=== PATIENT | female | born 1995 | race Caucasian/White ===

== ENCOUNTER 2020-06-14 13:21 | Emergency (ER) | payer BC, SELFPAY ==
[2020-06-14 13:59] VITALS: BP 116/75; PULSE 67; RESP 18; TEMP 36.7; O2SAT 100; BMI 22.1
--- NOTE | 2020-06-14 14:17 | HMH.EDUTC ---
[facility] [place] Clinical Impression: Carpal tunnel syndrome Qualifiers: Laterality: bilateral Qualified Code(s): G56.03 - Carpal tunnel syndrome, bilateral upper limbs Wrist pain Qualifiers: Laterality: bilateral Qualified Code(s): M25.531 - Pain in right wrist Migraine headache Qualifiers: Migraine type: unspecified Status migrainosus presence: without status migrainosus Intractability: not intractable Qualified Code(s): G43.909 - Migraine, unspecified, not intractable, without status migrainosus Disposition: Home, Self-Care Condition on Discharge: Good Instructions: Carpal Tunnel Syndrome, DI for Migraine, DI for Carpal Tunnel Syndrome Additional Instructions: Take the medications as directed. Follow up with orthopedics regarding your wrist symptoms. I put in a referral to Dr. Molina. Wear the elastic wrist splints that I prescribed while you sleep. Follow up with your doctor. GO TO THE ER FOR ANY WORSENING SYMPTOMS OR CONCERNS. Prescriptions: methylPREDNISolone [Medrol] 4 mg PO DIRECTED 6 Days #21 tab.[email or web address] Transmission Status: Received by [id number] Referrals: Jacqueline Isbell PA [Primary Care Provider] - Tami Molina MD [Physician] - Medical Decision Making - Medical Records Medical records reviewed: No: I reviewed the patient's medical records. - Wili Inquiry Pt receiving controlled substance: No Vital Signs: 06/14/20 13:59 06/14/20 15:08 Temperature 98.0 F 98.0 F Temperature Source Oral Oral Pulse Rate 67 Pulse Rate [Radial] 67 Respiratory Rate 18 18 Blood Pressure 116/75 Blood Pressure [Right Arm] 116/75 Blood Pressure Mean [Right Arm] 88 Blood Pressure Source Automatic Cuff Blood Pressure Source [Right Arm] Automatic Cuff Blood Pressure Position Sitting Blood Pressure Position [Right Arm] Sitting 02 Sat by Pulse Oximetry 100 Oxygen Delivery Method Room Air Room Air Orders (Tests/Meds): ED MEDICATIONS Discontinued Medications Generic Name Dose Route Start Last Admin Trade Name Freq PRN Reason Stop Dose Admin Ketorolac Tromethamine 60 mg 06/14/20 14:23 06/14/20 14:29 Toradol 60mg/2ml Vial IM 06/14/20 14:24 60 mg ONCE ONE Administration [facility] [place] - General Stated complaint: wrist pain,yuri harris Time Seen by Provider: 06/14/20 14:18 Mode of Arrival: Ambulatory Source of Information: Patient Limitations: No Limitations Description of Symptoms (Recalled from Triage Doc. by RN): bilateral wrist pain and migraines HEENT Symptoms (Recalled from RN notes): No Resp Symptoms (Recalled from RN notes): No Skin Symptoms (Recalled from RN notes): No MS Symptoms (Recalled from RN notes): Yes Functional Status (Recalled from RN notes): wnl - History of Present Illness Provider Complaint: She c/o chronic bilateral wrist pain and intermitent hand numbness. This has been ongoing for the past 3 months or so. She has been having a migraine headache for the past 2 days. She has taken tylenol with only minimal relief. - Related Data Previous Rx's Medication Instructions Recorded methylPREDNISolone [Medrol] 4 mg PO DIRECTED 6 Days #21 06/14/20 tab.ds.pk Allergies Allergy/AdvReac Type Severity Reaction Status Date / Time amoxicillin Allergy Verified 06/14/20 14:03 - Worker's Comp Is this a Worker's Comp case?: No [facility] History - Hepatitis A Screen Drug use history?: No High risk sexual behaviors?: No History of sexually transmitted infection?: No Currently employed?: No Childcare worker?: No Do you have indoor plumbing?: Yes Do you have electricity?: Yes Attestation statement:: This patient has been screened for Hepatitis A risk factors. I have reviewed the patient's past medical history: Yes - 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 Smoking Status: Current every day smoker Tobacco Type: e-cigarettes # Packs/Day (cigarettes): 1 Alcohol Intake: never Occupational Status: employed ROS Obtained: Yes All systems
[2020-06-14 15:08] VITALS: BP 116/75; PULSE 67; RESP 18; TEMP 36.7; O2SAT 100
== END 2020-06-14 15:08 | disposition home or self-care (01) ==
PROVIDERS: Emergency Provider Nurse Practitioner Family; PCP Physician Assistant
DX: G56.03 Carpal tunnel syndrome, bilateral upper limbs (principal); G43.909 Migraine, unspecified, not intractable, without status migrainosus; Z88.1 Allergy status to other antibiotic agents; F17.290 Nicotine dependence, other tobacco product, uncomplicated
CPT/HCPCS: 96372; 99201

== ENCOUNTER → 2020-06-26 12:57 | Outpatient (CLI) | payer BC, SELFPAY ==
--- NOTE | 2020-06-26 13:02 | XR_ITS ---
PROCEDURE: XR WRIST LT MIN 3V CLINICAL INDICATION: left wrist pain COMPARISON: DX XR WRIST RT MIN 3V from 06/26/2020 FINDINGS: No fracture or dislocation. No lytic or blastic change. There is normal mineralization. The joint spaces are well-preserved. No significant degenerative/arthritic changes. No erosive changes evident. Other findings:There is a faint curvilinear lucency along the radial styloid process region. This is of questionable clinical significance. Possibly due to artifact from underlying prominent trabeculation. Please correlate as the patient's area of pain and tenderness IMPRESSION: No definite acute finding. Please see above for detail Dictated by: Jim Márquez MD 06/26/2020 16:56 Jim Márquez MD in [place] 06/26/2020 16:56
--- NOTE | 2020-06-26 13:02 | XR_ITS ---
PROCEDURE: XR WRIST RT MIN 3V CLINICAL INDICATION: right wrist pain COMPARISON: No exams were available for comparison FINDINGS: No fracture or dislocation. No lytic or blastic change. There is normal mineralization. The joint spaces are well-preserved. No significant degenerative/arthritic changes. No erosive changes evident. Other findings:None. IMPRESSION: No acute findings. Dictated by: Jim Márquez MD 06/26/2020 16:54 Jim Márquez MD in [place] 06/26/2020 16:54
== END ==
PROVIDERS: PCP Physician Assistant; Visit Provider Orthopaedic Surgery
DX: M25.532 Pain in left wrist (principal); M25.531 Pain in right wrist
CPT/HCPCS: 73110

== ENCOUNTER → 2020-07-24 11:53 | Outpatient (CLI) | payer BC, SELFPAY ==
[2020-07-24 14:21] LABS: HCG,Quantitative < 2 mIU/ml (0-5.42)
== END ==
PROVIDERS: Visit Provider Obstetrics & Gynecology
DX: Z32.00 Encounter for pregnancy test, result unknown (principal); E28.2 Polycystic ovarian syndrome
CPT/HCPCS: 36415; 84144; 84702

== ENCOUNTER → 2020-09-23 17:43 | Outpatient (CLI) | payer BC, SELFPAY ==
[2020-09-23 19:24] LABS: Basophils % 0.6 % (0.1-2.0); Eosinophils # 0.1 K/mm3 (0.0-0.4); Eosinophils % 1.7 % (0.1-12.0); Hematocrit 46.4 % (37.0-47.0); Lymphocytes # 2.1 K/mm3 (0.7-4.5); Mean Corpuscular HGB Conc 32.2 g/dL (31.8-35.4); Mean Corpuscular Volume 96.3 fl (81-99); Mean Platelet Volume 8.7 fl (7.4-10.4); Monocytes # 0.3 K/mm3 (0.1-1.0); Monocytes % 5.5 % (1.7-9.3); Neutrophils # 3.2 K/mm3 (1.8-7.8); Neutrophils % 55.2 % (37.0-80.0); Platelet Count 253 K/mm3 (142-424); Red Blood Count 4.82 M/mm3 (4.20-5.40); Red Cell Distribution Width 12.3 % (11.5-17.5); White Blood Count 5.8 K/mm3 (4.8-10.8)
[2020-09-23 19:30] LABS: Alanine Aminotransferase 10 U/L (12-78); Albumin Level 4.7 g/dl (3.5-5.0); Albumin/Globulin Ratio 1.5 (1.1-1.8); Alkaline Phosphatase 64 U/L (38-126); Anion Gap 13.2 mEq/L (5-15); Aspartate Amino Transferase 19 U/L (14-36); Bilirubin,Total 0.4 mg/dl (0.2-1.3); Blood Urea Nitrogen 16 mg/dl (7-17); Calcium 9.6 mg/dl (8.4-10.2); Carbon Dioxide 30 mmol/L (22.0-30.0); Chloride 103 mmol/L (98-107); Chol/HDL Ratio 2.8 (1-3.5); Cholesterol 165 mg/dl (140-200); Estimated Glomerular Filt Rate 87 ml/min (>60); GFR (African American) 106 ML/MIN (>60); Globulin 3.1 g/dL (1.3-3.2); Glucose 90 mg/dl (74-100); HDL Cholesterol 58 mg/dl (40-60); Potassium 4.2 mmoL/L (3.5-5.1); Sodium 142 mmol/L (136-145); Total Protein,Serum 7.8 g/dl (6.3-8.2); Triglycerides 88 mg/dl (30-150); VLDL Cholesterol 18 mg/dL (0-40)
[2020-09-23 19:41] LABS: Direct LDL Cholesterol 88.65 mg/dL (100-129)
[2020-09-23 19:45] LABS: Free T4 (Free Thyroxine) 1.03 ng/dl (0.78-2.19)
[2020-09-23 19:47] LABS: 25-OH Vitamin D, Total 34.2 ng/mL (30-100)
[2020-09-23 20:01] LABS: Thyroid Stimulating Hormone 1.67 uIU/mL (0.465-4.68)
== END ==
PROVIDERS: Visit Provider Physician Assistant
DX: Z00.00 Encounter for general adult medical examination without abnormal findings (principal)
CPT/HCPCS: 80053; 80061; 82306; 84439; 84443; 85025

== ENCOUNTER → 2020-10-12 12:56 | Outpatient (CLI) | payer BC, SELFPAY ==
[2020-10-12 14:49] LABS: HCG,Quantitative < 2 mIU/ml (0-5.42)
== END ==
PROVIDERS: Visit Provider Obstetrics & Gynecology
DX: N92.6 Irregular menstruation, unspecified (principal)
CPT/HCPCS: 36415; 84702

== ENCOUNTER → 2020-10-14 10:10 | Outpatient (CLI) | payer BC, SELFPAY ==
[2020-10-14 11:20] LABS: HCG,Quantitative < 2 mIU/ml (0-5.42)
== END ==
PROVIDERS: Visit Provider Obstetrics & Gynecology
DX: Z32.00 Encounter for pregnancy test, result unknown (principal)
CPT/HCPCS: 36415; 84702

== ENCOUNTER 2020-11-17 16:51 | Emergency (ER) | payer BC, SELFPAY ==
[2020-11-17 16:51] VITALS: BP 96/64; PULSE 71; RESP 14; TEMP 36.3; O2SAT 96; BMI 24.2
--- NOTE | 2020-11-17 17:39 | HMH.EDUTC ---
[facility] – [place] Disposition Clinical Impression: Viral syndrome, Exposure to COVID-19 virus Disposition: Home, Self-Care Condition on Discharge: Good Instructions: Preventing the Spread of Coronavirus Discharge Instructions Additional Instructions: Drink plenty of fluids. Take tylenol for pain or fever. Return if you begin to have difficulty breathing. Follow up with your regular doctor. GO TO THE ER FOR ANY WORSENING SYMPTOMS Referrals: Jacqueline Isbell PA [Primary Care Provider] - Time of Disposition: 17:48 Medical Decision Making - Medical Records Medical records reviewed: No: I reviewed the patient's medical records. - Wili Inquiry Pt receiving controlled substance: No Vital Signs: 11/17/20 16:51 11/17/20 17:49 Temperature 97.4 F L 97.4 F L Temperature Source Oral Oral Pulse Rate 71 Pulse Rate [Right] 71 Respiratory Rate 14 14 Blood Pressure 96/64 L Blood Pressure [Right Arm] 96/64 L Blood Pressure Mean [Right Arm] 74 02 Sat by Pulse Oximetry 96 [facility] – [place] HPI - General Stated complaint: covid test Time Seen by Provider: 11/17/20 17:39 Mode of Arrival: Ambulatory Description of Symptoms (Recalled from Triage Doc. by RN): pt request covid pt c/o BROWN, chills, body ache HEENT Symptoms (Recalled from RN notes): Yes Resp Symptoms (Recalled from RN notes): Yes Skin Symptoms (Recalled from RN notes): No MS Symptoms (Recalled from RN notes): No Functional Status (Recalled from RN notes): wnl - History of Present Illness Provider Complaint: She c/o chills, body aches, and feeling bad for the past 2 days. - Related Data Previous Rx's Medication Instructions Recorded sumatriptan succinate 100 mg tablet See Rx Instructions .ROUTE 08/26/20 .COMPLEX #9 each azithromycin 250 mg tablet See Rx Instructions PO .COMPLEX #6 09/23/20 tab clonazepam 0.5 mg tablet 0.5 mg PO BID #60 tab 09/23/20 prednisone 20 mg tablet 20 mg PO BID #10 tab 09/23/20 Allergies Allergy/AdvReac Type Severity Reaction Status Date / Time amoxicillin Allergy Verified 11/17/20 17:27 - Worker's Comp Is this a Worker's Comp case?: No Is this an [facility] Worker's Comp?: No Is this a [facility] Worker's Comp?: No [facility] History - Hepatitis A Screen Drug use history?: No High risk sexual behaviors?: No History of sexually transmitted infection?: No Currently employed?: No Childcare worker?: No Do you have indoor plumbing?: Yes Do you have electricity?: Yes Attestation statement:: This patient has been screened for Hepatitis A risk factors. I have reviewed the patient's past medical history: Yes 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: Reports:: Anxiety, Migraine Other 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: Reports: Other Other Surgeries: Yes: Other Amputation: No Fractures: No Comment: kidney stone, wisdom teeth - 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 Smoking Status: Current every day smoker Tobacco Type: e-cigarettes # Packs/Day (cigarettes): 1 Alcohol Intake: current Alcohol Intake Frequency:: holidays/special occasions only Substance Use Type: denies use Occupational Status: unemployed - Psychiatric History Pschychiatric History:: Reports:: Anxiety Family Hx:: Heart Attack, Alcoholism ROS Obtained: Yes All systems reviewed & no additional complaints - Constitutional Constitutional: Reports system reviewed and no additional complaints, except as docu - Eyes Eyes: Reports system reviewed and no additional complaints, except as docu - ENT Ears, Nose, Mouth, and Throat: Reports system reviewed and no additional complaints, except as docu - Cardiovascular Cardiovascular: Reports system reviewed and no additional complaints, except as docu - Respiratory Respiratory: Reports system reviewed and no additional complaints, except as docu - Gastrointestinal Gastrointestingal: Reports: system reviewed and no additional complaints, except as docu Physical Exam - General General appearance: alert, in no apparent distress - Head Head exam: atraumatic, no
[2020-11-17 17:49] VITALS: BP 96/64; PULSE 71; RESP 14; TEMP 36.3; O2SAT 96
[2020-11-19 12:12] LABS: Covid-19 Nasal PCR Sendout P&C NEGATIVE
== END 2020-11-17 17:53 | disposition home or self-care (01) ==
PROVIDERS: Emergency Provider Nurse Practitioner Family; PCP Physician Assistant
DX: Z20.822 Contact with and (suspected) exposure to COVID-19 (principal); B34.9 Viral infection, unspecified; G43.709 Chronic migraine without aura, not intractable, without status migrainosus; F17.290 Nicotine dependence, other tobacco product, uncomplicated
CPT/HCPCS: 99202; G0463; U0004

== ENCOUNTER → 2020-12-28 13:37 | Outpatient (CLI) | payer BC, SELFPAY ==
[2020-12-28 15:15] LABS: HCG,Quantitative 330 mIU/ml (0-5.42)
== END ==
PROVIDERS: Visit Provider Obstetrics & Gynecology
DX: Z32.00 Encounter for pregnancy test, result unknown (principal)
CPT/HCPCS: 84702

== ENCOUNTER → 2020-12-29 12:17 | Outpatient (CLI) | payer BC, SELFPAY ==
[2020-12-29 13:26] LABS: HCG,Quantitative 263 mIU/ml (0-5.42)
== END ==
PROVIDERS: Visit Provider Obstetrics & Gynecology
DX: Z32.00 Encounter for pregnancy test, result unknown (principal)
CPT/HCPCS: 36415; 84702

== ENCOUNTER → 2021-02-08 10:03 | Outpatient (CLI) | payer BC, SELFPAY ==
[2021-02-08 11:26] LABS: HCG,Quantitative 13323 mIU/ml (0-5.42)
== END ==
PROVIDERS: Visit Provider Obstetrics & Gynecology
DX: Z34.90 Encounter for supervision of normal pregnancy, unspecified, unspecified trimester (principal)
CPT/HCPCS: 36415; 84702

== ENCOUNTER → 2021-02-10 10:38 | Outpatient (CLI) | payer BC, SELFPAY ==
[2021-02-10 12:21] LABS: HCG,Quantitative 19828 mIU/ml (0-5.42)
== END ==
PROVIDERS: Visit Provider Obstetrics & Gynecology
DX: Z34.90 Encounter for supervision of normal pregnancy, unspecified, unspecified trimester (principal)
CPT/HCPCS: 36415; 84702

== ENCOUNTER → 2021-02-19 13:15 | Outpatient (CLI) | payer BC, SELFPAY ==
--- NOTE | 2021-02-19 13:15 | US_ITS ---
PROCEDURE: US OB <= 14 WEEKS FETUS CLINICAL INDICATION: Dates Evaluate for dates COMPARISON: No exams were available for comparison FINDINGS: An intrauterine gestational sac is present with a pole with a crown-rump length of 1.06cm correlating to gestational age of 7weeks 2days. heart tones are present with an FHR of 140bpm. Yolk sac is noted. There is a 1.6 cm right corpus luteum IMPRESSION: Live IUP at 7 weeks 2 days Estimated due date by Ultrasound is 10/06/2021 Dictated by: Jim Márquez MD 02/19/2021 19:10 Jim Márquez MD in [place] 02/19/2021 19:10
== END ==
PROVIDERS: PCP Physician Assistant; Visit Provider Obstetrics & Gynecology
DX: Z34.90 Encounter for supervision of normal pregnancy, unspecified, unspecified trimester (principal)
CPT/HCPCS: 76801

== ENCOUNTER → 2021-02-25 15:43 | Outpatient (CLI) | payer BC, SELFPAY ==
[2021-02-25 16:19] LABS: Basophils % 0.3 % (0.1-2.0); Eosinophils # 0.1 K/mm3 (0.0-0.4); Eosinophils % 0.6 % (0.1-12.0); Hematocrit 43.1 % (37.0-47.0); Hemoglobin 13.9 g/dL (12.2-16.2); Lymphocytes # 1.9 K/mm3 (0.7-4.5); Lymphocytes % 22.2 % (10-50); Mean Corpuscular HGB Conc 32.3 g/dL (31.8-35.4); Mean Corpuscular Hemoglobin 30.1 pg (27.0-31.2); Mean Corpuscular Volume 93.1 fl (81-99); Mean Platelet Volume 8.4 fl (7.4-10.4); Monocytes # 0.3 K/mm3 (0.1-1.0); Monocytes % 3.5 % (1.7-9.3); Neutrophils # 6.2 K/mm3 (1.8-7.8); Neutrophils % 73.4 % (37.0-80.0); Platelet Count 241 K/mm3 (142-424); Red Blood Count 4.63 M/mm3 (4.20-5.40); Red Cell Distribution Width 12.3 % (11.5-17.5); White Blood Count 8.5 K/mm3 (4.8-10.8)
[2021-02-27 08:58] LABS: HIV Screen 4th Generation wRfx Non Reactive (Non Reactive); Rubella Antibodies, IgG 5.62 index (Immune >0.99)
[2021-02-27 09:12] LABS: Rapid Plasma Reagin Ab Titer Non Reactive (NonRea<1:1)
[2021-02-27 17:14] LABS: Hepatitis B Surface Antigen Negative (Negative); Hepatitis C Antibody <0.1 s/co ratio (0.0-0.9)
== END ==
PROVIDERS: Visit Provider Obstetrics & Gynecology
DX: Z34.90 Encounter for supervision of normal pregnancy, unspecified, unspecified trimester (principal)
CPT/HCPCS: 36415; 85025; 86592; 86703; 86762; 86850; 87340; 87380; G0432

== ENCOUNTER 2021-03-19 09:43 | Emergency (ER) | payer BC, SELFPAY ==
[2021-03-19 09:45] VITALS: BP 122/59; PULSE 95; RESP 20; TEMP 36.9; O2SAT 98; BMI 25.9
--- NOTE | 2021-03-19 10:11 | HMH.EDUTC ---
[facility] – [place] Disposition Clinical Impression: Strep throat Disposition: Home, Self-Care Condition on Discharge: Good Instructions: DI for Strep Throat Additional Instructions: Start antibiotics today be sure to take it as ordered with the full length of time although you should start feeling better in 24-48 hours. Change toothbrush and toothpaste 24-48 hours after starting antibiotics Tylenol or Motrin as needed for fever or pain Encourage fluids, water, Gatorade, Powerade, try cold fluids, popsicles, ice cream will make it feel better You are contagious for 24 hours. Avoid kissing anyone, no eating or drinking after anyone. You are contagious. Follow-up the ER for new or worsening symptoms or no noticeable improvement over the next 24-48 hours. Follow-up with PCP this week. Prescriptions: Azithromycin [Zithromax 250mg tab] 250 mg PO DIRECTED #6 tab Transmission Status: Pending to [facility] Referrals: Jacqueline Isbell PA [Primary Care Provider] - Time of Disposition: 10:19 Medical Decision Making - Wili Inquiry Pt receiving controlled substance: No Vital Signs: 03/19/21 09:45 Temperature 98.4 F Temperature Source Oral Pulse Rate [Left Brachial] 95 H Respiratory Rate 20 Blood Pressure [Left Arm] 122/59 L Blood Pressure Mean [Left Arm] 80 Blood Pressure Source [Left Arm] Automatic Cuff Blood Pressure Position [Left Arm] Sitting 02 Sat by Pulse Oximetry 98 Oxygen Delivery Method Room Air [facility] [place] HPI - General Chief complaint: Urgent [facility] Stated complaint: sore throat,cough Time Seen by Provider: 03/19/21 10:11 Mode of Arrival: Ambulatory Source of Information: Patient Limitations: No Limitations Description of Symptoms (Recalled from Triage Doc. by RN): PATIENT C/O SORE THROAT X 2-3 DAYS. SON RECENTLY TESTED POSITIVE FOR STREP. PATIENT IS 11 WEEKS HEENT Symptoms (Recalled from RN notes): Yes Resp Symptoms (Recalled from RN notes): No Skin Symptoms (Recalled from RN notes): No MS Symptoms (Recalled from RN notes): No Functional Status (Recalled from RN notes): WNL - History of Present Illness Provider Complaint: 25 yr old female presents for sore throat x3 days. son recently dx with strep.pt is - Related Data Previous Rx's Medication Instructions Recorded promethazine 12.5 mg tablet 12.5 mg PO Q6H PRN #30 tab 02/23/21 Azithromycin [Zithromax 250mg 250 mg PO DIRECTED #6 tab 03/19/21 tab] Allergies Allergy/AdvReac Type Severity Reaction Status Date / Time amoxicillin Allergy Verified 03/18/21 11:40 - Worker's Comp Is this a Worker's Comp case?: No H History - Hepatitis A Screen Drug use history?: No High risk sexual behaviors?: No History of sexually transmitted infection?: No Currently employed?: No Childcare worker?: No Do you have indoor plumbing?: Yes Do you have electricity?: Yes Attestation statement:: This patient has been screened for Hepatitis A risk factors. I have reviewed the patient's past medical history: Yes 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: Reports:: Anxiety, Migraine Other 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: Reports: Other Other Surgeries: Yes: Other Amputation: No Fractures: No Comment: kidney stone, wisdom teeth - 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 Smoking Status: Former smoker Tobacco Type: e-cigarettes # Packs/Day (cigarettes): 1 Alcohol Intake: never Alcohol Intake Frequency:: holidays/special occasions only Substance Use Type: denies use Occupational Status: other - Psychiatric History Pschychiatric History:: Reports:: Anxiety Family Hx:: Heart Attack, Alcoholism ROS Obtained: Yes Systems reviewed as appropriate & no additional complaints - Constitutional Constitutional: Reports system reviewed and no additional complaints, except as docu, Denies fever(s) - Eyes Eyes: Reports system reviewed and no additional complaints, except as docu, Denies blurry vision - ENT Ears, Nose, Mouth, and Throat: Reports system reviewed and no jose
[2021-03-19 10:13] LABS: UTC Strep Screen (Rapid) Positive (Negative)
[2021-03-19 10:28] VITALS: BP 122/59; PULSE 95; RESP 20; TEMP 36.9; O2SAT 98
== END 2021-03-19 10:30 | disposition home or self-care (01) ==
PROVIDERS: Emergency Provider Nurse Practitioner Family; PCP Physician Assistant
DX: J02.0 Streptococcal pharyngitis (principal); Z3A.11 11 weeks gestation of pregnancy
CPT/HCPCS: 87880; 99202; G0463

== ENCOUNTER 2021-04-22 15:01 | Emergency (ER) | payer BC, SELFPAY ==
[2021-04-22 15:05] VITALS: BP 137/81; PULSE 78; RESP 18; TEMP 36.9; O2SAT 98; BMI 25.8
[2021-04-22 15:35] LABS: UTC Strep Screen (Rapid) Negative (Negative)
[2021-04-22 15:36] LABS: UTC Influenza A Antigen Negative (Negative); UTC Influenza B Antigen Negative (Negative)
[2021-04-22 15:37] VITALS: BP 137/81; PULSE 78; RESP 18; TEMP 36.9; O2SAT 98
--- NOTE | 2021-04-22 15:38 | HMH.EDUTC ---
[facility] – [place] Dis[place] Clinical Impression: Viral syndrome Disposition: Home, Self-Care Condition on Discharge: Good Instructions: Sore Throat, Diarrhea Additional Instructions: *Monitor Temp, Tylenol as directed/as needed Tylenol every 4 hours (as long as your family doctor has told you that you can take it) for fever or pain. and straight to ER if unable to lower temp less than 101.0 after medication given *Warm salt water gargles may help to soothe the throat *Throat Lozenges *Warm fluids like tea with honey may help to soothe the throat *Sleep elevated *Humidifier/Vaporizer *Flonase 2 sprays in each nostril daily but be aware that it may take 2-3 days before you notice improvement Discuss with your OBGYN medications that is safe during for headaches and fever Your throat swab was sent for culture. Those results are typically sent to your primary care. Be sure to follow up in 2-3 days with your family doctor/primary care physician if no improvement so they can review those result and treat if necessary. If you don?t have a primary care doctor, I recommend you get one but in the mean time, you will have to return to a walk in clinic Follow up IMMEDIATELY for new or worsening symptoms or no Noticeable improvement over the next 48-72 hours. 911 for difficulty breathing or swallowing You were tested for today for COVID19 your test result should be back in the next 24-48 hours, you may call to the [facility] to see if your test results are back in the next 48 hours [phone] [facility] hours are 9am-9pm You was given a handout with instructions for Self Quarantine and Self isolation for while you wait on test results and what to do if they are positive If you are positive the Health Dept will be contacting you also Referrals: Jacqueline Isbell PA [Primary Care Provider] - As needed Time of Disposition: 15:42 Medical Decision Making - Wili Inquiry Pt receiving controlled substance: No Wili was queried for this patient: No Vital Signs: 04/22/21 15:05 04/22/21 15:37 Temperature 98.4 F 98.4 F Temperature Source Oral Pulse Rate 78 Pulse Rate [Right Brachial] 78 Respiratory Rate 18 18 Blood Pressure 137/81 Blood Pressure [Right Arm] 137/81 Blood Pressure Mean [Right Arm] 99 Blood Pressure Source [Right Arm] Automatic Cuff Blood Pressure Position [Right Arm] Sitting 02 Sat by Pulse Oximetry 98 Oxygen Delivery Method Room Air - Lab Data Lab results reviewed: Yes: I reviewed the patient's lab results. Lab Results 04/22/21 15:16: Influenza Type A Ag Negative, Influenza Type B Ag Negative 04/22/21 15:16: Strep Scn Rapid Clinic Negative Orders (Tests/Meds): ORDERS Category Date Time Status Covid-19 Nasal PCR ([facility]) Routine Lab 04/22/21 15:10 Received Strep Screen Confirmation Stat Micro 04/22/21 15:16 Received [facility] UTC HPI - General Stated complaint: covid test Time Seen by Provider: 04/22/21 15:38 Mode of Arrival: Ambulatory Source of Information: Patient Limitations: No Limitations Description of Symptoms (Recalled from Triage Doc. by RN): PATIENT C/O FATIGUE, DIARRHEA, AND HEADACHE. REQUESTING COVID TEST HEENT Symptoms (Recalled from RN notes): Yes Resp Symptoms (Recalled from RN notes): No Skin Symptoms (Recalled from RN notes): No MS Symptoms (Recalled from RN notes): No Functional Status (Recalled from RN notes): WNL - History of Present Illness Provider Complaint: Patient states that she has not felt well for the last couple of days State that she has been having scratchy throat, headache diarrhea and feeling achy and tired States that she is 16wks OB and was worried and wanted to get tested to make sure she didnt have flu strep or COVID denies known fever - Related Data Previous Rx's Medication Instructions Recorded promethazine 12.5 mg tablet 12.5 mg PO Q6H PRN #30 tab 02/23/21 Allergies Allergy/AdvReac Type Severity Reaction Status Date / Time amoxicillin Allergy
== END 2021-04-22 15:44 | disposition home or self-care (01) ==
PROVIDERS: Emergency Provider Nurse Practitioner; PCP Physician Assistant
DX: B34.8 Other viral infections of unspecified site (principal); F41.9 Anxiety disorder, unspecified; Z87.891 Personal history of nicotine dependence
CPT/HCPCS: 87804; 87880; 99202; G0463; U0003

== ENCOUNTER → 2021-05-21 12:43 | Outpatient (CLI) | payer BC, SELFPAY ==
--- NOTE | 2021-05-21 12:48 | US_ITS ---
PROCEDURE: US OB >= 14 WEEKS FETUS CLINICAL INDICATION: OB complete Anatomy exam COMPARISON: No exams were available for comparison FINDINGS: Single viable intrauterine gestation. Breech position. Placenta: Posteriorplacenta grade 1. There is average amount fluid. The cervix appears satisfactory. Complete survey performed and was unremarkable on the submitted images as in PACS. No discrete anomalies identified on survey imaging by technologist. Active fetus. Three-vessel cord with satisfactory umbilical cord insertion. 4- chamber heart noted. Survey of brain & ventricles Unremarkable. Face and neck survey unremarkable. Diaphragm and chest views unremarkable. Abdomen: Both kidneys noted and unremarkable. Stomach noted and satisfactory. Spine: Survey of the spine satisfactory with no anomalies identified nor imaged. Both arms and legs noted. Amniotic Fluid: Adequate. Maternal adnexa: No significant findings. Measurements: Average ultrasound age 20weeks 2days. Gestational Age 20weeks 2days Estimated due date by ultrasound age 1210/06/2021. Estimated weight 357g BPD = 20weeks 1day OFD = 20weeks 5days HC = 19weeks 5days AC = 20weeks 6days FL = 20weeks 3days Growth Percentile= 57% Heart Rate = 152bpm Cerebellum = 20weeks 4days Humerus = 20weeks 3days HC/AC is 1.1 CI is 0.76 FL/BPD is 0.71 FL/AC is 0.21 IMPRESSION: Live IUP at 20 weeks 2 days. Breech position. No obvious anomalies. All parameters correlate. Please see above for detail Dictated by: Jim Márquez MD 05/21/2021 17:18 Jim Márquez MD in [place] 05/21/2021 17:18
== END ==
PROVIDERS: PCP Physician Assistant; Visit Provider Obstetrics & Gynecology
DX: Z34.91 Encounter for supervision of normal pregnancy, unspecified, first trimester (principal)
CPT/HCPCS: 76805

== ENCOUNTER → 2021-07-01 11:16 | Outpatient (CLI) | payer BC, SELFPAY ==
[2021-07-01 11:54] LABS: Basophils % 0.2 % (0.1-2.0); Eosinophils # 0.1 K/mm3 (0.0-0.4); Eosinophils % 0.7 % (0.1-12.0); Hematocrit 36.8 % (37.0-47.0); Lymphocytes # 1.7 K/mm3 (0.7-4.5); Lymphocytes % 23.2 % (10-50); Mean Corpuscular HGB Conc 32.6 g/dL (31.8-35.4); Mean Corpuscular Hemoglobin 31.9 pg (27.0-31.2); Mean Corpuscular Volume 97.7 fl (81-99); Mean Platelet Volume 8.1 fl (7.4-10.4); Monocytes # 0.3 K/mm3 (0.1-1.0); Monocytes % 4.1 % (1.7-9.3); Neutrophils # 5.3 K/mm3 (1.8-7.8); Neutrophils % 71.8 % (37.0-80.0); Platelet Count 296 K/mm3 (142-424); Red Blood Count 3.76 M/mm3 (4.20-5.40); Red Cell Distribution Width 13.4 % (11.5-17.5); White Blood Count 7.3 K/mm3 (4.8-10.8)
[2021-07-01 11:58] LABS: Glucose,Fasting 79 mg/dl (74-100)
[2021-07-01 13:07] LABS: Glucose 1 Hour 130 mg/dL (74-100)
== END ==
PROVIDERS: Visit Provider Obstetrics & Gynecology
DX: Z34.90 Encounter for supervision of normal pregnancy, unspecified, unspecified trimester (principal)
CPT/HCPCS: 36415; 82951; 85025

== ENCOUNTER 2021-08-10 00:05 | Outpatient (CLI) | payer BC, SELFPAY ==
[2021-08-10 00:07] VITALS: BMI 29.0
[2021-08-10 00:18] VITALS: RESP 20; TEMP 37; O2SAT 99; BMI 29.0
[2021-08-10 01:46] LABS: Microscopic, Urine URINE MICROSCOPIC (MICROSCOPIC)
[2021-08-10 01:47] LABS: Appearance,Urine CLEAR (Clear); Bilirubin,Urine Negative (Negative); Blood, Urine TRACE-L (Negative); Color,Urine YELLOW (Yellow); Glucose,Urine (UA) Negative (Negative); Ketones,Urine Negative (Negative); Leukocyte Esterase,Urine Negative (Negative); Nitrate,Urine Negative (Negative); Protein,Urine Negative (Negative); Specific Gravity, Urine 1.015 (1.005-1.030); Urobilinogen,Urine 0.2 EU/dl (0.2)
[2021-08-10 01:59] LABS: Barbiturates Screen,Urine Negative ng/ml (<200)
[2021-08-10 02:00] LABS: Benzodiazepines Screen,Urine Negative ng/ml (<200)
[2021-08-10 02:01] LABS: Amphetamine/Metha Screen,Urine Negative ng/ml (<1000); Cocaine Screen,Urine Negative ng/ml (<300)
[2021-08-10 02:02] LABS: Cannabinoid Screen,Urine Negative ng/ml (<50); Methadone Screen,Urine Negative ng/ml (<300)
[2021-08-10 02:04] LABS: Opiate Screen,Urine Negative ng/ml (<300); Phencyclidine Screen,Urine Negative ng/ml (<25)
[2021-08-10 02:19] LABS: Bacteria,Urine 1+ /lpf
== END 2021-08-10 02:00 | disposition home or self-care (01) ==
LOC: LAB 00:06 → OB 00:07
PROVIDERS: PCP Physician Assistant; Visit Provider Obstetrics & Gynecology
DX: O47.03 False labor before 37 completed weeks of gestation, third trimester (principal); Z3A.31 31 weeks gestation of pregnancy
CPT/HCPCS: 59025; 80305; 81001; 96365; 96372; G0463

== ENCOUNTER → 2021-08-20 15:04 | Outpatient (CLI) | payer OTHER, SELFPAY ==
--- NOTE | 2021-08-20 15:14 | US_ITS ---
PROCEDURE: US OB FOLLOW UP CLINICAL INDICATION: Growth and ELISA FINDINGS: The following parameters are obtained: Average ultrasound age is Average 33weeks 1day Estimated due date by ultrasound is 10/07/2021. Estimated weight is 2,107g. This is 34 percentile. There is a single live fetus which is in cephalic presentation. The cervix is closed measuring 3 cm. The placenta is posterior and grade 1 BPD: 32weeks 5days OFD: 35 weeks 1 day HC: 33weeks 5days AC: 33weeks FL: 33weeks 1day heart rate: 138bpm bpm. HC/AC: 1.04 Cephalic index: 0.75 FL/BPD: 0.79 FL/AC: 0.22 Amniotic fluid index: 12.85cm IMPRESSION: Live IUP in cephalic presentation with an average ultrasound age 33 weeks 1 day and an estimated weight of 2107 g which is 34th percentile. Please see above for details Normal amniotic fluid index of 13 cm Dictated by: Jim Márquez MD 08/20/2021 16:22 Jim Márquez MD in [place] 08/20/2021 16:22
== END ==
PROVIDERS: PCP Physician Assistant; Visit Provider Obstetrics & Gynecology
DX: O36.60X0 Maternal care for excessive fetal growth, unspecified trimester, not applicable or unspecified (principal)
CPT/HCPCS: 76816

== ENCOUNTER 2021-09-06 05:08 | Outpatient (CLI) | payer OTHER, SELFPAY ==
[2021-09-06 05:40] VITALS: BMI 30.3
[2021-09-06 05:51] LABS: Microscopic, Urine URINE MICROSCOPIC (MICROSCOPIC)
[2021-09-06 05:55] LABS: Coronavirus 19, PCR Not Detected (NotDetected); Influenza A, PCR Not Detected (NotDetected); Influenza B, PCR Not Detected (NotDetected)
[2021-09-06 05:59] VITALS: BP 117/73; PULSE 112; RESP 18; TEMP 37; O2SAT 96; BMI 30.3
[2021-09-06 06:05] LABS: Appearance,Urine CLEAR (Clear); Bilirubin,Urine Negative (Negative); Blood, Urine Negative (Negative); Color,Urine YELLOW (Yellow); Glucose,Urine (UA) Negative (Negative); Ketones,Urine Negative (Negative); Leukocyte Esterase,Urine 1+ (Negative); Nitrate,Urine Negative (Negative); Protein,Urine Negative (Negative); Urobilinogen,Urine 0.2 EU/dl (0.2)
[2021-09-06 06:09] LABS: Fetal Membrane Rupture (Rapid) Negative (Negative)
[2021-09-06 06:15] LABS: Amorphous Sediment,Urine Trace /lpf
[2021-09-06 06:16] LABS: Barbiturates Screen,Urine Negative ng/ml (<200)
[2021-09-06 06:17] LABS: Amphetamine/Metha Screen,Urine Negative ng/ml (<1000); Benzodiazepines Screen,Urine Negative ng/ml (<200)
[2021-09-06 06:18] LABS: Cannabinoid Screen,Urine Negative ng/ml (<50); Cocaine Screen,Urine Negative ng/ml (<300)
[2021-09-06 06:19] LABS: Methadone Screen,Urine Negative ng/ml (<300)
[2021-09-06 06:20] LABS: Opiate Screen,Urine Negative ng/ml (<300); Phencyclidine Screen,Urine Negative ng/ml (<25)
== END 2021-09-06 08:45 | disposition home or self-care (01) ==
LOC: OBOUT 05:10 → OB 05:11
PROVIDERS: PCP Nurse Practitioner Family; Referring Provider Obstetrics & Gynecology; Visit Provider Nurse Practitioner Obstetrics & Gynecology
DX: O47.03 False labor before 37 completed weeks of gestation, third trimester (principal); Z3A.35 35 weeks gestation of pregnancy; Z20.822 Contact with and (suspected) exposure to COVID-19
CPT/HCPCS: 59025; 80305; 81001; 84112; 87086; 96365; 96366; 96372; C9803; G0463; U0003; U0005

== ENCOUNTER → 2021-09-09 15:39 | Outpatient (CLI) | payer OTHER, SELFPAY | PROVIDERS: Visit Provider Obstetrics & Gynecology | DX: Z34.90 Encounter for supervision of normal pregnancy, unspecified, unspecified trimester (principal) | CPT/HCPCS: 86403 ==

== ENCOUNTER 2021-09-20 11:05 | Inpatient (IN) | payer OTHER, SELFPAY ==
[2021-09-20 11:17] VITALS: BMI 31.3
[2021-09-20 11:46] LABS: Coronavirus 19, PCR Not Detected (NotDetected); Influenza A, PCR Not Detected (NotDetected); Influenza B, PCR Not Detected (NotDetected)
[2021-09-20 11:52] LABS: Basophils % 0.2 % (0.1-2.0); Eosinophils # 0.1 K/mm3 (0.0-0.4); Eosinophils % 0.6 % (0.1-12.0); Hematocrit 35.1 % (37.0-47.0); Hemoglobin 12.1 g/dL (12.2-16.2); Lymphocytes # 1.9 K/mm3 (0.7-4.5); Lymphocytes % 18.6 % (10-50); Mean Corpuscular HGB Conc 34.5 g/dL (31.8-35.4); Mean Corpuscular Hemoglobin 31.8 pg (27.0-31.2); Mean Platelet Volume 9.2 fl (7.4-10.4); Monocytes # 0.4 K/mm3 (0.1-1.0); Neutrophils # 7.7 K/mm3 (1.8-7.8); Neutrophils % 76.6 % (37.0-80.0); Platelet Count 233 K/mm3 (142-424); Red Blood Count 3.81 M/mm3 (4.20-5.40); Red Cell Distribution Width 13.7 % (11.5-17.5)
[2021-09-20 12:09] VITALS: BP 116/62; PULSE 89; RESP 20; TEMP 37.4; O2SAT 99; BMI 31.1
[2021-09-20 12:20] LABS: Appearance,Urine CLEAR (Clear); Bilirubin,Urine Negative (Negative); Blood, Urine TRACE-I (Negative); Color,Urine YELLOW (Yellow); Glucose,Urine (UA) Negative (Negative); Ketones,Urine Negative (Negative); Leukocyte Esterase,Urine TRACE (Negative); Microscopic, Urine URINE MICROSCOPIC (MICROSCOPIC); Nitrate,Urine Negative (Negative); PH,Urine 7.5 (5.0-8.5); Protein,Urine Negative (Negative); Specific Gravity, Urine 1.015 (1.005-1.030); Urobilinogen,Urine 0.2 EU/dl (0.2)
[2021-09-20 12:29] LABS: Benzodiazepines Screen,Urine Negative ng/ml (<200)
[2021-09-20 12:30] LABS: Amphetamine/Metha Screen,Urine Negative ng/ml (<1000); Barbiturates Screen,Urine Negative ng/ml (<200)
[2021-09-20 12:31] LABS: Cannabinoid Screen,Urine Negative ng/ml (<50)
[2021-09-20 12:32] LABS: Cocaine Screen,Urine Negative ng/ml (<300); Methadone Screen,Urine Negative ng/ml (<300)
[2021-09-20 12:33] LABS: Opiate Screen,Urine Negative ng/ml (<300)
[2021-09-20 12:34] LABS: Phencyclidine Screen,Urine Negative ng/ml (<25)
[2021-09-20 12:53] LABS: Squamous Epithelial Cell,Urine Occasional #/hpf (0-5)
--- NOTE | 2021-09-20 13:41 | HMH.PHAINT ---
MEDICATION RECONCILIATION COMPLETED ON PATIENT USING EXTERNAL FILL HISTORY FROM PHARMACY. -ROLANDA FERNÁNDEZ, [place]
--- NOTE | 2021-09-20 14:14 | HMH.HP ---
*Admission Date: 09/20/21 *Chief complaint: contractions *History of present illness: 25 yo @ 37 03/12 Patient presented to office this morning with complaint of regular contractions since early am She denies vaginal bleeding or leakage of fluid and reports normal movement Exam in office showed regular contractions q 3 minutes and cervical change from 2 cm to 4cm She was admitted directly to Labor and Delivery status reassuring with category 1 NST GBS negative H History I have reviewed the patient's past medical history: Yes 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: Reports:: Anxiety, Depression, Migraine *Have you ever received a pneumonia vaccine?: No *Have you received a flu vaccine this season?: Yes Other 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: Reports: Other Other Surgeries: Yes: Other. No: Amputation: No Fractures: No - *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 Smoking Status: Former smoker Tobacco Type: e-cigarettes # Packs/Day (cigarettes): 1 Alcohol Intake: never Alcohol Intake Frequency:: holidays/special occasions only Substance Use Type: denies use *Occupational Status:: unemployed *Travel in the last 8 weeks: None - Psychiatric History Expresses thoughts of harming self/others: None Pschychiatric History:: Reports:: Anxiety, Depression Family Hx:: Heart Attack, Alcoholism : 5 Para: 2 A: 2 Review of Systems - Review of Systems Review of systems:: pertinent systems reviewed and negative unless documented below - Constitutional Denies chills, Denies fever(s) - *Respiratory Denies cough, Denies shortness of breath - *Genitourinary Reports other (+ contractions), Denies abnormal vaginal bleeding Meds Home Medications Medication Instructions Recorded Confirmed Type promethazine 12.5 mg tablet 12.5 mg PO Q6H PRN tab 09/09/21 09/20/21 History Allergies Allergy/AdvReac Type Severity Reaction Status Date / Time amoxicillin Allergy Verified 09/20/21 10:44 Exam Vital signs and Labs for Last 24 Hours: Temp Pulse Resp BP Pulse Ox 99.3 F 89 20 116/62 99 09/20/21 12:09 09/20/21 12:09 09/20/21 12:09 09/20/21 12:09 09/20/21 12:09 Laboratory Results - last 24 hr 09/20/21 11:40: WBC 10.0, RBC 3.81 L, Hgb 12.1 L, Hct 35.1 L, MCV 92.0, MCH 31.8 H, MCHC 34.5, RDW 13.7, Plt Count 233, MPV 9.2, Neut % (Auto) 76.6, Lymph % (Auto) 18.6, [place] % (Auto) 4.0, Eos % (Auto) 0.6, Baso % (Auto) 0.2, Neut # (Auto) 7.7, Lymph # (Auto) 1.9, [place] # (Auto) 0.4, Eos # (Auto) 0.1, Baso # (Auto) 0.0 09/20/21 11:40: SARS-CoV-2 (PCR) Not detected, Influenza A Untype (PCR) Not detected, Influenza Type B (PCR) Not detected 09/20/21 11:40: Blood Type B Positive, Antibody Screen Negative 09/20/21 12:02: Urine Color Yellow, Urine Appearance Clear, Urine pH 7.5, Ur Specific [place] 1.015, Urine Protein Negative, Urine Glucose (UA) Negative, Urine Ketones Negative, Urine Blood Trace-i, Urine Nitrate Negative, Urine Bilirubin Negative, Urine Urobilinogen 0.2, Ur Leukocyte Esterase Trace, Urine RBC 3-5, Urine WBC 3-5, Ur Squamous Epith Cells Occasional, Urine Bacteria None 09/20/21 12:02: Urine Opiates Screen Negative, Urine Methadone Screen Negative, Ur Barbituates Screen Negative, Ur Phencyclidine Scrn Negative, Ur Amphetamines Screen Negative, U Benzodiazepines Scrn Negative, Urine Cocaine Screen Negative, U Marijuana (THC) Screen Negative I & O for Last 24 hours: Intake & Output 09/18/21 09/19/21 09/20/21 09/21/21 11:59 11:59 11:59 11:59 Weight 194 lb 194 lb - Constitutional no acute distress - *Routine HEENT Exam Head: Present: normocephalic Eye: Absent: conjunctival icterus ENT: Present: mucous membranes moist - *Routine Neck Exam Present: supple. Absent: lymphadenopathy - *Routine Respiratory Exam Present: CTA bilaterally - *Routine Cardiovascular Exam Present: RRR - *Routine Abdominal Exam Present: soft, normoactive bowel sounds. Absent: tenderness - *Routine Rectal Exam Rectal:: deferred - *Routine G
--- NOTE | 2021-09-20 15:17 | HMH.ANESCL ---
[facility] Anesthesia Checklist - Structural Data Admitted From: Inpatient Planned Operative Procedure/s: labor epidural Consent for Planned Operative Procedure(s) Verified: Yes - Airway Assessment C-Spine Mobility Assessed: Yes TMJ Mobility Assessed: Yes Dentition: Good Dentition - Neurological Assessment Level of Consciousness: Awake, Alert, Appropriate - Anesthesia Plan Anesthesia Risk discussed: Yes Anesthesia Plan: Verified ASA Class: II Anesthesia Type: Epidural - Preoperative Comments Pre-Operative Comments: proc exp to pt incl risks, pt agrees to proceed [facility] History I have reviewed the patient's past medical history: Yes 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: Reports:: Anxiety, Depression, Migraine *Have you ever received a pneumonia vaccine?: No *Have you received a flu vaccine this season?: Yes Other 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: Reports: Other Anesthesia experience/problems:: none Other Surgeries: Yes: Other. No: Amputation: No Fractures: No - *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 Smoking Status: Former smoker Tobacco Type: e-cigarettes # Packs/Day (cigarettes): 1 Alcohol Intake: never Alcohol Intake Frequency:: holidays/special occasions only Substance Use Type: denies use *Occupational Status:: unemployed *Travel in the last 8 weeks: None - Psychiatric History Expresses thoughts of harming self/others: None Pschychiatric History:: Reports:: Anxiety, Depression Family Hx:: Heart Attack, Alcoholism Para: 2 A: 2
--- NOTE | 2021-09-20 17:36 | HMH.LABNOT ---
Labor Note - Subjective: Date: 09/20/21 Time: 17:36 Comment:: irregular contractions with intermittent periods of regular contractions comfortable with epidural cervix 5cm with bloody show - Objective: NST:: Reactive Cervical Dilation:: 5 Effacement:: 80% Station: 0 - Assessment: Labor progressing?: Yes Patient Problems: All Active Problems 37 weeks gestation of (Acute) Strep throat (Acute) Active labor at term (Acute) History of delivery (Acute) Depression affecting (Acute) Bipolar disorder (Chronic) (Acute) Carpal tunnel syndrome (Acute) Wrist pain (Acute) Migraine headache (Acute) Viral syndrome (Acute) Exposure to COVID-19 virus (Acute) Depression (Chronic) Anxiety (Chronic) - Plan: Comment:: continue pitocin augmentation and frequent maternal positional changes anticipate
--- NOTE | 2021-09-20 20:18 | HMH.DN ---
- Delivery Note Delivery Date:: 09/20/21 Delivery Time:: 20:07 Anesthesia Type: Epidural Was labor medically induced?: No Infant delivered prior to 39 weeks?: Yes Justification for early elective delivery:: Active Labor Infant Gender: Female at 1 minute: 9 at 5 minutes: 9 Delivery Procedure:: Spontaneous vaginal delivery of liveborn female over intact perineum. Delivery uncomplicated No nuchal cord; no shoulder dystocia with delivery placed in MARY with mother immediately after umbilical cord clamped/cut, with standard nursing assessment performed Infant Apgars: 9 & 9 Placenta spontaneously expressed and examined; noted to be complete/intact. Vulva, vagina, and cervix inspected; no lacerations noted EBL: 300 cc All sponge/needle/instrument counts correct at conclusion of procedure Disposition: Mom/baby stable to recovery in LDRP Placental Delivery Description: Spontaneous
[2021-09-21 06:32] LABS: Hematocrit 33.3 % (37.0-47.0); Hemoglobin 11.1 g/dL (12.2-16.2)
[2021-09-21 07:25] VITALS: BP 129/62; PULSE 85; RESP 18; TEMP 36.7; O2SAT 97
[2021-09-21 12:12] VITALS: BP 108/55; PULSE 79; RESP 16; TEMP 36.4
--- NOTE | 2021-09-21 13:24 | HMH.ACPN2 ---
Internal Medicine - PN: Subj *Date: 09/21/21 *Time: 13:24 Interval history: PPD #1 No unusual complaints Lochia appropriate Tolerating regular diet Ambulating and voiding without difficulty Exam Vital signs and Labs for Last 24 Hours: Temp Pulse Resp BP Pulse Ox 97.6 F 79 16 108/55 L 97 09/21/21 12:12 09/21/21 12:12 09/21/21 12:12 09/21/21 12:12 09/21/21 07:25 Laboratory Results - last 24 hr 09/21/21 06:21: Hgb 11.1 L, Hct 33.3 L I & O for Last 24 hours: Intake & Output 09/19/21 09/20/21 09/21/21 09/22/21 11:59 11:59 11:59 11:59 Output Total 900 / 900 Balance -900 / -900 Weight 194 lb 194 lb Narrative: CONSTITUTIONAL: no acute distress HEENT: mucous membranes moist PULMONARY: breathing unlabored without audible wheezes CV: no tachycardia or visible JVD; normal LE peripheral pulses ABD: soft, NT/ND, no guarding : fundus firm at/below umbilicus SKIN: no visible rash or lesions EXT: 1+ edema LEs NEURO: alert/oriented, no altered mental status PSYCH: appropriate mood and demeanor Assessment and Plan (1) 37 weeks gestation of Status: Acute Category: Medical Code(s): Z3A.37 - 37 weeks gestation of (2) Active labor at term Status: Acute Category: Medical (3) History of delivery Problem details: G1 33 wks G2 40 wks Status: Acute Category: Medical Code(s): Z87.51 - Personal history of pre-term labor (4) Depression affecting Status: Acute Category: Medical Code(s): O99.340 - Other mental disorders complicating , unspecified trimester; F32.9 - Major depressive disorder, single episode, unspecified (5) Anxiety Status: Chronic Category: Medical Code(s): F41.9 - Anxiety disorder, unspecified (6) Vaginal delivery Status: Acute Category: Medical Code(s): O80 - Encounter for full-term uncomplicated delivery - Assessment and plan all Dx Assessment and Plan for all problems:: Routine care Anticipate discharge home tomorrow
[2021-09-21 16:45] VITALS: BP 108/66; PULSE 68; RESP 17; TEMP 36.7; O2SAT 96
[2021-09-21 23:46] VITALS: RESP 18
--- NOTE | 2021-09-22 11:13 | P.DS_ITS ---
General - General Admission date:: 09/20/21 Discharge date: 09/22/21 HPI HPI: 25 yo @ 37 5/ Patient presented to office this morning with complaint of regular contractions since early am She denies vaginal bleeding or leakage of fluid and reports normal movement Exam in office showed regular contractions q 3 minutes and cervical change from 2 cm to 4cm She was admitted directly to Labor and Delivery status reassuring with category 1 NST GBS negative Hospital Course Hospital Course: uncomplicated vaginal delivery course uneventful tolerating regular diet ambulating and voiding without difficulty lochia appropriate Rhogam Administration: Not Indicated Objective Vital signs: Temp Pulse Resp BP Pulse Ox 98.1 F 68 18 108/66 L 96 09/21/21 16:45 09/21/21 16:45 09/21/21 23:46 09/21/21 16:45 09/21/21 16:45 Narrative: CONSTITUTIONAL: no acute distress HEENT: mucous membranes moist PULMONARY: breathing unlabored without audible wheezes CV: no tachycardia or visible JVD; normal LE peripheral pulses ABD: soft, NT/ND, no guarding : fundus firm at/below umbilicus SKIN: no visible rash or lesions EXT: 1+ edema LEs NEURO: alert/oriented, no altered mental status PSYCH: appropriate mood and demeanor DS: Diagnosis - Discharge Diagnosis (1) 37 weeks gestation of Status: Acute (2) Active labor at term Status: Acute (3) History of delivery Status: Acute Problem details: G1 33 wks G2 40 wks (4) Depression affecting Status: Acute (5) Anxiety Status: Chronic (6) Vaginal delivery Status: Acute Discharge Plan - Patient Discharge Instructions ACTIVITY: Continue current activity DIET: regular diet Additional Instructions: *Nothing in the Vagina for weeks* *No strenuous activity* *No heavy lifting* Patient Instructions: Depression, Hemorrhage, DI for Pre- eclampsia, [facility] Post Discharge Instructions, Preventing the Spread of Coronavirus Discharge Instructions - Follow up Plan Follow up with: Mirlande Venegas MD [Staff Physician] - Disposition: Home, Self-Care Condition at discharge:: Stable Home Medications: Home Medications Medication Instructions Recorded Confirmed Type promethazine 12.5 mg tablet 12.5 mg PO Q6H PRN tab 09/09/21 09/20/21 History Prescriptions/Medication Reconciliation: New Acetaminophen [Acetaminophen 325mg tab] 650 mg PO Q4HP PRN tablet PRN Reason: Mild Pain Ibuprofen [Motrin 400mg tablet] 800 mg PO Q6HP PRN tablet PRN Reason: Mild To Moderate Pain Discontinued promethazine 12.5 mg tablet 12.5 mg PO Q6H PRN tab PRN Reason: Nausea And Vomiting - Problem Reconciliation Problems Reviewed?: Yes
== END 2021-09-22 13:33 | disposition home or self-care (01) | DRG 807 ==
PROVIDERS: Admitting Provider Obstetrics & Gynecology; PCP Physician Assistant; Visit Provider Obstetrics & Gynecology
DX: O99.344 Other mental disorders complicating childbirth (principal); Z37.0 Single live birth; Z3A.37 37 weeks gestation of pregnancy; F41.9 Anxiety disorder, unspecified; F32.A Depression, unspecified; Z87.891 Personal history of nicotine dependence
CPT/HCPCS: 59409; 59025; 80305; 81001; 85014; 85018; 85025; 86850; 94761; C1758; C9803; G0283; U0003; U0005

== ENCOUNTER 2021-10-19 16:41 | Emergency (ER) | payer OTHER, SELFPAY ==
[2021-10-19 18:40] VITALS: BP 108/69; PULSE 81; RESP 14; TEMP 37.3; O2SAT 97; BMI 16.1
--- NOTE | 2021-10-19 18:56 | HMH.EDUTC ---
[facility] [place] Disposition Clinical Impression: Strain of jaw, Jaw pain, non-TMJ Disposition: Home, Self-Care Condition on Discharge: Good Instructions: Jaw Pain: It's Not Just Stress, DI for Muscle Strain Additional Instructions: Rest and apply warm presses to your jaws for 15 minutes as tolerated three or four times per day Take the medications as directed. The muscle relaxer (cyclobenzaprine-flexeril) will make you drowsy so don't drive or operate heavy machinery after taking it. You should not breath feed after taking the muscle relaxers, as we discussed here. Follow up with your dentist. Follow up with your regular doctor. GO TO THE ER FOR ANY WORSENING SYMPTOMS Don't start the oral steroids until tomorrow, since you had the shot here today. Prescriptions: Cyclobenzaprine HCl [Flexeril 10mg tablet] 10 mg PO BIDP PRN #30 tab PRN Reason: Muscle Spasm Transmission Status: Received by [facility] methylPREDNISolone [Medrol] 4 mg PO DIRECTED 6 Days #21 packet Transmission Status: Received by [facility] Referrals: Jacqueline Isbell PA [Primary Care Provider] - Time of Disposition: 19:32 Medical Decision Making - Medical Records Medical records reviewed: No: I reviewed the patient's medical records. - [place]ili Inquiry Pt receiving controlled substance: No Vital Signs: 10/19/21 18:40 10/19/21 19:26 Temperature 99.2 F 99.2 F Temperature Source Oral Pulse Rate 81 Pulse Rate [Left] 81 Respiratory Rate 14 14 Blood Pressure 108/69 L Blood Pressure [Right Arm] 108/69 L Blood Pressure Mean [Right Arm] 82 02 Sat by Pulse Oximetry 97 Orders (Tests/Meds): ED MEDICATIONS Discontinued Medications Generic Name Dose Route Start Last Admin Trade Name Freq PRN Reason Stop Dose Admin Ketorolac Tromethamine 60 mg 10/19/21 19:03 10/19/21 19:21 Ketorolac 60mg/2ml Vial IM 10/19/21 19:04 60 mg ONCE ONE Administration Methylprednisolone Sodium Succinate 125 mg 10/19/21 19:03 10/19/21 19:21 Methylprednisolone Sod Succ 125mg Vial IM 10/19/21 19:04 125 mg ONCE ONE Administration [facility] HPI - General Stated complaint: strained/pulled jaw muscle Time Seen by Provider: 10/19/21 18:56 Mode of Arrival: Ambulatory Source of Information: Patient Limitations: No Limitations Description of Symptoms (Recalled from Triage Doc. by RN): pt c/o bilateral jaw pain and popping. x2 days. pt is currently and states she has been running a low grade fever due to mastitis. HEENT Symptoms (Recalled from RN notes): Yes (jaw pain and popping) Resp Symptoms (Recalled from RN notes): No Skin Symptoms (Recalled from RN notes): No MS Symptoms (Recalled from RN notes): No Functional Status (Recalled from RN notes): wnl - History of Present Illness Provider Complaint: She states that for the past 2 days she has had a severe jaw pain with opening and closing her mouth. She denies any injury. She has a history of having these symptoms from clenching her mouth with anxiety. She has had much worse anxiety this week and she states that is what has caused this. She has been breast feeding, but she is stopping that due to needing to resume her anxiety medications that she has been unable to take due to the breast feeding. In the past steroids and muscle relaxers have helped her when she has episodes like this. - Related Data Previous Rx's Medication Instructions Recorded Acetaminophen [Acetaminophen 325mg 650 mg PO Q4HP PRN tab 09/22/21 tab] Ibuprofen [Motrin 400mg 800 mg PO Q6HP PRN tab 09/22/21 tablet] naproxen 500 mg tablet 500 mg PO BID #60 tab 09/23/21 sulfamethoxazole 800 1 tab PO BID 10 Days #20 tab 09/29/21 mg-trimethoprim 160 mg tablet Cyclobenzaprine HCl [Flexeril 10mg 10 mg PO BIDP PRN #30 tab 10/19/21 tablet] methylPREDNISolone [Medrol] 4 mg PO DIRECTED 6 Days #21 10/19/21 packet Allergies Allergy/AdvReac Type
[2021-10-19 19:26] VITALS: BP 108/69; PULSE 81; RESP 14; TEMP 37.3
== END 2021-10-19 19:42 | disposition home or self-care (01) ==
PROVIDERS: Emergency Provider Nurse Practitioner Family; PCP Physician Assistant
DX: S09.11XA Strain of muscle and tendon of head, initial encounter (principal); F41.9 Anxiety disorder, unspecified; F17.290 Nicotine dependence, other tobacco product, uncomplicated
CPT/HCPCS: 96372; 99202; G0463

== ENCOUNTER 2021-11-09 14:00 | Emergency (ER) | payer OTHER, SELFPAY ==
[2021-11-09 15:08] VITALS: BP 0/0; PULSE 0; RESP 0; TEMP -17.7; TEMP 0
== END 2021-11-09 15:09 | disposition left against medical advice (07) ==
PROVIDERS: Emergency Provider Nurse Practitioner; PCP Physician Assistant
DX: Z53.21 Procedure and treatment not carried out due to patient leaving prior to being seen by health care provider (principal)

== ENCOUNTER → 2021-11-09 17:39 | Outpatient (CLI) | payer OTHER, SELFPAY | PROVIDERS: Visit Provider Nurse Practitioner Family | DX: R09.82 Postnasal drip (principal) ==

== ENCOUNTER → 2021-11-24 13:29 | Outpatient (CLI) | payer OTHER, SELFPAY | PROVIDERS: Visit Provider Nurse Practitioner | DX: Z20.822 Contact with and (suspected) exposure to COVID-19 (principal) | CPT/HCPCS: C9803; U0003; U0005 ==

== ENCOUNTER 2021-11-27 15:59 | Emergency (ER) | payer OTHER, SELFPAY ==
--- NOTE | 2021-11-27 16:26 | HMH.EDUTC ---
[place] Disposition Clinical Impression: Vaginal discharge Disposition: Home, Self-Care Condition on Discharge: Good Instructions: DI for Bacterial Vaginosis Additional Instructions: meds discussed if swab reads diff will call pt follow up with pcp if no improvement Prescriptions: metroNIDAZOLE [Metrogel-Vaginal] 70 gm VG HS 5 Days #5 each Prescription Printed Referrals: Jacqueline Isbell PA [Primary Care Provider] - Time of Disposition: 16:36 Medical Decision Making - [place]ili Inquiry Pt receiving controlled substance: No [place] HPI - General Chief complaint: [facility] Stated complaint: poss yeast inf Time Seen by Provider: 11/27/21 16:26 Mode of Arrival: Ambulatory Source of Information: Patient Limitations: No Limitations - History of Present Illness Provider Complaint: 25 yr old female presents for BV, pt states she has had BV in past and she is having the same smptoms. Pt states she has a odor and thick drainage, pt reports no new sex partners - Related Data Previous Rx's Medication Instructions Recorded Cyclobenzaprine HCl [Flexeril 10mg 10 mg PO BIDP PRN #30 tab 10/19/21 tablet] clonazepam 0.5 mg tablet 0.5 mg PO BID 30 Days #60 tab 10/25/21 norethindrone 1 mg-ethinyl 1 tab PO DAILY #28 tab 11/04/21 estradiol 20 mcg (21)-iron 75 mg (7) tablet guaifenesin 600 mg tablet, 600 mg PO Q12H PRN #30 tab 11/09/21 extended release 12 hr cariprazine 1.5 mg capsule 1.5 mg PO DAILY #30 cap 11/23/21 clonazepam 0.5 mg tablet 0.5 mg PO TID PRN #90 tab 11/23/21 metroNIDAZOLE [Metrogel-Vaginal] 70 gm VG HS 5 Days #5 each 11/27/21 Allergies Allergy/AdvReac Type Severity Reaction Status Date / Time amoxicillin Allergy Verified 11/23/21 15:[address] [facility] History - Hepatitis A Screen Attestation statement:: This patient has been screened for Hepatitis A risk factors. I have reviewed the patient's past medical history: Yes 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: Reports:: Anxiety, Depression, Migraine Other 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: Reports: Other Other Surgeries: Yes: Other. No: Amputation: No Fractures: No Comment: kidney stone, wisdom teeth - 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 Smoking Status: Former smoker Tobacco Type: e-cigarettes # Packs/Day (cigarettes): 1 Alcohol Intake: never Alcohol Intake Frequency:: holidays/special occasions only Substance Use Type: denies use Occupational Status: unemployed - Psychiatric History Pschychiatric History:: Reports:: Anxiety, Depression Family Hx:: Heart Attack, Alcoholism ROS Obtained: Yes Systems reviewed as appropriate & no additional complaints - Constitutional Constitutional: Reports system reviewed and no additional complaints, except as docu, Denies fever(s) - Eyes Eyes: Reports system reviewed and no additional complaints, except as docu, Denies blurry vision - ENT Ears, Nose, Mouth, and Throat: Reports system reviewed and no additional complaints, except as docu, Denies sore throat - Cardiovascular Cardiovascular: Reports system reviewed and no additional complaints, except as docu, Denies chest pain - Respiratory Respiratory: Reports system reviewed and no additional complaints, except as docu, Denies chest congestion - Gastrointestinal Gastrointestingal: Reports: system reviewed and no additional complaints, except as docu. Denies: belching - Genitourinary Female Genitourinary: Reports system reviewed and no additional complaints, except as docu, Reports vaginal discharge, Reports vaginal odor - Musculoskeletal Musculoskeletal: Reports system reviewed and no additional complaints, except as docu, Denies joint pain - Integumentary/Breasts Skin/Breast: Reports system reviewed and no additional complaints, except as docu, Denies rash - Neurologic Neurologic: Reports system reviewed and no additional complaints, except as docu, Denies dizziness - Endocrine Endocrine: Reports system reviewed and no additional complaints, except as docu, Denies fatig
[2021-11-27 16:31] VITALS: BP 117/84; PULSE 90; RESP 18; TEMP 37; O2SAT 97; BMI 27.1
[2021-11-27 17:03] VITALS: BP 117/84; PULSE 90; RESP 18; TEMP 37
== END 2021-11-27 17:04 | disposition home or self-care (01) ==
PROVIDERS: Emergency Provider Nurse Practitioner Family; PCP Physician Assistant
DX: N89.8 Other specified noninflammatory disorders of vagina (principal); Z87.891 Personal history of nicotine dependence
CPT/HCPCS: 87210; 99203; G0463

== ENCOUNTER 2021-12-22 19:56 | Emergency (ER) | payer OTHER, SELFPAY ==
[2021-12-22 20:49] VITALS: BP 0/0; PULSE 0; RESP 0; TEMP -17.7; TEMP 0
== END 2021-12-22 20:50 | disposition left against medical advice (07) ==
LOC: UTC 19:59
PROVIDERS: Emergency Provider Nurse Practitioner Family; PCP Physician Assistant
DX: Z53.21 Procedure and treatment not carried out due to patient leaving prior to being seen by health care provider (principal)

== ENCOUNTER → 2022-01-03 16:00 | Outpatient (CLI) | payer OTHER, SELFPAY ==
[2022-01-03 17:50] LABS: Basophils # 0.1 K/mm3 (0-0.2); Basophils % 1.5 % (0.1-2.0); Eosinophils # 0.1 K/mm3 (0.0-0.4); Eosinophils % 1.5 % (0.1-12.0); Hemoglobin 13.7 g/dL (12.2-16.2); Lymphocytes # 2.2 K/mm3 (0.7-4.5); Lymphocytes % 32.9 % (10-50); Mean Corpuscular HGB Conc 32.7 g/dL (31.8-35.4); Mean Corpuscular Hemoglobin 31.3 pg (27.0-31.2); Mean Corpuscular Volume 95.7 fl (81-99); Mean Platelet Volume 8.5 fl (7.4-10.4); Monocytes # 0.4 K/mm3 (0.1-1.0); Monocytes % 6.5 % (1.7-9.3); Neutrophils # 3.8 K/mm3 (1.8-7.8); Neutrophils % 57.7 % (37.0-80.0); Platelet Count 298 K/mm3 (142-424); Red Blood Count 4.39 M/mm3 (4.20-5.40); White Blood Count 6.6 K/mm3 (4.8-10.8)
[2022-01-03 18:56] LABS: Alanine Aminotransferase 45 U/L (12-78); Albumin Level 4.7 g/dl (3.5-5.0); Albumin/Globulin Ratio 1.7 (1.1-1.8); Alkaline Phosphatase 64 U/L (38-126); Anion Gap 10.5 mEq/L (5-15); Aspartate Amino Transferase 35 U/L (14-36); Bilirubin,Total 0.4 mg/dl (0.2-1.3); Blood Urea Nitrogen 14 mg/dl (7-17); Calcium 9.4 mg/dl (8.4-10.2); Carbon Dioxide 31 mmol/L (22.0-30.0); Chloride 102 mmol/L (98-107); Chol/HDL Ratio 3.6 (1-3.5); Cholesterol 196 mg/dl (140-200); Estimated Glomerular Filt Rate 100 ml/min (>60); GFR (African American) 121 ML/MIN (>60); Globulin 2.7 g/dL (1.3-3.2); Glucose 77 mg/dl (74-100); HDL Cholesterol 55 mg/dl (40-60); Potassium 4.5 mmoL/L (3.5-5.1); Sodium 139 mmol/L (136-145); Total Protein,Serum 7.4 g/dl (6.3-8.2); Triglycerides 135 mg/dl (30-150); VLDL Cholesterol 27 mg/dL (0-40)
[2022-01-03 19:08] LABS: Direct LDL Cholesterol 117.48 mg/dL (100-129)
[2022-01-03 19:14] LABS: 25-OH Vitamin D, Total 44.8 ng/mL (30-100)
[2022-01-03 19:28] LABS: Thyroid Stimulating Hormone 1.06 uIU/mL (0.465-4.68)
== END ==
PROVIDERS: Visit Provider Physician Assistant
DX: E66.9 Obesity, unspecified (principal)
CPT/HCPCS: 80053; 80061; 82306; 84443; 85025

== ENCOUNTER → 2022-07-07 17:28 | Outpatient (CLI) | payer OTHER, SELFPAY ==
[2022-07-07 15:05] LABS: Amphetamine/Metha Screen,Urine Negative ng/ml (<1000); Barbiturates Screen,Urine Negative ng/ml (<200)
[2022-07-07 15:06] LABS: Benzodiazepines Screen,Urine Negative ng/ml (<200)
[2022-07-07 15:07] LABS: Cannabinoid Screen,Urine Positive ng/ml (<50); Cocaine Screen,Urine Negative ng/ml (<300)
[2022-07-07 15:08] LABS: Methadone Screen,Urine Negative ng/ml (<300); Phencyclidine Screen,Urine Negative ng/ml (<25)
[2022-07-07 15:09] LABS: Opiate Screen,Urine Negative ng/ml (<300)
== END ==
PROVIDERS: PCP Physician Assistant; Visit Provider Physician Assistant
DX: F41.9 Anxiety disorder, unspecified (principal)
CPT/HCPCS: 80305

== ENCOUNTER 2022-09-02 08:12 | Emergency (ER) | payer OTHER, SELFPAY ==
[2022-09-02 08:41] VITALS: BP 131/76; PULSE 76; RESP 18; TEMP 37.3; O2SAT 100; BMI 26.9
[2022-09-02 08:45] LABS: UTC Influenza A Antigen Positive (Negative)
[2022-09-02 08:46] LABS: UTC Influenza B Antigen Negative (Negative)
[2022-09-02 08:47] LABS: UTC Strep Screen (Rapid) Negative (Negative)
--- NOTE | 2022-09-02 08:47 | EXP.UTC ---
Discharge Plan Disposition Patient Disposition: Home, Self-Care Condition: Good Prescriptions Prescriptions: New oseltamivir [Tamiflu] 75 mg capsule 75 mg PO Q12H 5 Days Qty: 10 0RF No Action clonazepam 0.5 mg tablet 0.5 mg PO TID PRN (Reason: anxiety) Qty: 90 0RF Viibryd 20 mg tablet 20 mg PO DAILY Qty: 90 0RF Rx Instructions: must administer with a meal/food Referrals Follow up/Referrals: Jacqueline Isbell PA [Primary Care Provider] - See instructions Activity Restrictions/Add. Instructions Additional Instructions/Restrictions: Start Tamiflu today if you are going to take it. Discussed risk and possible benefits. Lots of rest Increase Fluids water, Gatorade, powerade, pedialyte,if /toddler/child Alternate Tylenol and / or ibuprofen as discussed for fever, aches, chills Follow up IMMEDIATELY with your family doctor for new or worsening Symptoms OR no noticeable improvement over the next 48-72 hours, 911 for difficulty or breathing You or your child area contagious until no fever, aches, chills for 24 hours with medication for symptoms Help Prevent the spread of influenza: ?Wash your hands often. Use soap and water. Wash your hands after you use the bathroom, change a child's diapers, or sneeze. Wash your hands before you prepare or eat food. Use gel hand cleanser that has 60% alcohol, when soap and water are not available. Do not touch your eyes, nose, or mouth unless you have washed your hands first. Cover your mouth when you sneeze or cough. Cough into a tissue or the bend of your arm. If you use a tissue, throw it away immediately and wash your hands. Clean shared items with a germ-killing machine cleaner. Clean table surfaces, doorknobs, and light switches. Do not share towels, silverware, and dishes with people who are sick. Wash bed sheets, towels, silverware, and dishes with soap and water. Wear a mask over your mouth and nose if you are sick. The face mask may help protect others from becoming infected with the flu. Wear the mask when in common areas of your home or if you seek care with a healthcare provider. Stay away from others if you are sick. Stay at home until 24 hours after your fever and symptoms are gone. Clinical Impressions Clinical Impression: Influenza Stand Alone Forms Stand Alone Forms: Work/School Release Instructions Patient Instructions: DI for Influenza -- Adult Discharge ED Provider: Nichelle Johnson [facility] HPI General Stated complaint: head congestion,cough,headache Mode of Arrival: Ambulatory Source of Information: Patient Limitations: No Limitations Time Seen by Provider: 09/02/22 08:54 Description of Symptoms (Recalled from Triage Doc. by RN): pt comes in with c/o body aches, nasal congestion, cough ongoing for 3 days HEENT Symptoms (Recalled from RN notes): Yes Resp Symptoms (Recalled from RN notes): Yes Skin Symptoms (Recalled from RN notes): No MS Symptoms (Recalled from RN notes): No Functional Status (Recalled from RN notes): n/a History of Present Illness Provider Complaint: Patient states that she started not feeling well about 3 days ago worse today States that she has been having body aches, chills, nasal congestion and cough States that this morning she was feeling worse so she came in Related Data Previous Rx's Medication Instructions Recorded clonazepam 0.5 mg tablet 0.5 mg PO TID PRN anxiety #90 tabs 07/07/22 vilazodone 20 mg tablet (Viibryd) 20 mg PO DAILY #90 tabs 07/07/22 oseltamivir 75 mg capsule (Tamiflu) 75 mg PO Q12H 5 days #10 caps 09/02/22 Allergies Allergy/AdvReac Type Severity Reaction Status Date / Time amoxicillin Allergy Verified 09/02/22 08:44 Worker's Comp Is this a Worker's Comp case?: No [facility] 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 (Updated 09/02/22 @ 08:48 by Nichelle
[2022-09-02 08:55] VITALS: BP 131/76; PULSE 76; RESP 18; TEMP 37.3
[2022-09-02 10:10] LABS: Adenovirus,PCR Not Detected (NotDetected); Bordetella Pertussis Not Detected (NotDetected); Chlamydophila Pneumoniae, PCR Not Detected (NotDetected); Coronavirus 19, PCR Not Detected (NotDetected); Coronavirus 229E Not Detected (NotDetected); Coronavirus NL63 Not Detected (NotDetected); Coronavirus OC43 Not Detected (NotDetected); Coronovirus HKU1,PCR Not Detected (NotDetected); Human Metapneumovirus Not Detected (NotDetected); Influenza A, PCR Not Detected (NotDetected); Influenza AH1, 2009 Not Detected (NotDetected); Influenza AH1, PCR Not Detected (NotDetected); Influenza B, PCR Not Detected (NotDetected); Mycoplasma Pneumoniae, PCR Not Detected (NotDetected); Parainfluenza 1, PCR Not Detected (NotDetected); Parainfluenza 2, PCR Not Detected (NotDetected); Parainfluenza 3, PCR Not Detected (NotDetected); Parainfluenza 4, PCR Not Detected (NotDetected); Respiratory Syncytial Virus Not Detected (NotDetected); Rhinovirus/Enterovirus Not Detected (NotDetected)
[2022-09-02 12:41] LABS: Influenza AH3,PCR Detected (NotDetected)
== END 2022-09-02 09:00 | disposition home or self-care (01) ==
PROVIDERS: Emergency Provider Nurse Practitioner; PCP Physician Assistant
DX: J10.1 Influenza due to other identified influenza virus with other respiratory manifestations (principal)
CPT/HCPCS: 87581; 87632; 87798; 87804; 87880; 99212; C9803; G0463; U0003; U0005

== ENCOUNTER 2022-10-18 11:08 | Emergency (ER) | payer OTHER, SELFPAY ==
[2022-10-18 11:48] VITALS: BP 122/69; PULSE 91; RESP 18; TEMP 36.6; O2SAT 96; BMI 27.4
--- NOTE | 2022-10-18 12:02 | EXP.UTC ---
Discharge Plan Disposition Patient Disposition: Home, Self-Care Condition: Good Prescriptions Prescriptions: New prednisone [prednisone] 20 mg tablet 20 mg PO BID Qty: 10 0RF No Action naproxen 500 mg tablet 500 mg PO BID Qty: 30 0RF prednisone 20 mg tablet 20 mg PO BID 5 Days Qty: 10 0RF Referrals Follow up/Referrals: Jacqueline Isbell PA [Primary Care Provider] - See instructions Clinical Impressions Clinical Impression: Low Back Pain Instructions Patient Instructions: DI for Low Back Pain [facility] General Stated complaint: RT lower back pain, leg pain Mode of Arrival: Ambulatory Source of Information: Patient Limitations: No Limitations Time Seen by Provider: 10/18/22 12:02 Description of Symptoms (Recalled from Triage Doc. by RN): pt comes in with back pain. pt was prescribed muscle relaxer but can not take care of kids while taking medcation,. HEENT Symptoms (Recalled from RN notes): No Resp Symptoms (Recalled from RN notes): No Skin Symptoms (Recalled from RN notes): No MS Symptoms (Recalled from RN notes): Yes Functional Status (Recalled from RN notes): n/a History of Present Illness Provider Complaint: 26 yr old female presents with c/o back pain. pt was prescribed muscle relaxer by pcp but can not take care of kids while taking medication, pt states she has pt scheduled Related Data Previous Rx's Medication Instructions Recorded naproxen 500 mg tablet 500 mg PO BID #30 tabs 10/12/22 prednisone 20 mg tablet 20 mg PO BID 5 days #10 tabs 10/12/22 prednisone 20 mg tablet 20 mg PO BID #10 tabs 10/18/22 Allergies Allergy/AdvReac Type Severity Reaction Status Date / Time amoxicillin Allergy Verified 10/18/22 11:50 Worker's Comp Is this a Worker's Comp case?: No [facility] Disclaimer: The information contained in this section may have been updated after the patient was seen, as this information can be updated by other users. 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) Smoking Status: Former smoker second hand exposure: Yes alcohol intake: current substance use type: denies use current occupational status: unemployed Travel in the last 8 weeks: None number of children: 3 ROS Obtained: Yes All systems reviewed & no additional complaints except as documented and Yes Systems reviewed as appropriate & no additional complaints except as documented Constitutional Constitutional: Reports system reviewed and no additional complaints, except as documented Eyes Eyes: Reports system reviewed and no additional complaints, except as documented ENT Ears, Nose, Mouth, and Throat: Reports system reviewed and no additional complaints, except as documented Cardiovascular Cardiovascular: Reports system reviewed and no additional complaints, except as documented and Reports as per HPI Respiratory Respiratory: Reports system reviewed and no additional complaints, except as documented Gastrointestinal Gastrointestingal: Reports system reviewed and no additional complaints, except as documented Genitourinary Female Genitourinary: Reports system reviewed and no additional complaints, except as documented Musculoskeletal Musculoskeletal: Reports system reviewed and no additional complaints, except as documented, Reports as per HPI and Reports back pain Integumentary/Breasts Skin/Breast: Reports system reviewed and no additional complaints, except as documented Neurologic Neurologic: Reports system reviewed and no additional complaints, except as documented Endocrine Endocrine: Reports system reviewed and no additional complaints, except as documented Physical Exam General General appearance: alert and in no apparent distress Head Head exam: atraumatic, normocephalic and normal inspecti
[2022-10-18 12:12] VITALS: BP 122/69; PULSE 90; RESP 18; TEMP 36.6
== END 2022-10-18 12:20 | disposition home or self-care (01) ==
PROVIDERS: Emergency Provider Nurse Practitioner Family; PCP Physician Assistant
DX: M54.50 Low back pain, unspecified (principal); Z79.899 Other long term (current) drug therapy; Z88.1 Allergy status to other antibiotic agents; Z87.891 Personal history of nicotine dependence; F41.9 Anxiety disorder, unspecified; F32.A Depression, unspecified; F31.9 Bipolar disorder, unspecified
CPT/HCPCS: 99212; G0463

== ENCOUNTER 2023-02-11 11:13 | Emergency (ER) | payer OTHER, SELFPAY ==
[2023-02-11 11:25] VITALS: BP 116/72; PULSE 70; RESP 20; TEMP 37; O2SAT 99; BMI 28.2
--- NOTE | 2023-02-11 11:27 | EXP.UTC ---
Discharge Plan Disposition Patient Disposition: Home, Self-Care Condition: Good Prescriptions Prescriptions: New ciprofloxacin HCl 0.3 % drops See Rx Instructions .ROUTE .COMPLEX Qty: 5 0RF Rx Instructions: put 1 drp in right eye every 2hr x2days; then 4 times/day x5days No Action Unisom (doxylamine) 25 mg tablet 12.5 mg PO HS PRN (Reason: nausea and vomiting) Qty: 30 0RF pyridoxine (vitamin B6) 25 mg tablet 25 mg PO TID lamotrigine [Lamictal] 25 mg tablet 25 mg PO DAILY Rx Instructions: 1 tab QHS X 2 weeks, then 1 tab BID X 2 weeks aripiprazole [Abilify] 5 mg tablet 5 mg PO QHS Referrals Follow up/Referrals: Jacqueline Isbell PA [Primary Care Provider] - See instructions Activity Restrictions/Add. Instructions Additional Instructions/Restrictions: Use the eye drops as directed. Strict hand washing in the house hold, because conjunctivitis is very contagious. Follow up with your regular doctor. GO TO THE ER FOR ANY WORSENING SYMPTOMS OR CONCERNS Take tylenol for pain or fever. Follow up with your regular doctor. 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 GO TO THE ER FOR ANY WORSENING SYMPTOMS Clinical Impressions Clinical Impression: Acute viral syndrome, Conjunctivitis of left eye Stand Alone Forms Stand Alone Forms: Work/School Release Instructions Patient Instructions: How to Instill Eye Drops, DI for Viral Syndrome Discharge ED Provider: Jb Adame [facility] [place] HPI General Stated complaint: right eye swollen shut, fever Time Seen by Provider: 02/11/23 11:27 History of Present Illness Provider Complaint: She states that for the past 2 days she has had a sore throat and ran a fever up to 101. Since this morning she has had right eye irritation and matting. She denies any eye injury or foreign body. Related Data Home Medications Medication Instructions Recorded Confirmed aripiprazole 5 mg tablet (Abilify) 5 mg PO QHS . 02/11/23 02/11/23 lamotrigine 25 mg tablet (Lamictal) 25 mg PO DAILY . 02/11/23 02/11/23 pyridoxine (vitamin B6) 25 mg 25 mg PO TID Supplement 02/11/23 02/11/23 tablet Previous Rx's Medication Instructions Recorded doxylamine succinate 25 mg tablet 12.5 mg PO HS PRN nausea and 01/27/23 (Unisom (doxylamine)) vomiting #30 tabs ciprofloxacin HCl 0.3 % eye drops See Rx Instructions ophthalmic 02/11/23 (eye) .COMPLEX #5 mL Allergies Allergy/AdvReac Type Severity Reaction Status Date / Time amoxicillin Allergy Ver[facility]11[facility]23 11[facility] Disclaimer: The information contained in this section may have been updated after the patient was seen, as this information can be updated by other users. 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 Anxiety Bipolar disorder Carpal tunnel syndrome Depression 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 Smoking Status: Former smoker second hand exposure: Yes alcohol intake: current substance use type: denies use current occupational status: unemployed Travel in the last 8 weeks: None number of children: 3 ROS Obtained: Yes All systems reviewed & no additional complaints except as documented Constitutional Constitutional: Denies chills and Denies fever(s) Eyes Eyes: Reports eye discharge ENT Ears, Nose, Mouth, and Throat: Denies dizziness, Denies otalgia and Denies sore throat Cardiovascular Cardiovascular: Denies chest pain Respiratory Respiratory: Denies shortness of breath, Denies chest congestion, Denies cough, Denies stridor and Denies wheezing Gastrointestinal Gastrointestingal: Denies nausea or vomiting Musculoskeletal Musculoskeletal: Reports system reviewed and no additional complaints, except as documented and Denies arthralgias Integumentary/Breasts Skin/Breast: Denies rash Neurologic Neurologic: Denies dizziness and Denies paresthesias Allergic/Immunologic Allergic/Imm
[2023-02-11 12:21] LABS: Apearance,Urine Clear (Clear); Bilirubin,Urine Negative (Negative); Blood, Urine Negative (Negative); Color,Urine Yellow (Yellow); Glucose,Urine (UA) Negative (Negative); Ketones,Urine Negative (Negative); PH,Urine 8.5 (5.0-8.5); Protein,Urine Trace (Negative); Specific Gravity, Urine 1.015 (1.005-1.030); UTC Leukocyte Esterase,Urine Negative (Negative); UTC Nitrate,Urine Negative (Negative); Urobilinogen,Urine 0.2 EU/dl (0.2)
[2023-02-11 12:39] VITALS: BP 116/72; PULSE 70; RESP 20; TEMP 37; O2SAT 99
[2023-02-11 12:42] LABS: Adenovirus,PCR Not Detected (NotDetected); Bordetella Pertussis Not Detected (NotDetected); Chlamydophila Pneumoniae, PCR Not Detected (NotDetected); Coronavirus 19, PCR Not Detected (NotDetected); Coronavirus 229E Not Detected (NotDetected); Coronavirus NL63 Not Detected (NotDetected); Coronavirus OC43 Not Detected (NotDetected); Coronovirus HKU1,PCR Not Detected (NotDetected); Human Metapneumovirus Not Detected (NotDetected); Influenza A, PCR Not Detected (NotDetected); Influenza AH1, 2009 Not Detected (NotDetected); Influenza AH1, PCR Not Detected (NotDetected); Influenza AH3,PCR Not Detected (NotDetected); Influenza B, PCR Not Detected (NotDetected); Mycoplasma Pneumoniae, PCR Not Detected (NotDetected); Parainfluenza 1, PCR Not Detected (NotDetected); Parainfluenza 2, PCR Not Detected (NotDetected); Parainfluenza 3, PCR Not Detected (NotDetected); Parainfluenza 4, PCR Not Detected (NotDetected); Respiratory Syncytial Virus Not Detected (NotDetected); Rhinovirus/Enterovirus Not Detected (NotDetected)
== END 2023-02-11 12:39 | disposition home or self-care (01) ==
PROVIDERS: Emergency Provider Nurse Practitioner Family; PCP Physician Assistant
DX: H10.31 Unspecified acute conjunctivitis, right eye (principal); B34.9 Viral infection, unspecified; R50.9 Fever, unspecified; Z87.891 Personal history of nicotine dependence
CPT/HCPCS: 81003; 87581; 87632; 87798; 99212; 99214; C9803; G0463; U0003; U0005

== ENCOUNTER 2023-02-18 14:51 | Emergency (ER) | payer OTHER, SELFPAY ==
--- NOTE | 2023-02-18 15:13 | HMH.EDGENADL ---
Discharge Plan Disposition Patient Disposition: Home, Self-Care Prescriptions Prescriptions: No Action Unisom (doxylamine) 25 mg tablet 12.5 mg PO HS PRN (Reason: nausea and vomiting) Qty: 30 0RF promethazine 12.5 mg tablet 12.5 mg PO Q6H PRN (Reason: nausea and vomiting) Qty: 20 1RF pyridoxine (vitamin B6) 25 mg tablet 25 mg PO TID lamotrigine [Lamictal] 25 mg tablet 25 mg PO DAILY Rx Instructions: 1 tab QHS X 2 weeks, then 1 tab BID X 2 weeks aripiprazole [Abilify] 5 mg tablet 5 mg PO QHS ciprofloxacin HCl 0.3 % drops See Rx Instructions .ROUTE .COMPLEX Qty: 5 0RF Rx Instructions: put 1 drp in right eye every 2hr x2days; then 4 times/day x5days Referrals Follow up/Referrals: Jacqueline Isbell PA [Primary Care Provider] - See instructions Activity Restrictions/Add. 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 Clinical Impressions Clinical Impression: Threatened miscarriage Discharge ED Provider: Prasanth Owen General Adult HPI General Stated complaint: 6 or 7 weeks ,abd pain, bleeding Time Seen by Provider: 02/18/23 15:14 History of Present Illness HPI narrative: Patient is a 27-year-old female G6, with a history of medical and spontaneous miscarriage presents today 6 weeks gestational age with this by LMP with some spotting. She states that she knows her blood type and that she has been positive has never had to have RhoGAM in the past. She did have a threatened in the past that ended a normal . She denies any significant cramping or abdominal pain or loss of fluid associated with this just some small spotting. Pain is very mild. Related Data Home Medications Medication Instructions Recorded Confirmed aripiprazole 5 mg tablet (Abilify) 5 mg PO QHS . 02/11/23 02/11/23 lamotrigine 25 mg tablet (Lamictal) 25 mg PO DAILY . 02/11/23 02/11/23 pyridoxine (vitamin B6) 25 mg 25 mg PO TID Supplement 02/11/23 02/11/23 tablet Previous Rx's Medication Instructions Recorded doxylamine succinate 25 mg tablet 12.5 mg PO HS PRN nausea and 01/27/23 (Unisom (doxylamine)) vomiting #30 tabs ciprofloxacin HCl 0.3 % eye drops See Rx Instructions ophthalmic 02/11/23 (eye) .COMPLEX #5 mL promethazine 12.5 mg tablet 12.5 mg PO Q6H PRN nausea and 02/13/23 vomiting #20 tabs Allergies Allergy/AdvReac Type Severity Reaction Status Date / Time amoxicillin Allergy Verified 02/11/23 11:45 [facility] Disclaimer: The information contained in this section may have been updated after the patient was seen, as this information can be updated by other users. 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 Anxiety Bipolar disorder Carpal tunnel syndrome Depression 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 Smoking Status: Former smoker second hand exposure: Yes alcohol intake: current substance use type: denies use current occupational status: unemployed Travel in the last 8 weeks: None number of children: 3 ROS Obtained: Yes All systems reviewed & no additional complaints except as documented Physical Exam General General appearance: alert and in no apparent distress Respiratory Respiratory exam: Absent respiratory distress Cardiovascular Cardiovascular exam: Present regular rate; Absent tachycardia Abdominal Exam Abdominal exam: Present soft; Absent distention or tenderness Neurological Exam Neurological exam: Present alert and oriented X3 Medical Decision Making Wili Inquiry Pt receiving controlled substance: No Medical Decision Narrative: Patient presents with spotting in first trimester . I did a limited bedside ultrasound which d
[2023-02-18 15:19] VITALS: BP 107/71; PULSE 84; RESP 16; TEMP 36.9; O2SAT 99; BMI 27.4
[2023-02-18 15:29] VITALS: BP 107/71; PULSE 84; RESP 16; TEMP 36.9
== END 2023-02-18 15:35 | disposition home or self-care (01) ==
PROVIDERS: Emergency Provider Emergency Medicine; PCP Physician Assistant
DX: O20.0 Threatened abortion (principal); Z3A.01 Less than 8 weeks gestation of pregnancy; Z87.891 Personal history of nicotine dependence
CPT/HCPCS: 76815; 99283; 99284

== ENCOUNTER → 2023-02-20 12:14 | Outpatient (CLI) | payer OTHER, SELFPAY ==
[2023-02-20 12:51] LABS: Basophils % 0.3 % (0.1-2.0); Eosinophils # 0.1 K/mm3 (0.0-0.4); Eosinophils % 0.4 % (0.1-12.0); Hematocrit 41.3 % (37.0-47.0); Hemoglobin 13.7 g/dL (12.2-16.2); Lymphocytes # 1.6 K/mm3 (0.7-4.5); Lymphocytes % 11.4 % (10-50); Mean Corpuscular HGB Conc 33.3 g/dL (31.8-35.4); Mean Corpuscular Hemoglobin 30.7 pg (27.0-31.2); Mean Corpuscular Volume 92.4 fl (81-99); Mean Platelet Volume 8.1 fl (7.4-10.4); Monocytes # 0.7 K/mm3 (0.1-1.0); Monocytes % 4.9 % (1.7-9.3); Neutrophils # 11.6 K/mm3 (1.8-7.8); Platelet Count 299 K/mm3 (142-424); Red Blood Count 4.47 M/mm3 (4.20-5.40); Red Cell Distribution Width 13.3 % (11.5-17.5)
[2023-02-20 14:05] LABS: HCG,Quantitative 19724 mIU/ml (0-5.42)
== END ==
PROVIDERS: PCP Physician Assistant; Visit Provider Obstetrics & Gynecology
DX: Z34.90 Encounter for supervision of normal pregnancy, unspecified, unspecified trimester (principal)
CPT/HCPCS: 36415; 84702; 85025; 86900; 86901

== ENCOUNTER 2023-03-26 10:50 | Emergency (ER) | payer OTHER, SELFPAY ==
[2023-03-26 10:51] VITALS: BP 109/42; PULSE 68; RESP 18; TEMP 36.7; O2SAT 98; BMI 27.5
--- NOTE | 2023-03-26 11:09 | EXP.UTC ---
Discharge Plan Disposition Patient Disposition: Home, Self-Care Condition: Good Prescriptions Prescriptions: New nitrofurantoin monohyd/m-cryst [Macrobid] 100 mg Capsule 100 mg PO BID Qty: 10 0RF Rx Instructions: must administer with a meal/food phenazopyridine [Pyridium] 200 mg tablet 200 mg PO Q8H 2 Days Qty: 6 0RF fluconazole [Diflucan] 150 mg tablet 150 mg PO ONCE Qty: 1 2RF No Action Caplyta 42 mg capsule 42 mg PO DAILY Referrals Follow up/Referrals: Jacqueline Isbell PA [Primary Care Provider] - See instructions Activity Restrictions/Add. Instructions Additional Instructions/Restrictions: Drink plenty of fluids. Take tylenol or ibuprofen for pain or fever. Take the medications as directed. Follow up with your regular doctor. GO TO THE ER FOR ANY WORSENING SYMPTOMS The pyridium will make your urine turn orange, this is an expected side effect. It will stain your clothes if it comes into contact with them. We will culture the urine. That will tell what bacteria is causing your infection and which antibiotics will treat it best. Sometimes the first antibiotic we prescribe turns out to not work against different bacteria. So, make sure you follow up within 3 days if you are not getting better. Clinical Impressions Clinical Impression: UTI (urinary tract infection), Yeast infection Instructions Patient Instructions: Urine Culture, DI for Vaginal Yeast Infection, DI for Urinary Tract Infection (UTI), Fluconazole Discharge ED Provider: Jb Adame [facility] General Stated complaint: Possible UTI and yeast infection Mode of Arrival: Ambulatory Source of Information: Patient Limitations: No Limitations Time Seen by Provider: 03/26/23 11:09 Description of Symptoms (Recalled from Triage Doc. by RN): uti and or yeast infection HEENT Symptoms (Recalled from RN notes): No Resp Symptoms (Recalled from RN notes): No Skin Symptoms (Recalled from RN notes): No MS Symptoms (Recalled from RN notes): No Functional Status (Recalled from RN notes): n/a History of Present Illness Provider Complaint: She states that for the past 2 days she has had dysuria, urinary frequency and she has felt bad. Related Data Home Medications Medication Instructions Recorded Confirmed lumateperone 42 mg capsule 42 mg PO DAILY Depression 03/26/23 03/26/23 (Caplyta) Previous Rx's Medication Instructions Recorded fluconazole 150 mg tablet 150 mg PO ONCE #1 tab 03/26/23 (Diflucan) nitrofurantoin 100 mg PO BID #10 caps 03/26/23 monohydrate/macrocrystals 100 mg capsule (Macrobid) phenazopyridine 200 mg tablet 200 mg PO Q8H 2 days #6 tabs 03/26/23 (Pyridium) Allergies Allergy/AdvReac Type Severity Reaction Status Date / Time amoxicillin Allergy Verified 03/26/23 11:07 Worker's Comp Is this a Worker's Comp case?: No [facility] Disclaimer: The information contained in this section may have been updated after the patient was seen, as this information can be updated by other users. 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 Anxiety Bipolar disorder Carpal tunnel syndrome Depression Spontaneous miscarriage 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 Smoking Status: Former smoker second hand exposure: Yes alcohol intake: current substance use type: denies use current occupational status: unemployed Travel in the last 8 weeks: None number of children: 3 ROS Obtained: Yes All systems reviewed & no additional complaints except as documented Constitutional Constitutional: Reports system reviewed and no additional complaints, except as documented, Denies chills and Denies fever(s) Eyes Eyes: Denies eye discharge ENT Ears, Nose, Mouth, and Throat: Denies dysphagia, Denies sore throat and Denies throat swelling Cardiovascular Cardiovascular: Denies chest pain and Denies dyspnea Respiratory Respirato
[2023-03-26 11:14] LABS: Apearance,Urine Clear (Clear); Bilirubin,Urine Negative (Negative); Blood, Urine Negative (Negative); Color,Urine Dark Yellow (Yellow); Glucose,Urine (UA) Negative (Negative); Ketones,Urine Negative (Negative); Protein,Urine Negative (Negative); Specific Gravity, Urine 1.025 (1.005-1.030); UTC Leukocyte Esterase,Urine Trace (Negative); UTC Nitrate,Urine Negative (Negative); Urobilinogen,Urine 1 EU/dl (0.2)
[2023-03-26 12:14] VITALS: BP 109/42; PULSE 68; RESP 18; TEMP 36.7; O2SAT 98
== END 2023-03-26 12:07 | disposition home or self-care (01) ==
PROVIDERS: Emergency Provider Nurse Practitioner Family; PCP Physician Assistant
DX: N39.0 Urinary tract infection, site not specified (principal); B37.31 Acute candidiasis of vulva and vagina; F31.31 Bipolar disorder, current episode depressed, mild; F41.9 Anxiety disorder, unspecified; Z87.891 Personal history of nicotine dependence
CPT/HCPCS: 81003; 87086; 99212; 99214; G0463

== ENCOUNTER 2023-10-22 13:28 | Emergency (ER) | payer OTHER, SELFPAY ==
[2023-10-22 14:00] VITALS: BP 125/73; PULSE 86; RESP 20; TEMP 37.1; O2SAT 97; BMI 24.5
--- NOTE | 2023-10-22 14:06 | EXP.UTC ---
Discharge Plan Disposition Patient Disposition: Home, Self-Care Condition: Good Prescriptions Prescriptions: New azithromycin [Zithromax] 250 mg tablet 250 mg PO UD DOSE PK Qty: 6 0RF Rx Instructions: Take two (2) tablets today, then one (1) tablet days #2 thru #5 benzonatate [benzonatate] 100 mg capsule 100 mg PO TIDP PRN (Reason: Cough) Qty: 30 0RF methylprednisolone 4 mg Tablets,Dose Pack 4 mg PO DIRECTED Qty: 21 0RF guaifenesin [Mucinex] 600 mg tablet extended release 12hr 600 - 1,200 mg PO BIDP PRN (Reason: Congestion) Qty: 30 0RF No Action dextroamphetamine-amphetamine [Adderall XR] 10 mg capsule,extended release 24hr 10 mg PO DAILY Patient Comments: TAKE 1 CAPSULE BY MOUTH ONCE DAILY Caplyta 42 mg capsule 42 mg PO DAILY Patient Comments: TAKE ONE CAPSULE BY MOUTH EVERY DAY FOR depression Referrals Follow up/Referrals: Jacqueline Isbell PA [Primary Care Provider] - See instructions Activity Restrictions/Add. Instructions Additional Instructions/Restrictions: Drink plenty of fluids. Take tylenol or ibuprofen for pain or fever. Take the medications as directed. Follow up with your regular doctor. GO TO THE ER FOR ANY WORSENING SYMPTOMS Clinical Impressions Clinical Impression: Acute bronchitis Instructions Patient Instructions: Acute Bronchitis, DI for Acute Bronchitis Discharge ED Provider: Jb Adame [facility] [place] HPI General Stated complaint: sore throat, cough Time Seen by Provider: 10/22/23 14:05 History of Present Illness Provider Complaint: She states that for the past 2 weeks she has had worsening chest congestion, productive cough, and malaise. She denies fever/chills/body aches. Related Data Home Medications Medication Instructions Recorded Confirmed dextroamphetamine-amphetamine ER 10 mg PO DAILY 10/22/23 10/22/23 10 mg 24hr capsule,extend release (Adderall XR) lumateperone 42 mg capsule 42 mg PO DAILY 10/22/23 10/22/23 (Caplyta) Previous Rx's Medication Instructions Recorded azithromycin 250 mg tablet 250 mg PO UD DOSE PK #6 tabs 10/22/23 (Zithromax) benzonatate 100 mg capsule 100 mg PO TIDP PRN Cough #30 caps 10/22/23 guaifenesin 600 mg tablet, 600 - 1,200 mg PO BIDP PRN 10/22/23 extended release 12 hr (Mucinex) Congestion #30 tabs methylprednisolone 4 mg tablets in 4 mg PO DIRECTED #21 tabs 10/22/23 a dose pack Allergies Allergy/AdvReac Type Severity Reaction Status Date / Time amoxicillin Allergy Verified 09/11/23 09:46 [facility] Disclaimer: The information contained in this section may have been updated after the patient was seen, as this information can be updated by other users. 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 Anxiety Attention Deficit Hyperactivity Disorder (ADHD) Bipolar disorder Carpal tunnel syndrome Depression Spontaneous miscarriage 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 Smoking Status: Former smoker tobacco type: e-cigarettes second hand exposure: Yes alcohol intake: current substance use type: denies use current occupational status: unemployed Travel in the last 8 weeks: None number of children: 3 ROS Obtained: Yes All systems reviewed & no additional complaints except as documented Constitutional Constitutional: Reports poor appetite Eyes Eyes: Reports system reviewed and no additional complaints, except as documented ENT Ears, Nose, Mouth, and Throat: Reports as per HPI Cardiovascular Cardiovascular: Reports system reviewed and no additional complaints, except as documented and Denies chest pain Respiratory Respiratory: Denies shortness of breath, Reports chest congestion, Reports cough, Denies stridor and Denies wheezing Gastrointestinal Gastrointestingal: Reports system reviewed and no additional complaints, except as documented; Denies abdominal pain, diarrhea or vomiti
[2023-10-22 14:47] VITALS: BP 125/73; PULSE 86; RESP 20; TEMP 37.1; O2SAT 97
== END 2023-10-22 14:52 | disposition home or self-care (01) ==
PROVIDERS: Emergency Provider Nurse Practitioner Family; PCP Physician Assistant
DX: J20.9 Acute bronchitis, unspecified (principal); R05.8 Other specified cough; R07.0 Pain in throat; R09.89 Other specified symptoms and signs involving the circulatory and respiratory systems; R53.81 Other malaise; Z87.891 Personal history of nicotine dependence
CPT/HCPCS: 99212; 99214; G0463

== ENCOUNTER 2023-11-10 10:00 | Outpatient (CLI) | payer OTHER, SELFPAY ==
[2023-11-10 13:31] LABS: Amphetamine/Metha Screen,Urine Positive ng/ml (<1000); Barbiturates Screen,Urine Negative ng/ml (<200); Benzodiazepines Screen,Urine Negative ng/ml (<200); Cannabinoid Screen,Urine Positive ng/ml (<50); Cocaine Screen,Urine Negative ng/ml (<300); Methadone Screen,Urine Negative ng/ml (<300); Opiate Screen,Urine Negative ng/ml (<300); Phencyclidine Screen,Urine Negative ng/ml (<25)
== END 2023-11-10 23:59 ==
LOC: LAB.DROPOF 11-11 10:01
PROVIDERS: PCP Physician Assistant; Visit Provider Physician Assistant
DX: F90.9 Attention-deficit hyperactivity disorder, unspecified type (principal); Z79.899 Other long term (current) drug therapy
CPT/HCPCS: 80307

== ENCOUNTER 2023-11-30 12:17 | Outpatient (CLI) | payer OTHER, SELFPAY ==
[2023-11-30 13:45] LABS: Amphetamine/Metha Screen,Urine Positive ng/ml (<1000)
[2023-11-30 13:46] LABS: Barbiturates Screen,Urine Negative ng/ml (<200); Benzodiazepines Screen,Urine Negative ng/ml (<200)
[2023-11-30 13:47] LABS: Cannabinoid Screen,Urine Positive ng/ml (<50)
[2023-11-30 13:48] LABS: Cocaine Screen,Urine Negative ng/ml (<300); Methadone Screen,Urine Negative ng/ml (<300)
[2023-11-30 13:49] LABS: Opiate Screen,Urine Negative ng/ml (<300); Phencyclidine Screen,Urine Negative ng/ml (<25)
== END 2023-11-30 23:59 ==
LOC: LAB.DROPOF 12:17
PROVIDERS: PCP Physician Assistant; Visit Provider Physician Assistant
DX: Z79.899 Other long term (current) drug therapy (principal); F90.9 Attention-deficit hyperactivity disorder, unspecified type
CPT/HCPCS: 80307

== ENCOUNTER 2023-12-11 14:00 | Outpatient (CLI) | payer OTHER, SELFPAY ==
[2023-12-11 14:54] LABS: HCG,Quantitative 1182 mIU/ml (0-5.42)
[2023-12-12 09:08] LABS: Progesterone 8.6 ng/mL (.)
== END 2023-12-11 23:59 ==
PROVIDERS: PCP Physician Assistant; Visit Provider Obstetrics & Gynecology
DX: Z32.00 Encounter for pregnancy test, result unknown (principal)
CPT/HCPCS: 36415; 84144; 84702

== ENCOUNTER 2023-12-29 16:41 | Outpatient (CLI) | payer OTHER, SELFPAY | END 2023-12-29 23:59 | LOC: LAB.DROPOF 16:42 | PROVIDERS: PCP Obstetrics & Gynecology; Visit Provider Obstetrics & Gynecology | DX: O26.891 Other specified pregnancy related conditions, first trimester (principal); Z3A.01 Less than 8 weeks gestation of pregnancy | CPT/HCPCS: 87086 ==

== ENCOUNTER 2024-01-08 13:11 | Outpatient (CLI) | payer OTHER, SELFPAY ==
[2024-01-08 13:35] LABS: Basophils # 0.1 K/mm3 (0-0.2); Basophils % 0.8 % (0.1-2.0); Eosinophils # 0.1 K/mm3 (0.0-0.4); Eosinophils % 1.3 % (0.1-12.0); Hematocrit 41.6 % (37.0-47.0); Hemoglobin 13.6 g/dL (12.2-16.2); Lymphocytes # 1.7 K/mm3 (0.7-4.5); Lymphocytes % 22.6 % (10-50); Mean Corpuscular HGB Conc 32.7 g/dL (31.8-35.4); Mean Corpuscular Hemoglobin 32.5 pg (27.0-31.2); Mean Corpuscular Volume 99.5 fl (81-99); Mean Platelet Volume 7.7 fl (7.4-10.4); Monocytes # 0.3 K/mm3 (0.1-1.0); Monocytes % 4.4 % (1.7-9.3); Neutrophils # 5.4 K/mm3 (1.8-7.8); Neutrophils % 70.9 % (37.0-80.0); Platelet Count 304 K/mm3 (142-424); Red Blood Count 4.18 M/mm3 (4.20-5.40); Red Cell Distribution Width 12.6 % (11.5-17.5); White Blood Count 7.6 K/mm3 (4.8-10.8)
[2024-01-09 05:29] LABS: HIV Screen 4th Generation wRfx Non Reactive (Non Reactive); Rubella Antibodies, IgG 5.62 index (Immune >0.99)
[2024-01-09 12:43] LABS: Rapid Plasma Reagin Ab Titer Non Reactive titer (NonRea<1:1)
[2024-01-10 10:20] LABS: Hepatitis B Surface Antigen Negative
[2024-01-10 10:21] LABS: Hepatitis C Antibody Non Reactive
== END 2024-01-08 23:59 ==
LOC: LAB 13:11
PROVIDERS: PCP Physician Assistant; Visit Provider Obstetrics & Gynecology
DX: O26.891 Other specified pregnancy related conditions, first trimester (principal); Z3A.08 8 weeks gestation of pregnancy
CPT/HCPCS: 36415; 85025; 86593; 86703; 86762; 86850; 87340; 87380; G0432

== ENCOUNTER 2024-05-17 11:24 | Emergency (ER) | payer OTHER, SELFPAY ==
[2024-05-17 11:26] VITALS: BP 122/66; PULSE 91; RESP 18; TEMP 36.7; O2SAT 99; BMI 27.4
[2024-05-17 12:00] VITALS: BP 121/78; PULSE 93; O2SAT 98
--- NOTE | 2024-05-17 12:15 | ED_ITS ---
Discharge Plan Disposition Patient Disposition: Home, Self-Care Condition: Good Chief Complaint: Upper Respiratory Infection Prescriptions Prescriptions: No Action fluoxetine 40 mg capsule 40 mg PO DAILY Qty: 30 11RF propranolol 10 mg tablet 10 mg PO DAILY Qty: 30 2RF zinc acetate 50 mg (zinc) capsule 50 mg PO DAILY Qty: 30 2RF progesterone micronized [Prometrium] 200 mg capsule 200 mg vaginal HS Qty: 30 2RF Classic 28 mg iron- 800 mcg tablet 1 tab PO DAILY Qty: 30 8RF Caplyta 42 mg capsule 42 mg PO DAILY Qty: 30 0RF yzftpazikx-xuyokexsqgznl-vvuv [Fioricet] 50-300-40 mg capsule 1 cap PO QODP PRN (Reason: headache) Qty: 20 0RF magnesium oxide 400 mg (241.3 mg magnesium) tablet See Rx Instructions .ROUTE .COMPLEX Qty: 30 2RF Dose Instruction: TAKE ONE TABLET BY MOUTH EVERY DAY Rx Instructions: TAKE ONE TABLET BY MOUTH EVERY DAY terconazole 0.8 % cream 1 appful vaginal HS 3 Days Qty: 20 0RF azithromycin 500 mg tablet 1,000 mg PO ONCE Qty: 2 0RF promethazine 25 mg tablet 25 mg PO TID PRN (Reason: nausea and vomiting) Qty: 30 1RF Referrals Follow up/Referrals: Jacqueline Isbell PA [Primary Care Provider] - See instructions Activity Restrictions/Add. Instructions Additional Instructions/Restrictions: You have been evaluated in the ED for your complaints. You may follow-up with your PCP in the next 3 to 5 days. Please return to ED for any new or worsening symptoms. Please take Tylenol as needed for your symptoms. You may take up to 1000 mg of Tylenol every 5-6 hours. Clinical Impressions Clinical Impression: COVID Discharge ED Provider: Lucho Shelton General Adult HPI General Chief complaint: Upper Respiratory Infection Stated complaint: body aches chills vomiting Time Seen by Provider: 05/17/24 12:14 Mode of Arrival: Ambulatory Source of Information: Patient Limitations: No Limitations Description of Symptoms (Recalled from ER Triage Doc. by RN): wants to be checked for covid. 27 weeks History of Present Illness HPI narrative: 28-year-old female with past medical history significant for ADHD, PTSD, bipolar disorder, migraines, depression, reports 27 weeks gestation, presents today for evaluation concerning nausea and vomiting onset this morning. She also reports generalized bodyaches and mild coughing. States that she was recently around a contact to tested positive for COVID. Her home COVID swab done yesterday was negative. She denies any chest pain, fevers, chills, shortness of breath, abdominal pain, dysuria, hematuria or any other associated symptoms. Related Data Previous Rx's Medication Instructions Recorded progesterone micronized 200 mg 200 mg vaginal HS #30 caps 12/12/23 capsule (Prometrium) vits no.126-ferrous fum 1 tab PO DAILY #30 tabs 12/13/23 28 mg iron-folic acid 800 mcg tablet (Classic ) zinc acetate 50 mg (zinc) capsule 50 mg PO DAILY #30 caps 01/05/24 lumateperone 42 mg capsule 42 mg PO DAILY #30 caps 01/08/24 (Caplyta) hebbrnxzmn-sbrspksclrbvp-occobehf 1 cap PO QODP PRN headache #20 caps 02/15/24 50 mg-300 mg-40 mg capsule (Fioricet) fluoxetine 40 mg capsule 40 mg PO DAILY #30 caps 02/29/24 propranolol 10 mg tablet 10 mg PO DAILY #30 tabs 02/29/24 magnesium oxide 400 mg (241.3 mg See Rx Instructions .Route 04/17/24 magnesium) tablet .COMPLEX #30 tabs azithromycin 500 mg tablet 1,000 mg (2 x 500 mg) PO ONCE #2 04/29/24 tabs terconazole 0.8 % vaginal cream 1 appful vaginal HS 3 days #20 04/29/24 grams promethazine 25 mg tablet 25 mg PO TID PRN nausea and 05/16/24 vomiting #30 tabs Allergies Allergy/AdvReac Type Severity Reaction Status Date / Time amoxicillin Allergy Verified 04/25/24 10:57 viloxazine [From [facility]] AdvReac Intermediate Nausea Verified 04/25/24 10:57 [facility] Disclaimer: The information contained in this section may have been updated after the patient was seen, as this information can be updated by other users. 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 (Updated 05/17/24 @ 13:20 by Lucho Shelton DO) Vulvar pruritus Vaginal discharge during Screening for genetic disease carrier status Anxiety during History of kidney stones Attention Deficit Hyperactivity Disorder (ADHD) Spontaneous miscarriage History of delivery Bipolar disorder Depression Anxiety Carpal tunnel syndrome Family History Other FHx: mental illness Hypertension Stroke 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 Smoking Status: Never smoker second hand exposure: Yes alcohol intake: current alcohol intake frequency: a few times a month substance use type: denies use current occupational status: unemployed Travel in the last 8 weeks: None number of children: 3 ROS Obtained: Yes All systems reviewed & no additional complaints except as documented Physical Exam General General appearance: alert and in no apparent distress Head Head exam: atraumatic and normocephalic Eye Eye exam: Present normal appearance, PERRL and EOMI ENT ENT exam: Present normal oropharynx and mucous membranes moist Neck Neck exam: Present full ROM; Absent meningismus Respiratory Respiratory exam: Absent respiratory distress, wheezes, stridor or accessory muscle use Cardiovascular Cardiovascular exam: Present normal rhythm Abdominal Exam Abdominal exam: Present soft; Absent distention, tenderness, guarding, rebound or rigidity Neurological Exam Neurological exam: Present alert, oriented X3 and CN II-XII intact; Absent motor sensory deficit Psychiatric Psychiatric exam: Present normal affect and normal mood Skin Skin exam: Present warm and dry Medical Decision Making Medical Records Medical records reviewed: Yes I reviewed the patient's medical records. Wili Inquiry Pt receiving controlled substance: No Wili was queried for this patient: No Vital Signs: 05/17/24 11:26 05/17/24 12:00 Temperature 98.1 F Temperature Source Oral Pulse Rate 93 H Pulse Rate [Right] 91 H Respiratory Rate 18 Blood Pressure 121/78 Blood Pressure [Right Arm] 122/66 Blood Pressure Mean [Right Arm] 84 02 Sat by Pulse Oximetry 99 98 Oxygen Delivery Method Room Air Lab Data Lab Results 05/17/24 11:30: Urine Color Yellow, Urine Appearance Clear, Urine pH 8.5, Ur Specific [place] 1.015, Urine Protein Negative, Urine Glucose (UA) Negative, Urine Ketones Negative, Urine Blood Negative, Urine Nitrate Negative, Urine Bilirubin Negative, Urine Urobilinogen 0.2, Ur Leukocyte Esterase Negative, Urine RBC None, Urine WBC None, Ur Squamous Epith Cells 10-20, Amorphous Sediment 2+, Urine Bacteria 1+ 05/17/24 11:35: SARS-CoV-2 (PCR) Detected A, Influenza A Untype (PCR) Not detected, Influenza Type B (PCR) Not detected 05/17/24 12:55: WBC 6.6, RBC 3.63 L, Hgb 11.7 L, Hct 34.7 L, MCV 95.6, MCH 32.1 H, MCHC 33.6, RDW 13.4, Plt Count 278, MPV 8.2, Neut % (Auto) 87.8 H, Lymph % (Auto) 6.2 L, [place] % (Auto) 4.8, Eos % (Auto) 1.0, Baso % (Auto) 0.2, Neut # (Auto) 5.8, Lymph # (Auto) 0.4 L, [place] # (Auto) 0.3, Eos # (Auto) 0.1, Baso # (Auto) 0.0, Sodium 135 L, Potassium 4.1, Chloride 106, Carbon Dioxide 26, Anion Gap 7.1, BUN 3 L, Creatinine 0.50 L, Estimated Creat Clear 202, Estimated GFR 146, Est GFR ( Amer) 177, Glucose 84, Calcium 8.7, Total Bilirubin 0.4, AST 23, ALT 18, Alkaline Phosphatase 89, Total Protein 6.9, Albumin 3.7, Globulin 3.2, Albumin/Globulin Ratio 1.2 05/17/24 12:55 05/17/24 12:55 Orders (Tests/Meds): ED MEDICATIONS Discontinued Medications Generic Name Dose Route Start Last Admin Trade Name Freq PRN Reason Stop Dose Admin Ondansetron HCl 4 mg 05/17/24 12:21 05/17/24 12:26 Ondansetron 4mg Odt SL 05/17/24 12:22 4 mg ONCE ONE Administration ORDERS Category Date Time Status POCUS Point of Care (ER Only) Stat Exams 05/17/24 12:21 Ordered CBC w/Auto Diff [Complete Blood Count Auto Diff] Stat Lab 05/17/24 12:55 Results CMP [Comprehensive Metabolic Panel] Stat Lab 05/17/24 12:55 Completed Rapid PCR Covid and Flu A/B Stat Lab 05/17/24 11:35 Completed UA [Urinalysis and Microscopic] Stat Lab 05/17/24 11:30 Completed Medical Decision Narrative: 28-year-old female with past medical history significant for ADHD, PTSD, bipolar disorder, migraines, depression, reports 27 weeks gestation, presents today for evaluation concerning nausea and vomiting onset this morning. She also reports generalized bodyaches and mild coughing. States that she was recently around a contact to tested positive for COVID. Her home COVID swab done yesterday was negative. On assessment, she was hemodynamically stable and in no acute distress. Afebrile. Her chest was clear to auscultation bilaterally. Gravid abdomen without tenderness to palpation. Oropharynx was clear. Other physical exam findings unremarkable. Differential diagnoses include but limited to COVID, influenza, other viral URI, among others. Labs today showed a stable anemia with hemoglobin of 11.7. She was COVID- positive. Urinalysis negative. Other labs nonactionable. On reassessment she remains hemodynamically stable and in no acute distress. I discussed ED workup and results with patient as well as current plan to discharge with supportive care measures in the setting of her COVID-19 infection. Discussed only to use Tylenol at this time for her symptoms given her . Provided her with return ED precautions and instructions concerning follow-up. She verbalized understanding and agreement with plan. Subsequently discharged. Critical Care Critical Care Time Critical Care Time: No
[2024-05-17 12:17] LABS: Influenza A, PCR Not Detected (NotDetected); Influenza B, PCR Not Detected (NotDetected)
[2024-05-17] MEDS: ONDANSETRON 4MG ODT 4 MG SL (12:26)
[2024-05-17 12:29] LABS: Microscopic, Urine URINE MICROSCOPIC (MICROSCOPIC)
[2024-05-17 12:42] LABS: Appearance,Urine CLEAR (Clear); Bilirubin,Urine Negative (Negative); Blood, Urine Negative (Negative); Color,Urine YELLOW (Yellow); Glucose,Urine (UA) Negative (Negative); Ketones,Urine Negative (Negative); Leukocyte Esterase,Urine Negative (Negative); Nitrate,Urine Negative (Negative); PH,Urine 8.5 (5.0-8.5); Protein,Urine Negative (Negative); Specific Gravity, Urine 1.015 (1.005-1.030); Urobilinogen,Urine 0.2 EU/dl (0.2)
[2024-05-17 12:43] LABS: Coronavirus 19, PCR Detected (NotDetected)
[2024-05-17 13:06] LABS: Amorphous Sediment,Urine 2+ /lpf; Bacteria,Urine 1+ /lpf
[2024-05-17 13:10] LABS: Basophils % 0.2 % (0.1-2.0); Eosinophils # 0.1 K/mm3 (0.0-0.4); Hematocrit 34.7 % (37.0-47.0); Hemoglobin 11.7 g/dL (12.2-16.2); Lymphocytes # 0.4 K/mm3 (0.7-4.5); Lymphocytes % 6.2 % (10-50); Mean Corpuscular HGB Conc 33.6 g/dL (31.8-35.4); Mean Corpuscular Hemoglobin 32.1 pg (27.0-31.2); Mean Corpuscular Volume 95.6 fl (81-99); Mean Platelet Volume 8.2 fl (7.4-10.4); Monocytes # 0.3 K/mm3 (0.1-1.0); Monocytes % 4.8 % (1.7-9.3); Neutrophils # 5.8 K/mm3 (1.8-7.8); Neutrophils % 87.8 % (37.0-80.0); Platelet Count 278 K/mm3 (142-424); Red Blood Count 3.63 M/mm3 (4.20-5.40); Red Cell Distribution Width 13.4 % (11.5-17.5); White Blood Count 6.6 K/mm3 (4.8-10.8)
[2024-05-17 13:12] LABS: MANUAL DIFFERENTIAL MANUAL DIFFERENTIAL (MANUAL DIFF)
[2024-05-17 13:14] LABS: Alanine Aminotransferase 18 U/L (12-78); Albumin Level 3.7 g/dl (3.5-5.0); Albumin/Globulin Ratio 1.2 (1.1-1.8); Alkaline Phosphatase 89 U/L (38-126); Anion Gap 7.1 mEq/L (5-15); Aspartate Amino Transferase 23 U/L (14-36); Bilirubin,Total 0.4 mg/dl (0.2-1.3); Blood Urea Nitrogen 3 mg/dl (7-17); Calcium 8.7 mg/dl (8.4-10.2); Carbon Dioxide 26 mmol/L (22.0-30.0); Chloride 106 mmol/L (98-107); Creatinine Clearance Estimated 202 mL/min (50-200); Estimated Glomerular Filt Rate 146 ml/min (>60); GFR (African American) 177 ML/MIN (>60); Globulin 3.2 g/dL (1.3-3.2); Glucose 84 mg/dl (74-100); Potassium 4.1 mmoL/L (3.5-5.1); Sodium 135 mmol/L (136-145); Total Protein,Serum 6.9 g/dl (6.3-8.2)
[2024-05-17] MEDS: ACETAMINOPHEN 500MG TAB 1000 MG PO (13:40)
[2024-05-17 13:44] LABS: Eosinophils % 2 % (0-3); Lymphocytes % 13 % (10-50); Monocytes % 2 % (2-9); Neutrophils % 83 % (42-76); Platelet Estimate Normal; RBC Morphology Normal; Total Cells Counted 100
[2024-05-17 13:47] VITALS: BP 121/78; PULSE 93; RESP 18; TEMP 36.7; O2SAT 98
== END 2024-05-17 13:47 | disposition home or self-care (01) ==
PROVIDERS: Emergency Provider Emergency Medicine; PCP Physician Assistant
DX: O98.512 Other viral diseases complicating pregnancy, second trimester; U07.1 COVID-19; R05.9 Cough, unspecified; R11.2 Nausea with vomiting, unspecified; Z3A.27 27 weeks gestation of pregnancy
CPT/HCPCS: 80053; 81001; 85007; 85025; 85027; 87636; 99283

== ENCOUNTER 2024-06-03 09:59 | Outpatient (CLI) | payer OTHER, SELFPAY ==
[2024-06-03 11:04] LABS: Basophils % 0.2 % (0.1-2.0); Eosinophils # 0.1 K/mm3 (0.0-0.4); Eosinophils % 1.3 % (0.1-12.0); Hematocrit 36.8 % (37.0-47.0); Hemoglobin 11.8 g/dL (12.2-16.2); Lymphocytes # 1.7 K/mm3 (0.7-4.5); Lymphocytes % 20.9 % (10-50); Mean Corpuscular HGB Conc 32.2 g/dL (31.8-35.4); Mean Corpuscular Hemoglobin 32.1 pg (27.0-31.2); Mean Corpuscular Volume 99.7 fl (81-99); Mean Platelet Volume 7.9 fl (7.4-10.4); Monocytes # 0.4 K/mm3 (0.1-1.0); Monocytes % 5.2 % (1.7-9.3); Neutrophils # 5.7 K/mm3 (1.8-7.8); Neutrophils % 72.3 % (37.0-80.0); Platelet Count 293 K/mm3 (142-424); Red Blood Count 3.69 M/mm3 (4.20-5.40); Red Cell Distribution Width 13.5 % (11.5-17.5); White Blood Count 7.9 K/mm3 (4.8-10.8)
[2024-06-03 11:07] LABS: Glucose,Fasting 83 mg/dl (74-100)
[2024-06-03 12:09] LABS: Glucose 1 Hour 92 mg/dL (74-100)
[2024-06-04 12:55] LABS: Rapid Plasma Reagin Ab Titer Non Reactive titer (NonRea<1:1)
== END 2024-06-03 23:59 | disposition home or self-care (01) ==
LOC: LAB 10:00
PROVIDERS: PCP Physician Assistant; Visit Provider Obstetrics & Gynecology
DX: Z34.90 Encounter for supervision of normal pregnancy, unspecified, unspecified trimester (principal)
CPT/HCPCS: 36415; 82951; 85025; 86593

== ENCOUNTER 2024-07-04 11:40 | Outpatient (CLI) | payer OTHER, SELFPAY ==
[2024-07-04 12:18] LABS: Basophils % 0.2 % (0.1-2.0); Eosinophils # 0.1 K/mm3 (0.0-0.4); Hematocrit 36.1 % (37.0-47.0); Hemoglobin 11.7 g/dL (12.2-16.2); Lymphocytes # 1.7 K/mm3 (0.7-4.5); Mean Corpuscular HGB Conc 32.4 g/dL (31.8-35.4); Mean Corpuscular Hemoglobin 31.6 pg (27.0-31.2); Mean Corpuscular Volume 97.5 fl (81-99); Mean Platelet Volume 9.6 fl (7.4-10.4); Monocytes # 0.4 K/mm3 (0.1-1.0); Monocytes % 4.6 % (1.7-9.3); Neutrophils # 6.7 K/mm3 (1.8-7.8); Neutrophils % 75.1 % (37.0-80.0); Platelet Count 233 K/mm3 (142-424); Red Cell Distribution Width 13.4 % (11.5-17.5); White Blood Count 8.9 K/mm3 (4.8-10.8)
[2024-07-04 12:36] LABS: Alanine Aminotransferase 13 U/L (12-78); Anion Gap 6.3 mEq/L (5-15); Aspartate Amino Transferase 21 U/L (14-36); Blood Urea Nitrogen 3 mg/dl (7-17); Calcium 8.6 mg/dl (8.4-10.2); Carbon Dioxide 25 mmol/L (22.0-30.0); Chloride 108 mmol/L (98-107); Estimated Glomerular Filt Rate 146 ml/min (>60); GFR (African American) 177 ML/MIN (>60); Glucose 77 mg/dl (74-100); Potassium 4.3 mmoL/L (3.5-5.1); Sodium 135 mmol/L (136-145); Uric Acid 4.8 mg/dl (2.5-6.2)
[2024-07-04 12:45] LABS: NT Pro Brain Natriuretic Pep. 51.2 pg/mL (0-125)
[2024-07-04 14:42] LABS: Activated Partial Thrombo Time 26.2 seconds (22.8-30.6); INR 0.86 (0.9-1.1); Prothrombin Time 9.8 seconds (10.1-12.5)
[2024-07-04 15:09] LABS: Fibrinogen 454 mg/dL (229.9-363.5)
== END 2024-07-04 23:59 | disposition home or self-care (01) ==
LOC: LAB 11:41
PROVIDERS: PCP Physician Assistant; Visit Provider Nurse Practitioner Obstetrics & Gynecology
DX: O12.00 Gestational edema, unspecified trimester (principal); Z3A.34 34 weeks gestation of pregnancy
CPT/HCPCS: 36415; 80048; 83880; 84450; 84460; 84550; 85025; 85384; 85610; 85730

== ENCOUNTER 2024-07-11 14:17 | Outpatient (CLI) | payer OTHER, SELFPAY ==
--- NOTE | 2024-07-11 14:22 | US_ITS ---
PROCEDURE: US OB BIOPHYSICAL PROFILE CLINICAL INDICATION: lga,owen COMPARISON: US US OB /MATERNAL DETAIL from 04/08/2024 FINDINGS: Transabdominal sonographic images of the uterus were obtained. From her established due date she is 35weeks 2days. The following parameters are obtained: Viable Fetus in the cephalic presentation with an anterior placenta grade 2. Average ultrasound age is 34weeks 4days Estimated weight 2,568g, 5 lb 11 oz Cervix measures 3.0 cm. Measurements: heart Rate = 152bpm BPD = 33weeks 2days, 7 percentile HC = 34weeks 3days, 6 percentile AC = 35weeks 6days, 72 percentile FL = 34weeks 3days, 22 percentile HC/AC is 0.97 FL/BPD is 0.81 FL/AC is 0.21 40 percentile Amniotic fluid index: 10.72cm, MVP 3.70 cm. Qualitative AFV:2 Breathing movements: 2 Gross Body Movements: 2 Tone: 2 Biophysical profile score: 8 No obvious anomalies evident.Kidneys, bladder, stomach, four-chamber heart, three-vessel cord appear normal. IMPRESSION: 1. Viable fetus in the cephalic presentation with an anterior placenta grade 2. 2. The fluid is within normal limits with an amniotic fluid index 10.72 cm, MVP 3.70 cm. 3. Biophysical profile is 8/8 with good breathing movement and movement seen. 4. There has been good interval growth with the fetus currently 40th percentile. 5. Limited anatomical scan appears normal. Dictated by: Zac Blum MD 07/11/2024 15:39 Zac Blum MD in [place] 07/11/2024 15:39
== END 2024-07-11 23:59 | disposition home or self-care (01) ==
LOC: RAD 14:17
PROVIDERS: PCP Physician Assistant; Visit Provider Nurse Practitioner Obstetrics & Gynecology
DX: O36.60X0 Maternal care for excessive fetal growth, unspecified trimester, not applicable or unspecified (principal); O28.8 Other abnormal findings on antenatal screening of mother
CPT/HCPCS: 76816; 76819

== ENCOUNTER 2024-07-16 14:06 | Inpatient (IN) | payer OTHER, SELFPAY ==
[2024-07-16 14:16] VITALS: BMI 29.9
[2024-07-16 14:30] VITALS: BP 125/81; PULSE 85; RESP 17; TEMP 36.4; O2SAT 98; BMI 29.9
[2024-07-16 14:30] LABS: Microscopic, Urine URINE MICROSCOPIC (MICROSCOPIC)
[2024-07-16 14:33] LABS: Basophils % 0.3 % (0.1-2.0); Eosinophils # 0.1 K/mm3 (0.0-0.4); Eosinophils % 0.9 % (0.1-12.0); Hematocrit 37.7 % (37.0-47.0); Hemoglobin 12.1 g/dL (12.2-16.2); Lymphocytes # 1.9 K/mm3 (0.7-4.5); Lymphocytes % 16.1 % (10-50); Mean Corpuscular HGB Conc 32.2 g/dL (31.8-35.4); Mean Corpuscular Volume 96.3 fl (81-99); Mean Platelet Volume 9.8 fl (7.4-10.4); Monocytes # 0.5 K/mm3 (0.1-1.0); Monocytes % 4.3 % (1.7-9.3); Neutrophils # 9.2 K/mm3 (1.8-7.8); Neutrophils % 78.3 % (37.0-80.0); Platelet Count 262 K/mm3 (142-424); Red Blood Count 3.92 M/mm3 (4.20-5.40); Red Cell Distribution Width 13.3 % (11.5-17.5); White Blood Count 11.8 K/mm3 (4.8-10.8)
[2024-07-16] MEDS: LACTATED RINGERS 1000ML 1,000 ML 500 ML IV (14:34)
[2024-07-16 14:35] LABS: Appearance,Urine CLOUDY (Clear); Bilirubin,Urine Negative (Negative); Blood, Urine 3+ (Negative); Color,Urine YELLOW (Yellow); Glucose,Urine (UA) Negative (Negative); Ketones,Urine Negative (Negative); Leukocyte Esterase,Urine 3+ (Negative); Nitrate,Urine Negative (Negative); PH,Urine 7.5 (5.0-8.5); Protein,Urine Negative (Negative); Urobilinogen,Urine 0.2 EU/dl (0.2)
--- NOTE | 2024-07-16 14:44 | P.HP_ITS ---
History of Present Illness *Admission Date: 07/16/24 *Reason for visit:: Labor *History of present illness: Jany Santos is a 28yo who presented to labor and delivery today at 36 weeks and 0 days gestation. She has an LUIZ of 08/13/2024 based on first trimester ultrasound. This has been complicated by history of delivery at 33 weeks gestation. Her second delivery was at 40 weeks and the third was at 38 weeks gestation. History of SAB x 2 and EAB x 1. was also complicated by bipolar disorder, anxiety, depression, and ADHD. Menses also complicated by marijuana use. On presentation the patient reported vaginal bleeding and irregular contractions. Endorsed good movement and denies leakage of fluid. Of note she does desire a sterilization in the event of a delivery. B+, antibody negative, rubella immune, hepatitis B negative, hepatitis C negative, RPR negative, HIV negative 1 hour GTT: 92 GBS unknown Low risk female PFSH PFS Disclaimer: The information contained in this section may have been updated after the patient was seen, as this information can be updated by other users. 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 H/O nephrolithotomy with removal of calculi Marijuana use during Vulvar pruritus Vaginal discharge during Screening for genetic disease carrier status 01/24/24 - [facility] carrier screen negative for 4 conditions tested - CF, Fragile X, SMA and DMD Anxiety during History of kidney stones Attention Deficit Hyperactivity Disorder (ADHD) Spontaneous miscarriage History of delivery G1 33 wks, first Bipolar disorder Depression Anxiety Carpal tunnel syndrome Family History Other FHx: mental illness Hypertension Stroke 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 Smoking Status: Never smoker second hand exposure: Yes alcohol intake: current alcohol intake frequency: a few times a month substance use type: denies use current occupational status: unemployed Travel in the last 8 weeks: None number of children: 3 Review of Systems Review of Systems Review of systems (narrative): Review of Systems Constitutional: Denies fever, chills, and sweats Eyes: Denies vision change/ pain Respiratory: Denies cough and shortness of breath Cardiovascular: Denies chest pain and lightheadedness Gastrointestinal: Admits abdominal pain with contractions. Denies nausea, vomiting. Genitourinary: Denies dysuria and incontinence Musculoskeletal: Denies shoulder pain and back pain Neurological: Denies change in speech or headaches Meds Home Medications and Allergies Home Medications ?Medication ?Instructions ?Recorded ?Confirmed ?Type vits no.126-ferrous fum 1 tab PO DAILY #30 tabs 12/13/23 07/10/24 Rx 28 mg iron-folic acid 800 mcg tablet (Classic ) zinc acetate 50 mg (zinc) capsule 50 mg PO DAILY #30 caps 01/05/24 07/10/24 Rx blmvxhtbbv-feeighblzuamf-khdvgcjk 1 cap PO QODP PRN headache #20 caps 02/15/24 07/10/24 Rx 50 mg-300 mg-40 mg capsule (Fioricet) magnesium oxide 400 mg (241.3 mg See Rx Instructions .Route 04/17/24 07/10/24 Rx magnesium) tablet .COMPLEX #30 tabs promethazine 25 mg tablet 25 mg PO TID PRN nausea and 05/16/24 07/10/24 Rx vomiting #30 tabs lumateperone 42 mg capsule See Rx Instructions .Route 05/24/24 07/10/24 Rx (Caplyta) .COMPLEX #30 caps fluoxetine 60 mg tablet 60 mg PO DAILY #30 tabs 06/03/24 07/10/24 Rx propranolol 10 mg tablet 10 mg PO DAILY #30 tabs 06/24/24 07/10/24 Rx New Prescriptions to Start Prescriptions: Allergies Allergy/AdvReac Type Severity Reaction Status Date / Time amoxicillin Allergy Verified 07/10/24 13:13 [facility] [[facility] AdvReac Intermediate Nausea Verified 07/10/24 13:13 Exam Data for Last 24 hours Vital signs and Labs for Last 24 Hours: Laboratory Results - last 24 hr 07/16/24 13:46: Urine Color Yellow, Urine Appearance Cloudy, Urine pH 7.5, Ur Specific [place] 1.020, Urine Protein Negative, Urine Glucose (UA) Negative, Urine Ketones Negative, Urine Blood 3+ A, Urine Nitrate Negative, Urine Bilirubin Negative, Urine Urobilinogen 0.2, Ur Leukocyte Esterase 3+ A 07/16/24 14:22: WBC 11.8 H, RBC 3.92 L, Hgb 12.1 L, Hct 37.7, MCV 96.3, MCH 31.0, MCHC 32.2, RDW 13.3, Plt Count 262, MPV 9.8, Neut % (Auto) 78.3, Lymph % (Auto) 16.1, [place] % (Auto) 4.3, Eos % (Auto) 0.9, Baso % (Auto) 0.3, Neut # (Auto) 9.2 H, Lymph # (Auto) 1.9, [place] # (Auto) 0.5, Eos # (Auto) 0.1, Baso # (Auto) 0.0 I & O for Last 24 hours: Intake & Output 07/13/24 07/14/24 07/15/24 07/16/24 23:59 23:59 23:59 23:59 Weight 186 lb Narrative: General: patient is alert oriented in no acute distress and responds appropriately to questions. HEENT: NCAT, EOMI, moist mucous membranes, neck supple with full ROM Cardiovascular: RRR +S1/S2, no murmurs or rubs Pulmonary: Clear to auscultation bilaterally, nonlabored breathing, symmetric chest rise Abdominal: Gravid abdomen appropriate for gestation. No guarding, rebound, or tenderness noted. Extremities: trace edema, no tenderness or cyanosis noted Skin: Normal turgor, intact, warm. Negative for erythema, pallor, petechia, or lesions Neurologic: Negative for sensory or motor deficit Psychiatric: Normal affect, normal thought process, good judgment and insight, no depression or anxious mood appreciated. *Routine HEENT Exam Head: Present normocephalic and atraumatic Eye: Present EOMI, PERRL and normal accommodation; Absent conjunctival icterus, scleral injection, nystagmus or exophthalmos ENT: Present mucous membranes moist *Routine Respiratory Exam Respiratory: Present CTA bilaterally, normal respiratory effort, able to speak in complete sentences and symmetric chest movement; Absent accessory muscle use, decreased breath sounds, rales, respiratory distress, wheezes, distant breath sounds or diminished air movement *Routine Cardiovascular Exam Cardiovascular: Present RRR, Normal S1 and Normal S2; Absent murmur or gallop *Routine Abdominal Exam Abdominal: Present soft and normoactive bowel sounds; Absent tenderness, distended, rebound or guarding *Routine Rectal Exam Rectal:: deferred *Routine Genitalia Exam Genitalia:: normal female Assessment and Plan *Assessment and plan (1) Marijuana use during : Status: Acute Category: Medical Code(s): O99.320 - Drug use complicating , unspecified trimester; F12.90 - Cannabis use, unspecified, uncomplicated (2) Screening for genetic disease carrier status: Problem Comment: 01/24/24 - [facility] carrier screen negative for 4 conditions tested - CF, Fragile X, SMA and DMD Status: Acute Category: Medical Code(s): Z13.71 - Encounter for nonprocreative screening for genetic disease carrier status (3) Anxiety during : Status: Acute Category: Medical Code(s): O99.340 - Other mental disorders complicating , unspecified trimester; F41.9 - Anxiety disorder, unspecified (4) Attention Deficit Hyperactivity Disorder (ADHD): Status: Chronic Qualifiers: Attention deficit-hyperactivity disorder type: predominantly inattentive Qualified Code(s): F90.0 - Attention-deficit hyperactivity disorder, predominantly inattentive type Category: Medical Code(s): F90.9 - Attention-deficit hyperactivity disorder, unspecified type (5) PTSD (post-traumatic stress disorder): Status: Chronic Category: Medical Code(s): F43.10 - Post-traumatic stress disorder, unspecified (6) Bipolar disorder with severe depression: Status: Chronic Category: Medical Code(s): F31.4 - Bipolar disorder, current episode depressed, severe, without psychotic features (7) Bipolar disorder: Status: Chronic Qualifiers: Active/Remission status: currently active Current bipolar episode type: depressed Current episode severity: moderate Qualified Code(s): F31.32 - Bipolar disorder, current episode depressed, moderate Category: Medical Code(s): F31.9 - Bipolar disorder, unspecified (8) Depression: Status: Chronic Qualifiers: Depression Type: major depressive disorder Major depression recurrence: single episode Active/Remission status: currently active Major depression episode severity: mild Qualified Code(s): F32.0 - Major depressive disorder, single episode, mild Category: Medical Code(s): F32.9 - Major depressive disorder, single episode, unspecified (9) Anxiety: Status: Chronic Category: Medical Code(s): F41.9 - Anxiety disorder, unspecified (10) LGSIL on Pap smear of cervix: Status: Acute Category: Medical Code(s): R87.612 - Low grade squamous intraepithelial lesion on cytologic smear of cervix (LGSIL) Plan - Monitor vitals - Admit to L&D for labor monitoring and delivery - External FHR and TOCO monitor - Exam on admission: /-2. Pt was admitted and transferred to a labor room where she rapidly progressed and was noted to be complete with a bulging bag of water. - GBS unknown/ Blood type: B+ - Initiate GBS prophylaxis with clindamycin given amoxicillin allergy - Hemoglobin: 12.1, Plt: 262 - Plan for regional anesthesia - Anticipate vaginal delivery of female : Iris. FOB: Anthony Santos #Bipolar #Anger #Anxiety #Depression -Continue home rx (Caplyta and Prozac) #LSIL -Follow up
[2024-07-16 14:52] LABS: Amphetamine/Metha Screen,Urine Negative ng/ml (<1000); Barbiturates Screen,Urine Negative ng/ml (<200)
[2024-07-16 14:53] LABS: Benzodiazepines Screen,Urine Negative ng/ml (<200); Cannabinoid Screen,Urine Positive ng/ml (<50)
[2024-07-16 14:54] LABS: Cocaine Screen,Urine Negative ng/ml (<300)
[2024-07-16 14:55] LABS: Methadone Screen,Urine Negative ng/ml (<300); Opiate Screen,Urine Negative ng/ml (<300)
[2024-07-16 14:56] LABS: Phencyclidine Screen,Urine Negative ng/ml (<25)
[2024-07-16] MEDS: CLINDAMYCIN PHOSPHATE/D5W 900 MG/50 ML PIGGYBACK 100 MG IV (14:59)
[2024-07-16 15:08] LABS: Bacteria,Urine 1+ /lpf
[2024-07-16] MEDS: OXYTOCIN/RINGERS LACTATE 30 UNITS/500 ML BAG 40 UNITS IV (15:32)
--- NOTE | 2024-07-16 15:55 | P.PCN_ITS ---
Delivery Note Delivery Date:: 07/16/24 Delivery Time:: 15:13 Was labor medically induced?: No Induction method: none Gestational age (weeks): 36 delivered prior to 39 weeks?: Yes Justification for early elective delivery:: Active Labor Gender: Female at 1 minute: 7 (2 color, 1 respiratory) at 5 minutes: 9 (Color) Delivery Procedure:: Preoperative diagnosis: 1. at 36 completed this weeks gestation, vertex 2. Rh positive 3. GBS unknown, unable to get antibiotics secondary to rapid delivery. 4. labor 5. Meconium stained fluid Postoperative diagnosis: 1. at 36 completed this weeks gestation, vertex 2. Rh positive 3. GBS unknown, unable to get antibiotics secondary to rapid delivery. 4. labor 5. Meconium stained fluid EBL: 100mL Specimen: 1. Cord blood 2. Placenta Findings: 1. Liveborn viable male : Iris. Apgars 7/9 at 1 and 5 minutes respectively. Weight pending at time of dictation Complications: None Procedure: Nonoperative spontaneous vaginal delivery Jany Santos is a 28-year-old who presented to labor and delivery with vaginal bleeding and irregular contractions. Patient endorsed good movement. On arrival she was noted to be 6 cm with a bulging bag of water. She is admitted to labor and delivery and transferred to the labor room. Shortly after getting to her labor room and obtaining IV access she was noted to be complete. She was GBS unknown and unable to receive antibiotics prior to delivery. Patient experienced SROM revealing meconium stained fluid. With effective maternal pushing there was a nonoperative spontaneous vaginal delivery. There was no nuchal cord. The anterior left shoulder delivered, followed by the posterior shoulder without dystocia. The body and lower extremities delivered without difficulty. The was bulb suctioned and was crying immediately following delivery. The was placed on the maternal abdomen and greater than one minute was appreciated for delayed cord clamping. The umbilical cord was doubly clamped and cut. Cord blood was collected and sent for routine testing. The placenta delivered with cord traction and suprapubic contertraction. Pitocin was started. At this time decision was made to transfer the infant to the [facility] for evaluation by respiratory therapy and L&D RN. The uterus was firm and bleeding was minimal. The perineum, vaginal brink, cervix, and paraurethral area were inspected thoroughly and noted to be free of la ceration. This concluded the delivery. The patient tolerated the delivery well. All counts were correct by nursing. Mother and were doing well upon my leaving the delivery room. was transitioning and quickly moved back to the maternal chest for skin to skin bonding. Placental Delivery Description: Spontaneous
--- NOTE | 2024-07-16 16:22 | HMH.PHAINT1 ---
Pharmacy Intervention Comments: MEDICATION RECONCILIATION COMPLETE USING LIST FROM OB OFFICE AND EXTERNAL PHARMACY FILL HISTORY AND PAWAN REPORT.
[2024-07-16] MEDS: IBUPROFEN 400 MG TABLET 800 MG PO (16:23)
[2024-07-16] MEDS: ACETAMINOPHEN 500MG TAB 1000 MG PO ×2 (16:24→21:46)
[2024-07-16] MEDS: WITCH HAZEL 40 PADS/BOX 1 EACH TP (17:03)
[2024-07-16] MEDS: BENZOCAINE-MENTHOL SPRAY 56GM CAN TP (17:03)
[2024-07-16] MEDS: LANOLIN CREAM 40GM TP (21:46)
[2024-07-17] MEDS: IBUPROFEN 400 MG TABLET 800 MG PO ×3 (01:25→18:18)
[2024-07-17] MEDS: ACETAMINOPHEN 500MG TAB 1000 MG PO ×3 (04:50→17:04)
[2024-07-17 05:19] LABS: Basophils # 0.1 K/mm3 (0-0.2); Basophils % 0.5 % (0.1-2.0); Eosinophils # 0.1 K/mm3 (0.0-0.4); Eosinophils % 1.2 % (0.1-12.0); Hematocrit 33.4 % (37.0-47.0); Hemoglobin 10.9 g/dL (12.2-16.2); Lymphocytes # 2.3 K/mm3 (0.7-4.5); Lymphocytes % 22.3 % (10-50); Mean Corpuscular HGB Conc 32.7 g/dL (31.8-35.4); Mean Corpuscular Hemoglobin 31.5 pg (27.0-31.2); Mean Corpuscular Volume 96.4 fl (81-99); Mean Platelet Volume 10.7 fl (7.4-10.4); Monocytes # 0.6 K/mm3 (0.1-1.0); Monocytes % 5.8 % (1.7-9.3); Neutrophils # 7.3 K/mm3 (1.8-7.8); Neutrophils % 70.3 % (37.0-80.0); Platelet Count 235 K/mm3 (142-424); Red Blood Count 3.46 M/mm3 (4.20-5.40); Red Cell Distribution Width 13.6 % (11.5-17.5); White Blood Count 10.4 K/mm3 (4.8-10.8)
[2024-07-17] MEDS: FLUOXETINE 20MG CAPSULE 60 MG PO (09:19)
[2024-07-17] MEDS: PROPRANOLOL 20MG TAB 10 MG PO (09:20)
[2024-07-17] MEDS: MAGNESIUM OXIDE 400MG TABLET 400 MG PO (09:20)
[2024-07-17] MEDS: ZINC SULFATE 220MG CAPSULE 220 MG PO (09:20)
--- NOTE | 2024-07-17 09:22 | SW/DCPLANNER ---
Addendum entered by Jeaneth Iniguez 07/22/24 08:17: Infant cord screen is positive for THC and has been faxed to Garry Villarreal w/ CPS. Addendum entered by Jeaneth Iniguze 07/18/24 11:18: Per Denise Tobias w/ CPS infant is fine to return home w/ patient. Patient and infant will discharge home this afternoon. Addendum entered by Shauna Kat RN 07/18/24 09:30: Danica Tobias called and stated that she was unable to come yesterday afternoon. She will be up before this afternoon. Addendum entered by Shauna Kat RN 07/17/24 13:12: Danica Tobias called and said she would likely be up here before the end of her day today. Addendum entered by Jeaneth Iniguez 07/17/24 11:33: Per Central Intake and Bill w/ CPS this case does meet criteria for investigation under alternative (up to 5 days to investigate). Original Note: I received a consult for this patient regarding THC use throughout . Patient tested positive for THC on the following dates: 11/10/23, 11/30/23, 01/11/24, 06/03/24 and admission 07/16/24. 's urine is also positive for THC 07/16/24. Patient admits to THC use throughout due to stress level. Infant female (Iris Santos) was born yesterday 07/16/24. 's father (Anthony Santos 02/28/90) was present at the time of my visit. Patient, Anthony, infant and three other children (Robel Newsted 01/14/17, [place] Ervin 07/19/18 and Brenna Gallegos 09/20/21 will reside at [address] [place] [address]. PED MD will be Dr Busch and patient stated she will have transportation to all follow up appointments. Patient stated that she will have the following items at home: crib, car seat, clothing, diapers and will be bottle/breast feeding. Expected discharge date is tomorrow . Due to positive THC for patient and infant I will report this case to Central Intake. ID#[id number]
[2024-07-17 09:25] VITALS: BP 134/81; PULSE 76; RESP 16; TEMP 36.7; O2SAT 97
--- NOTE | 2024-07-17 11:06 | P.PN_ITS ---
Subjective *Date: 07/17/24 *Time: 12:31 Interval history: PPD # 1 s/p Feeling well. Pain controlled. Pumping and bottle feeding.. Lochia is appropriate. Voiding without difficulty and passing flatus. Tolerating regular diet. Denies fever/chills, chest pain and shortness of breath. No headaches, vision changes, lightheadedness/dizziness. No lower extremity swelling. Ambulating well ad indira. Medical Exam Vital signs and Labs for Last 24 Hours: Vital Signs Temp Pulse Resp BP Pulse Ox O2 Del Method 07/17/24 09:25 98.1 F 76 16 134/81 97 Room Air 07/16/24 14:30 97.6 F 85 17 125/81 98 Room Air Laboratory Results - last 24 hr 07/16/24 13:46: Urine Color Yellow, Urine Appearance Cloudy, Urine pH 7.5, Ur Specific [place] 1.020, Urine Protein Negative, Urine Glucose (UA) Negative, Urine Ketones Negative, Urine Blood 3+ A, Urine Nitrate Negative, Urine Bilirubin Negative, Urine Urobilinogen 0.2, Ur Leukocyte Esterase 3+ A, Urine RBC 10-20, Urine WBC 10-20, Ur Squamous Epith Cells 10-20, Urine Bacteria 1+, Urine Opiates Screen Negative, Urine Methadone Screen Negative, Ur Barbituates Screen Negative, Ur Phencyclidine Scrn Negative, Ur Amphetamines Screen Negative, U Benzodiazepines Scrn Negative, Urine Cocaine Screen Negative, U Marijuana (THC) Screen Positive H 07/16/24 14:22: WBC 11.8 H, RBC 3.92 L, Hgb 12.1 L, Hct 37.7, MCV 96.3, MCH 31.0, MCHC 32.2, RDW 13.3, Plt Count 262, MPV 9.8, Neut % (Auto) 78.3, Lymph % (Auto) 16.1, [place] % (Auto) 4.3, Eos % (Auto) 0.9, Baso % (Auto) 0.3, Neut # (Auto) 9.2 H, Lymph # (Auto) 1.9, [place] # (Auto) 0.5, Eos # (Auto) 0.1, Baso # (Auto) 0.0, Blood Type B Positive, Antibody Screen Negative 07/17/24 05:10: WBC 10.4, RBC 3.46 L, Hgb 10.9 L, Hct 33.4 L, MCV 96.4, MCH 31.5 H, MCHC 32.7, RDW 13.6, Plt Count 235, MPV 10.7 H, Neut % (Auto) 70.3, Lymph % (Auto) 22.3, [place] % (Auto) 5.8, Eos % (Auto) 1.2, Baso % (Auto) 0.5, Neut # (Auto) 7.3, Lymph # (Auto) 2.3, [place] # (Auto) 0.6, Eos # (Auto) 0.1, Baso # (Auto) 0.1 I & O for Labs for Last 24 Hours: Intake & Output 07/14/24 07/15/24 07/16/24 07/17/24 23:59 23:59 23:59 23:59 Weight 185 lb 15.993 oz Head: Present atraumatic and normocephalic ENT: Present mucous membranes moist Neck: Present normal inspection and full ROM Respiratory: Present CTA bilaterally and normal respiratory effort Cardiac: Present Reg Rate and Rhythm GI: Present soft; Absent tenderness Comments:: Uterine fundus firm and below umbilicus Rectal (female): Present deferred (female): Present deferred Extremities: Present full ROM; Absent edema or calf tenderness Neuro: Present alert, awake and moves all extremities Assessment and Plan *Assessment and plan (1) Status post normal vaginal delivery: Status: Acute Category: Medical (2) Anxiety during : Status: Acute Category: Medical Code(s): O99.340 - Other mental disorders complicating , unspecified trimester; F41.9 - Anxiety disorder, unspecified (3) Bipolar disorder with severe depression: Status: Chronic Category: Medical Code(s): F31.4 - Bipolar disorder, current episode depressed, severe, without psychotic features (4) PTSD (post-traumatic stress disorder): Status: Chronic Category: Medical Code(s): F43.10 - Post-traumatic stress disorder, unspecified (5) Attention Deficit Hyperactivity Disorder (ADHD): Status: Chronic Qualifiers: Attention deficit-hyperactivity disorder type: predominantly inattentive Qualified Code(s): F90.0 - Attention-deficit hyperactivity disorder, predominantly inattentive type Category: Medical Code(s): F90.9 - Attention-deficit hyperactivity disorder, unspecified type (6) Marijuana use during : Status: Acute Category: Medical Code(s): O99.320 - Drug use complicating , unspecified trimester; F12.90 - Cannabis use, unspecified, uncomplicated Plan Continue routine care Feeling well Plan d/c home tomorrow
[2024-07-17 16:04] LABS: POC Glucose,Bedside 64 (70-110)
[2024-07-17 19:44] VITALS: BP 132/75; PULSE 75; RESP 18; TEMP 37.1
[2024-07-18] MEDS: ACETAMINOPHEN 500MG TAB 1000 MG PO (05:10)
[2024-07-18] MEDS: FLUOXETINE 20MG CAPSULE 60 MG PO (08:55)
[2024-07-18] MEDS: ZINC SULFATE 220MG CAPSULE 220 MG PO (08:55)
[2024-07-18] MEDS: MAGNESIUM OXIDE 400MG TABLET 400 MG PO (08:55)
[2024-07-18] MEDS: PROPRANOLOL 20MG TAB 10 MG PO (08:58)
[2024-07-18 09:12] VITALS: BP 133/84; PULSE 71; RESP 18; TEMP 36.4; O2SAT 98
--- NOTE | 2024-07-18 09:19 | P.DS_ITS ---
General Admission date:: 07/16/24 Discharge date: 07/18/24 HPI HPI HPI: PPD # 2 s/p Feeling well. Pain controlled. Formula feeding. Lochia is light Voiding without difficulty and passing flatus. Tolerating regular diet. Denies fever/chills, chest pain and shortness of breath. No headaches, vision changes, lightheadedness/dizziness. No lower extremity swelling. Ambulating well ad indira. Hospital Course Hospital Course Hospital Course: Jany Santos is a 28yo who presented to labor and delivery at 36 weeks and 0 days gestation. She has an LUIZ of 08/13/2024 based on first trimester ultrasound. This has been complicated by history of delivery at 33 weeks gestation. Her second delivery was at 40 weeks and the third was at 38 weeks gestation. History of SAB x 2 and EAB x 1. was also complicated by bipolar disorder, anxiety, depression, and ADHD. also complicated by marijuana use. On presentation the patient reported vaginal bleeding and irregular contractions. Endorsed good movement and denies leakage of fluid. She had a normal spontaneous vaginal delivery on 07/16/24 at 1513. She delivered a live female baby, Iris, weighing 8 lb 5 lb 13 oz. Apgars 7 (1 min), 9 (5 min). EBL 100 mL. She did well . Pain controlled. Formula feeding. Light lochia. Voiding without difficulty and passing flatus. Tolerating regular diet. Denies fever/chills, chest pain and shortness of breath. No headaches, dizziness/lightheadedness or vision changes. Vital signs stable, afebrile. Heart regular rate and rhythm. Lungs clear to auscultation. Abdomen soft, nontender. No lower extremity swelling. Ambulating well ad indira. Normal hospital course. She was discharged to home on POD # 2 with instructions to follow-up in the office in 2 weeks or sooner if needed. Exam Data for Last 24 hours Vital signs and Labs for Last 24 Hours: Temp Pulse Resp BP Pulse Ox O2 Del Method 98.7 F 75 18 132/75 97 Room Air 07/17/24 19:44 07/17/24 19:44 07/17/24 19:44 07/17/24 19:44 07/17/24 09:25 07/17/24 09:25 Laboratory Results - last 24 hr 07/17/24 14:41: POC Glucose 64 L I & O for Last 24 hours: Intake & Output 07/15/24 07/16/24 07/17/24 07/18/24 23:59 23:59 23:59 23:59 Weight 185 lb 15.993 oz Constitutional Constitutional: no acute distress and cooperative *Routine HEENT Exam Head: Present normocephalic and atraumatic Eye: Absent conjunctivae pink ENT: Present mucous membranes moist *Routine Neck Exam Neck: Present full ROM *Routine Respiratory Exam Respiratory: Present CTA bilaterally and normal respiratory effort *Routine Cardiovascular Exam Cardiovascular: Present RRR *Routine Abdominal Exam Abdominal: Present soft; Absent tenderness Comments: Uterine fundus firm and below umbilicus *Routine Rectal Exam Patient deferred: visual exam *Routine Exam Patient deferred: external exam *Routine Extremities Exam Extremities: Present full ROM; Absent edema or calf tenderness *Routine Neurological Exam Neurological: Present alert, moving all extremities and normal speech Routine Psychiatric Exam Psychiatric: Present normal affect and cooperative Results Data Completed and Pending Labs on day of discharge: Labs from last 24 hours 07/17/24 14:41 POC Glucose 64 L DS: Diagnosis Discharge Diagnosis (1) Status post normal vaginal delivery: Status: Acute (2) Anxiety during : Status: Acute Code(s): O99.340 - Other mental disorders complicating , unspecified trimester; F41.9 - Anxiety disorder, unspecified (3) Bipolar disorder with severe depression: Status: Chronic Code(s): F31.4 - Bipolar disorder, current episode depressed, severe, without psychotic features (4) PTSD (post-traumatic stress disorder): Status: Chronic Code(s): F43.10 - Post-traumatic stress disorder, unspecified (5) Attention Deficit Hyperactivity Disorder (ADHD): Status: Chronic Code(s): F90.9 - Attention-deficit hyperactivity disorder, unspecified type Qualifiers: Attention deficit-hyperactivity disorder type: predominantly inattentive Qualified Code(s): F90.0 - Attention-deficit hyperactivity disorder, predominantly inattentive type (6) Marijuana use during : Status: Acute Code(s): O99.320 - Drug use complicating , unspecified trimester; F12.90 - Cannabis use, unspecified, uncomplicated Meds Home Medications and Allergies Home Medications ?Medication ?Instructions ?Recorded ?Confirmed ?Type vits no.126-ferrous fum 1 tab PO DAILY #30 tabs 12/13/23 07/16/24 Rx 28 mg iron-folic acid 800 mcg tablet (Classic ) zinc acetate 50 mg (zinc) capsule 50 mg PO DAILY #30 caps 01/05/24 07/16/24 Rx owsivjrfts-uxymivgqduhfu-cuafjdyr 1 cap PO QODP PRN headache #20 caps 02/15/24 07/16/24 Rx 50 mg-300 mg-40 mg capsule (Fioricet) fluoxetine 60 mg tablet 60 mg PO DAILY #30 tabs 06/03/24 07/16/24 Rx propranolol 10 mg tablet 10 mg PO DAILY #30 tabs 06/24/24 07/16/24 Rx lumateperone 42 mg capsule 42 mg PO DAILY 07/16/24 07/16/24 History (Caplyta) magnesium oxide 400 mg (241.3 mg 400 mg PO DAILY 07/16/24 07/16/24 History magnesium) tablet promethazine 25 mg tablet 25 mg PO TIDP PRN nausea and 07/16/24 07/16/24 History vomiting ibuprofen 800 mg tablet 800 mg PO Q8H PRN pain #20 tabs 07/18/24 Rx New Prescriptions to Start Prescriptions: ibuprofen Heather Boyle Allergies Allergy/AdvReac Type Severity Reaction Status Date / Time amoxicillin Allergy Verified 07/10/24 13:13 viloxazine [From Qelbree] AdvReac Intermediate Nausea Verified 07/10/24 13:13 Discharge Plan Disposition Patient Disposition: Home, Self-Care Condition: Good Discharge Order Discharge Orders: Discharge Order (Routine); Ordered 07/18/24 Ordered By: Heather Boyle Follow up Plan Follow up with: Heather Boyle DO [Staff Physician] - 2 weeks Prescriptions/Medication Reconciliation: New ibuprofen 800 mg tablet 800 mg PO Q8H PRN (Reason: pain) Qty: 20 0RF Continued fluoxetine 60 mg tablet 60 mg PO DAILY Qty: 30 2RF propranolol 10 mg tablet 10 mg PO DAILY Qty: 30 2RF zinc acetate 50 mg (zinc) capsule 50 mg PO DAILY Qty: 30 2RF Classic 28 mg iron- 800 mcg tablet 1 tab PO DAILY Qty: 30 8RF pqiolthstz-iyaepiyrmjysq-gsai [Fioricet] 50-300-40 mg capsule 1 cap PO QODP PRN (Reason: headache) Qty: 20 0RF magnesium oxide 400 mg (241.3 mg magnesium) tablet 400 mg PO DAILY promethazine 25 mg tablet 25 mg PO TIDP PRN (Reason: nausea and vomiting) Caplyta 42 mg capsule 42 mg PO DAILY Problem Reconciliation Problems Reviewed?: Yes Patient Discharge Instructions ACTIVITY: Limited activity DIET: continue same diet and regular diet Additional Instructions: Congratulations! Discharge: 1. Take 800 mg Ibuprofen every 8 hours as needed for pain. You can also take 500-1000 mg of Tylenol in between doses, every 6-8 hours. 2. Nothing in the vagina for 6 weeks - no intercourse, douching or tampons. No tub baths/hot tubs or swimming pools 3. Reasons to return to L&D or call On-Call doctor - fever (greater than 100.4) - heavy vaginal bleeding (soaking through 1 pad in less than 2 hours) - vaginal discharge (malodorous and/or purulent) - severe headaches not resolved by medication or rest and leg tenderness/edema 4. depression/blues - Normal to feel anxious/overwhelmed for first 2 weeks - Talk to your doctor if: severe anxiety, trouble bonding with baby, withdrawing from other family members, thoughts of harming yourself or others Heather Boyle DO [facility] [phone] Print Language: Estonian Providers Primary Care Provider: Jacqueline Isbell Admit Provider: Richa Freeman Attending Provider: Richa Freeman
[2024-07-18] MEDS: IBUPROFEN 400 MG TABLET 800 MG PO (09:26)
[2024-07-18 13:19] LABS: Rapid Plasma Reagin Ab Titer Non Reactive titer (NonRea<1:1)
== END 2024-07-18 14:14 | disposition home or self-care (01) | DRG 806 ==
LOC: OBOUT 14:07 → OB 14:07
PROVIDERS: Admitting Provider Obstetrics & Gynecology; PCP Physician Assistant; Visit Provider Obstetrics & Gynecology
DX: O60.14X0 Preterm labor third trimester with preterm delivery third trimester, not applicable or unspecified (principal); O99.324 Drug use complicating childbirth; Z37.0 Single live birth; Z3A.36 36 weeks gestation of pregnancy; F12.90 Cannabis use, unspecified, uncomplicated
CPT/HCPCS: 59409; 36415; 59025; 80307; 81001; 82962; 85025; 86593; 86850; 87086; 88307; J7120

== ENCOUNTER 2024-08-28 14:05 | Outpatient (CLI) | payer OTHER, SELFPAY ==
[2024-08-28 14:50] LABS: Albumin Level 4.5 g/dl (3.5-5.0); Chloride 105 mmol/L (98-107); Potassium 4.1 mmoL/L (3.5-5.1); Sodium 139 mmol/L (136-145)
[2024-08-28 14:51] LABS: Basophils # 0.1 K/mm3 (0-0.2); Basophils % 0.6 % (0.1-2.0); Eosinophils # 0.2 K/mm3 (0.0-0.4); Eosinophils % 1.8 % (0.1-12.0); Hematocrit 40.6 % (37.0-47.0); Hemoglobin 13.8 g/dL (12.2-16.2); Lymphocytes # 2.7 K/mm3 (0.7-4.5); Lymphocytes % 32.3 % (10-50); Mean Corpuscular HGB Conc 33.9 g/dL (31.8-35.4); Mean Corpuscular Volume 91.5 fl (81-99); Mean Platelet Volume 7.5 fl (7.4-10.4); Monocytes # 0.5 K/mm3 (0.1-1.0); Monocytes % 6.4 % (1.7-9.3); Neutrophils # 4.9 K/mm3 (1.8-7.8); Neutrophils % 58.8 % (37.0-80.0); Platelet Count 306 K/mm3 (142-424); Red Blood Count 4.43 M/mm3 (4.20-5.40); Red Cell Distribution Width 13.3 % (11.5-17.5); White Blood Count 8.4 K/mm3 (4.8-10.8)
[2024-08-28 14:52] LABS: Blood Urea Nitrogen 13 mg/dl (7-17)
[2024-08-28 14:53] LABS: Alanine Aminotransferase 49 U/L (12-78); Albumin/Globulin Ratio 1.4 (1.1-1.8); Alkaline Phosphatase 92 U/L (38-126); Anion Gap 12.1 mEq/L (5-15); Aspartate Amino Transferase 35 U/L (14-36); Bilirubin,Total 0.4 mg/dl (0.2-1.3); Carbon Dioxide 26 mmol/L (22.0-30.0); Estimated Glomerular Filt Rate 74 ml/min (>60); GFR (African American) 90 ML/MIN (>60); Globulin 3.2 g/dL (1.3-3.2); Glucose 85 mg/dl (74-100); Total Protein,Serum 7.7 g/dl (6.3-8.2)
[2024-08-28 15:41] LABS: HCG,Quantitative < 2 mIU/ml (0-5.42)
== END 2024-08-28 23:59 | disposition home or self-care (01) ==
LOC: PREOP 14:06
PROVIDERS: PCP Physician Assistant; Visit Provider Obstetrics & Gynecology
DX: Z30.09 Encounter for other general counseling and advice on contraception (principal)
CPT/HCPCS: 80053; 84702; 85025

== ENCOUNTER 2024-09-03 06:06 | Day surgery (SDC) | payer OTHER, SELFPAY ==
[2024-08-28 14:46] VITALS: BMI 27.4
[2024-09-03] VITALS (11 sets, daily range): BP systolic 124–153; BP diastolic 61–92; PULSE 75–98; RESP 18; TEMP 36.3–43; O2SAT 94–98
[2024-09-03] MEDS: LACTATED RINGERS 1000ML 1,000 ML 25 ML IV (07:08)
[2024-09-03] MEDS: ACETAMINOPHEN 500MG TAB 1000 MG PO (07:08)
[2024-09-03] MEDS: BUPIVACAINE 0.5% W/EPI 1:200,000 30ML VIAL 30 ML IJ (10:19)
--- NOTE | 2024-09-03 10:58 | EXP.ANES.CKL ---
[facility] Disclaimer: The information contained in this section may have been updated after the patient was seen, as this information can be updated by other users. 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 Request for sterilization Left carpal tunnel syndrome Status post normal vaginal delivery H/O nephrolithotomy with removal of calculi Marijuana use during Vulvar pruritus Vaginal discharge during Screening for genetic disease carrier status Anxiety during History of kidney stones Attention Deficit Hyperactivity Disorder (ADHD) Spontaneous miscarriage History of delivery Bipolar disorder Depression Anxiety Carpal tunnel syndrome Surgical History History of ureter stent History of lithotripsy Family History Other FHx: mental illness Family history of heart disease Hypertension Stroke 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 Smoking Status: Current every day smoker tobacco type: e-cigarettes second hand exposure: Yes alcohol intake: never substance use type: denies use, marijuana and amphetamines current occupational status: unemployed Travel in the last 8 weeks: None marital status: number of children: 3 do you feel safe at home: Yes victim of physical abuse: No victim of emotional abuse: No victim of sexual abuse: No [facility] Anesthesia Checklist Patient Identification Patient Identification: Arm Band and Family Structural Data Admitted From: Home Planned Operative Procedure/s: Bilateral Salmingectomy. Consent for Planned Operative Procedure(s) Verified: Yes Verified Documents: Surgical Consent and History and Physical NPO Status Verified Time NPO: 00:00 Additional verifications Patient : No Anesthesia Reactions: No Hx Blood Transfusions: No Blood Transfusion Reaction: No Cephalosporin Allergy: No Previous Colonoscopy: No Airway Assessment Mallampati Score:: Class I C-Spine Mobility Assessed: Yes TMJ Mobility Assessed: Yes Dentition: Good Dentition Neurological Assessment Level of Consciousness: Awake, Alert, Appropriate and Follows Commands Hx Seizures: No Numbness or tingling in extremities: No Anesthesia Plan Anesthesia Risk discussed: Yes ASA Class: I Anesthesia Type: General Preoperative Comments Pre-Operative Comments: History of Tatum's Palsy. History of Kidney stones.
[2024-09-03] MEDS: HYDROMORPHONE 2MG/ML SYRINGE 0.5 MG IV (11:00)
--- NOTE | 2024-09-03 11:03 | EXP.ANES.I ---
[facility] Anesthesia Record Part I Anesthesia Record I Intake, IV Amount: 800 Hydration: Adequate Estimated blood loss (mL): 10 Urine output (mL): 0 Blood Products used (#): none Blood Pressure: 153/92 SaO2: 94 Pulse Rate: 98 Airway Patency: Patent Respiratory Rate: 18 Temperature: 97.6 F Patient is:: Drowsy and Stable Stable to PACU at:: 10:50
--- NOTE | 2024-09-03 11:06 | EXP.OP.NOTE ---
Date of procedure: 09/03/24 Pre-op Diagnosis:: 1. Complete family status, desires permanent sterilization Post-op Diagnosis:: 1. Complete family status, desires permanent sterilization Procedure performed:: Laparoscopy, bilateral salpingectomy Surgeon:: Heather Boyle DO Scoreboard Operator(s):: N/A BEHAVIORAL SCIENCES INSTRUCTOR:: Jb Redmond Anesthesia: GETA Estimated blood loss (mL): 10 Clinical Note:: Mrs Jany Santos is a 28 yo [id number] who presents to [facility] for scheduled procedure. She is complete with childbearing and desires permanent sterilization. History of x 4. Operative findings:: 1. On bimanual exam, uterus normal size and shape, retroverted. No adnexal masses palpated. Grossly normal appearing multiparous cervix with nabothian cyst noted on right side of anterior lip. 2. On laparoscopic exam, grossly normal appearing liver, stomach, omentum and bowel. Grossly normal appearing uterus, bilateral fallopian tubes and ovaries. No masses, adhesions or endometriosis seen Operative note:: Risks, benefits and alternatives were discussed with the patient. Risks include but are not limited to bleeding, infection, damage to adjacent structures and VTE. Patient voiced understanding and agreed to proceed with surgery. She was wheeled back to the operating room and placed under general anesthesia without difficulty. She was placed in the dorsal lithotomy position and prepped and draped in normal sterile fashion. A straight catheter was used to draine the bladder. A bimanual exam was performed. A weighted Auvard was placed in the vaginal vault. A single tooth tenaculum was placed on the anterior lip of the cervix. [place] manipulator was inserted into the cervical canal and attached to the tenaculum. Weighted Auvard was removed from the vagina. Attention was then drawn to the abdomen. A 1.5 cm infraumbilical incision was made. Veress needle was tested and inserted intraabdominally without difficulty. Opening pressure of 13 mm Hg. Veress needle was removed and second insertion was attempted with similar result. Laparoscope was inserted into obturator/trocar and direct insertion into the abdomen was performed under direct visualization. Opening pressure was 5 mm Hg. Abdomen was then insulflated to 15 mm Hg. Trocar was inserted through infraumbilical incision and laparoscope was inserted. Abdomen was viewed in its entirety. See findings above. Pictures were taken. Left lower quadrant was transilluminated. 5 mm incision was made and 5 mm disposable blunt trocar was inserted into the abdomen under direct laparoscopic visualization. Trocar was removed and sleeve was left in place. Right lower quadrant was transilluminated. A 5 mm incision was made and a 5 mm disposable trocar was inserted into the abdomen under direct laparoscopic visualization. Obturator was removed and sleeve was left in place. Fimbriated end of right fallopian tube was grasped. Ligasure was used to transect the right mesosalpinx and fallopian tube at uterine cornua, leaving right ovary in situ. Same procedure was carried out on the contralateral side. Bilateral fallopian tubes will be sent to pathology for review. Hemostasis was noted. Left lower quadrant trocar was removed under direct laparoscopic visualization. Right lower quadrant trocar was removed under direct laparoscopic visualization. Pneumoperitoneum was released into the atmosphere. Infraumbilical trocar was removed under direct laparoscopic visualization to ensure no herniation of bowel or omentum. Skin incisions were closed with 3-0 Vicryl. Dermabond was applied over closed skin incisions. All instruments were removed from the vagina. Tenaculum site was noted to be oozing. Silver nitrate stick x 2 applied with continued oozing from left tenaculum site. 2-0 Chromic suture was used to ligate tenaculum site. Hemostasis was noted. Patient was cleaned and placed into the dorsal supine position. She awoke from anesthesia without difficulty. She was transported to the recovery room in stable condition. She was given instructions for discharge and to follow-up in the office in 2 weeks at which time pathology will be reviewed. Condition: stable Disposition: same day Specimens:: 1. Bilateral fallopian tubes Complications:: None
[2024-09-03] MEDS: ONDANSETRON 4MG/2ML VIAL 4 MG IV (11:35)
--- NOTE | 2024-09-03 14:36 | P.PNANES_ITS ---
[facility] Anesthesia Record Part II Anesthesia Record Part II Discharge Time: 11:20 Destination: Surgical Day Care (OP Surgery) PACU nurse assessment reviewed?: Yes Patient Condition:: Good Anesthesia Complications:: None Swallowing reflex intact?: Yes Airway Patency: Patent Cyanosis?: No Blood Pressure: 130/85 SaO2: 96 Respiratory Rate: 18 Pulse Rate: 77 Temperature: 97.6 F Mental Status: Alert & Oriented Pain level:: 3 Nausea and/or vomitting:: None Intake, IV Amount: 0 Hydration: Adequate
== END 2024-09-03 12:00 | disposition home or self-care (01) ==
PROVIDERS: PCP Physician Assistant; Visit Provider Obstetrics & Gynecology
PROC: (CPT 58661; principal; 2024-09-03 09:15)
DX: Z30.2 Encounter for sterilization (principal)
CPT/HCPCS: 58661; J3490; J1100; J1171; J2250; J2405; J3010; J7120

== ENCOUNTER 2024-10-13 13:28 | Emergency (ER) | payer OTHER, SELFPAY ==
[2024-10-13 13:45] VITALS: BP 117/70; PULSE 90; RESP 20; TEMP 36.7; O2SAT 97; BMI 28.3
[2024-10-13 14:11] LABS: UTC Influenza A Antigen Negative (Negative); UTC Influenza B Antigen Negative (Negative); UTC Strep Screen (Rapid) Negative (Negative)
--- NOTE | 2024-10-13 14:32 | EXP.UTC ---
Discharge Plan Disposition Patient Disposition: Home, Self-Care Condition: Good Prescriptions Prescriptions: New prednisone 20 mg tablet 20 mg PO BID Qty: 10 0RF No Action magnesium oxide 400 mg (241.3 mg magnesium) tablet 400 mg PO DAILY Patient Comments: TAKE ONE TABLET BY MOUTH EVERY DAY dextroamphetamine-amphetamine [Adderall XR] 20 mg capsule,extended release 24hr 20 mg PO DAILY Patient Comments: TAKE ONE CAPSULE BY MOUTH EVERY DAY fluoxetine 60 mg tablet 60 mg PO DAILY Patient Comments: TAKE ONE TABLET BY MOUTH EVERY DAY Referrals Follow up/Referrals: Jacqueline Isbell PA [Primary Care Provider] - See instructions Activity Restrictions/Add. Instructions Additional Instructions/Restrictions: Tylenol and ibuprofen as needed for pain or fever Humidifier/vaporizer/hot steamy shower Follow-up with primary care tomorrow. Follow-up immediately in the ER of the [facility] [[email or web address]] for new or worsening symptoms or no noticeable improvement over the next 48-72 hours. Stop smoking Start steroids today. Helps with inflammation therefore coughing and wheezing. Follow directions on package. Clinical Impressions Clinical Impression: Bronchitis Instructions Patient Instructions: DI for Acute Bronchitis Print Language Print Language: Belgian Discharge ED Provider: Leonardo ([facility] [[email or web address]])Yaneli [facility] HPI General Stated complaint: cough, fever, body aches Mode of Arrival: Ambulatory Source of Information: Patient Limitations: No Limitations Time Seen by Provider: 10/13/24 13:59 Description of Symptoms (Recalled from Triage Doc. by RN): PATIENT C/O FEVER, COUGH, RUNNY NOSE, BODY ACHES, AND FEELING LIGHT-HEADED X 3-4 DAYS HEENT Symptoms (Recalled from RN notes): Yes Resp Symptoms (Recalled from RN notes): Yes Skin Symptoms (Recalled from RN notes): No MS Symptoms (Recalled from RN notes): No Functional Status (Recalled from RN notes): WNL History of Present Illness Provider Complaint: 28-year-old female presents for coughing, fever, runny nose, body aches, and feeling lightheaded for 3 to 4 days. Child has similar symptoms. Related Data Home Medications ?Medication ?Instructions ?Recorded ?Confirmed dextroamphetamine-amphetamine ER 20 mg PO DAILY 10/13/24 10/13/24 20 mg 24hr capsule,extend release (Adderall XR) fluoxetine 60 mg tablet 60 mg PO DAILY 10/13/24 10/13/24 magnesium oxide 400 mg (241.3 mg 400 mg PO DAILY 10/13/24 10/13/24 magnesium) tablet Previous Rx's ?Medication ?Instructions ?Recorded prednisone 20 mg tablet 20 mg PO BID #10 tabs 10/13/24 Allergies Allergy/AdvReac Type Severity Reaction Status Date / Time amoxicillin Allergy Verified 10/08/24 14:53 viloxazine (From Qelbree) AdvReac Intermediate Nausea Verified 10/08/24 14:53 Worker's Comp Is this a Worker's Comp case?: No [facility] Disclaimer: The information contained in this section may have been updated after the patient was seen, as this information can be updated by other users. 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 (Reviewed 10/13/24 @ 14:32 by Yaneli Patterson ([facility] [[email or web address]]), COMMUNICATIONS PROGRAM MANAGER) Request for sterilization Left carpal tunnel syndrome Status post normal vaginal delivery H/O nephrolithotomy with removal of calculi Marijuana use during Vulvar pruritus Vaginal discharge during Screening for genetic disease carrier status Anxiety during History of kidney stones Attention Deficit Hyperactivity Disorder (ADHD) Spontaneous miscarriage History of delivery Bipolar disorder Depression Anxiety Carpal tunnel syndrome Surgical History (Reviewed 10/13/24 @ 14:32 by Yaneli Patterson ([facility] [[email or web address]]), COMMUNICATIONS PROGRAM MANAGER) Hx of tubal ligation History of ureter stent History of lithotripsy Family History (Reviewed 10/13/24 @ 14:32 by Yaneli Patterson ([facility] [[email or web address]]), COMMUNICATIONS PROGRAM MANAGER) Family history of heart disease FHx: mental illness Hypertension Stroke 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 (Reviewed 10/13/24 @ 14:32 by Yaneli Patterson ([facility] [[email or web address]]), COMMUNICATIONS PROGRAM MANAGER) Smoking Status: Current every day smoker tobacco type: e-cigarettes second hand exposure: Yes alcohol intake: never substance use type: denies use, marijuana and amphetamines current occupational status: unemployed Travel in the last 8 weeks: None marital status: number of children: 3 do you feel safe at home: Yes victim of physical abuse: No victim of emotional abuse: No victim of sexual abuse: No ROS Obtained: Yes Systems reviewed as appropriate & no additional complaints except as documented Physical Exam General General appearance: alert and in no apparent distress Eye Eye exam: Present normal appearance ENT ENT exam: Present normal exam, normal oropharynx, mucous membranes moist and TM's normal bilaterally Respiratory Respiratory exam: Present wheezes Cardiovascular Cardiovascular exam: Present regular rate and normal rhythm Neurological Exam Neurological exam: Present alert and oriented X3 Lymphatic Lymphatic Findings: no adenopathy Medical Decision Making Medical Records Medical records reviewed: Yes I reviewed the patient's medical records. Screening: Per USPSTF and CDC recommendations, given the prevalence of disease in our region, it is our hospital?s policy to screen for HIV and viral Hepatitis for all patients aged 18 and over and those with ongoing risk factors. Wili Inquiry Pt receiving controlled substance: No Vital Signs: 10/13/24 13:45 Temperature 98.0 F Temperature Source Oral Pulse Rate [Left Brachial] 90 Respiratory Rate 20 Blood Pressure [Left Arm] 117/70 Blood Pressure Mean [Left Arm] 85 Blood Pressure Source [Left Arm] Automatic Cuff Blood Pressure Position [Left Arm] Sitting 02 Sat by Pulse Oximetry 97 Oxygen Delivery Method Room Air Lab Data Lab results reviewed: Yes I reviewed the patient's lab results. Lab Results 10/13/24 13:52: Influenza Type A Ag Negative, Influenza Type B Ag Negative, Strep Scn Rapid Clinic Negative Orders (Tests/Meds): ORDERS Category Date Time Status Strep Screen Confirmation Stat Micro 10/13/24 13:52 Received
[2024-10-13 14:35] VITALS: BP 117/70; PULSE 90; RESP 20; TEMP 36.7; O2SAT 97
== END 2024-10-13 14:38 | disposition home or self-care (01) ==
PROVIDERS: Emergency Provider Nurse Practitioner Family; PCP Physician Assistant
DX: J20.9 Acute bronchitis, unspecified (principal)
CPT/HCPCS: 87804; 87880; 99213; G0381

== ENCOUNTER 2024-11-05 09:24 | Emergency (ER) | payer OTHER, SELFPAY ==
[2024-11-05] VITALS (10 sets, daily range): BP systolic 117–142; BP diastolic 75–90; PULSE 67–84; RESP 16; TEMP 36.8–36.9; O2SAT 98–100; BMI 28.2
--- NOTE | 2024-11-05 09:31 | ECG_ITS ---
APPROVED REPORT Exam: Resting ECG HR:81 bpm ECG Measurements Heart Rate 81 AXES WY 159 P 44 QRSd 89 QRS 55 QT 367 T 53 QTc 404 Conclusion SINUS RHYTHM NORMAL ECG No STEMI Electronically signed by : KATIE CASTILLO, 11/06/2024 06:04:17
--- NOTE | 2024-11-05 09:50 | CT_ITS ---
FINAL REPORT TECHNIQUE: Thin section axial images were obtained from skull base to vertex without contrast. Coronal reconstruction images were obtained from the axial data. Exam was performed using dose reduction technique. CLINICAL HISTORY: headache severe pressure COMPARISON: None FINDINGS: There is no mass effect or midline shift. There is no hydrocephalus. There is no intracranial hemorrhage. The posterior fossa is without acute abnormality. The basilar cisterns are preserved. The soft tissues are without acute abnormality. No acute osseous abnormality is identified. IMPRESSION: No acute intracranial abnormality. Reviewed, Interpreted and Dictated by Kim Hancock MD Transcribed by Lizette Delgadillo Authenticated and [facility]
--- NOTE | 2024-11-05 09:50 | CT_ITS ---
FINAL REPORT TECHNIQUE: Thin section axial images were obtained after the administration of IV contrast. 3D imaging was obtained and reviewed. This study was performed with techniques to keep radiation doses as low as reasonably achievable, (ALARA). Individualized dose reduction techniques using automated exposure control or adjustment of mA and/or kV according to the patient's size were employed. CLINICAL HISTORY: headache severe pressure COMPARISON: None FINDINGS: Dural venous sinuses are opacified. There is no filling defect to suggest dural venous sinus thrombosis. Transverse sinuses are symmetric from right to left. IMPRESSION: No evidence of dural venous sinus thrombosis. Reviewed, Interpreted and Dictated by Kim Hancock MD Transcribed by Lizette Delgadillo Authenticated and [facility]
--- NOTE | 2024-11-05 09:51 | ED_ITS ---
Discharge Plan Disposition Patient Disposition: Xfer Short-Term Hosp Chief Complaint: PAIN Prescriptions Prescriptions: No Action rizatriptan 10 mg tablet,disintegrating 10 mg PO ONCE PRN (Reason: migraine headache) Qty: 10 6RF Rx Instructions: do not exceed 3 doses per 24 hrs magnesium oxide 400 mg (241.3 mg magnesium) tablet 400 mg PO DAILY Patient Comments: TAKE ONE TABLET BY MOUTH EVERY DAY dextroamphetamine-amphetamine [Adderall XR] 20 mg capsule,extended release 24hr 20 mg PO DAILY Patient Comments: TAKE ONE CAPSULE BY MOUTH EVERY DAY fluoxetine 60 mg tablet 60 mg PO DAILY Patient Comments: TAKE ONE TABLET BY MOUTH EVERY DAY prednisone 20 mg tablet 20 mg PO BID Qty: 10 0RF Referrals Follow up/Referrals: Jacqueline Isbell PA [Primary Care Provider] - See instructions Clinical Impressions Clinical Impression: Papilledema, Headache, Change in vision Print Language Print Language: Swazi Discharge ED Provider: Prasanth Owen General Adult HPI General Chief complaint: PAIN Stated complaint: high bp, blurred vision Time Seen by Provider: 11/05/24 09:27 History of Present Illness HPI narrative: Patient is a 28-year-old female with past medical history of migraine headaches, anxiety who presents emergency department for evaluation of headache, blurry vision, concern for elevated blood pressure. She took her blood pressure at home where it has ranged between 150 and 180 systolic. She typically has bitemporal headaches that are described as squeezing and have been going on for years and are currently under investigation by neurologist for which she states she has not had any definitive imaging yet. This headache currently is squeezing her temples left greater than right, there is associated intermittent blurry vision which has been going on over the last 24 to 48 hours which is new and has not happened previously. Denies recent trauma. No speech difficulty reported. No other acute complaints at this time. Related Data Home Medications ?Medication ?Instructions ?Recorded ?Confirmed dextroamphetamine-amphetamine ER 20 mg PO DAILY 10/13/24 10/13/24 20 mg 24hr capsule,extend release (Adderall XR) fluoxetine 60 mg tablet 60 mg PO DAILY 10/13/24 10/13/24 magnesium oxide 400 mg (241.3 mg 400 mg PO DAILY 10/13/24 10/13/24 magnesium) tablet Previous Rx's ?Medication ?Instructions ?Recorded prednisone 20 mg tablet 20 mg PO BID #10 tabs 10/13/24 rizatriptan 10 mg disintegrating 10 mg PO ONCE PRN migraine 10/17/24 tablet headache #10 tabs Allergies Allergy/AdvReac Type Severity Reaction Status Date / Time amoxicillin Allergy Hives Verified 11/05/24 10:15 viloxazine (From Qelbree) AdvReac Intermediate Nausea Verified 10/08/24 14:53 PFSH PFS Disclaimer: The information contained in this section may have been updated after the patient was seen, as this information can be updated by other users. 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) Hx of tubal ligation History of ureter stent History of lithotripsy Family History , 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) Family history of heart disease FHx: mental illness Hypertension Stroke 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 , 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) Smoking Status: Never smoker second hand exposure: Yes alcohol intake: never substance use type: denies use, marijuana and amphetamines current occupational status: unemployed Travel in the last 8 weeks: None marital status: number of children: 3 do you feel safe at home: Yes victim of physical abuse: No victim of emotional abuse: No victim of sexual abuse: No Have you lived/traveled outside [place] in past 30 days?: No Contact w/someone who lives/traveled outside US past 30 days?: No Exposure to someone with infectious disease in past 14 days?: No Do you have a fever (greater than 100.4 F or 38 C)?: No Have you tested positive for COVID-19: No Exposed to someone with COVID-19 in past 14 days?: No Do you have a sore throat?: No Do you have a cough?: No Do you have any weakness?: No Do you have any diarrhea?: No Are you experiencing any unusual bleeding?: No Do you have any muscle aches/pain?: No Do you have any abdominal pain?: No Are you experiencing loss of taste or smell?: No Other 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 Have you received the Flu Vaccine for this season: No Have you received the Pneumonia Vaccine: No ROS Obtained: Yes Systems reviewed as appropriate & no additional complaints except as documented Physical Exam General General appearance: alert and in no apparent distress Head Head exam: atraumatic and normocephalic Eye Eye exam: Present PERRL and EOMI ENT ENT exam: Present mucous membranes moist Neck Neck exam: Present normal inspection Chest Chest inspection: Present normal inspection and symmetric chest wall rise Respiratory Respiratory exam: Present normal lung sounds bilaterally; Absent respiratory distress Cardiovascular Cardiovascular exam: Present regular rate and normal rhythm Abdominal Exam Abdominal exam: Present soft; Absent tenderness Extremities Exam Extremities exam: Present normal inspection Neurological Exam Neurological exam: Present alert, oriented X3 and CN II-XII intact; Absent motor sensory deficit Psychiatric Psychiatric exam: Present normal affect Skin Skin exam: Present warm and dry Medical Decision Making Medical Records Screening: Per USPSTF and CDC recommendations, given the prevalence of disease in our region, it is our hospital?s policy to screen for HIV and viral Hepatitis for all patients aged 18 and over and those with ongoing risk factors. Wili Inquiry Pt receiving controlled substance: No Vital Signs: 11/05/24 09:26 11/05/24 10:00 11/05/24 10:30 Temperature 98.2 F Temperature Source Oral Pulse Rate 84 73 Pulse Rate [Left] 84 Respiratory Rate 16 Blood Pressure 133/87 117/75 Blood Pressure [Right Arm] 142/88 H Blood Pressure Mean [Right Arm] 106 Blood Pressure Source [Right Arm] Automatic Cuff Blood Pressure Position [Right Arm] Sitting 02 Sat by Pulse Oximetry 100 100 99 Oxygen Delivery Method Room Air Room Air 11/05/24 11:00 11/05/24 11:30 11/05/24 12:00 Temperature Temperature Source Pulse Rate 69 67 73 Pulse Rate [Left] Respiratory Rate Blood Pressure 127/87 132/81 136/86 Blood Pressure [Right Arm] Blood Pressure Mean [Right Arm] Blood Pressure Source [Right Arm] Blood Pressure Position [Right Arm] 02 Sat by Pulse Oximetry 98 98 98 Oxygen Delivery Method Room Air Room Air Room Air Lab Data Lab Results 11/05/24 09:58: WBC 5.7, RBC 4.60, Hgb 14.1, Hct 41.6, MCV 90.4, MCH 30.7, MCHC 33.9, RDW 13.4, Plt Count 316, MPV 9.6, Neut % (Auto) 67.2, Lymph % (Auto) 22.3, Butts % (Auto) 7.7, Eos % (Auto) 1.9, Baso % (Auto) 0.7, Neut # (Auto) 3.8, Lymph # (Auto) 1.3, Butts # (Auto) 0.4, Eos # (Auto) 0.1, Baso # (Auto) 0.0, Sodium 137, Potassium 4.0, Chloride 104, Carbon Dioxide 28, Anion Gap 9.0, BUN 8, Creatinine 0.80, Estimated Creat Clear 130, Estimated GFR 85, Est GFR ( Amer) 103, Glucose 82, Calcium 9.6, Total Bilirubin 0.5, AST 40 H, ALT 36, Alkaline Phosphatase 81, Total Protein 7.9, Albumin 4.6, Globulin 3.3 H, Albumin/Globulin Ratio 1.4, Serum HCG, Qual Negative, HIV Ag/Ab Combo Qual Negative 11/05/24 09:58 11/05/24 09:58 Orders (Tests/Meds): ED MEDICATIONS Discontinued Medications Generic Name Dose Route Start Last Admin Trade Name Freq PRN Reason Stop Dose Admin Acetaminophen 1,000 mg 11/05/24 09:49 11/05/24 10:02 Acetaminophen 1,000mg/100ml Vial IV 11/05/24 09:50 1,000 mg ONCE ONE Administration Diphenhydramine HCl 50 mg 11/05/24 10:03 11/05/24 10:28 Diphenhydramine 50mg/Ml Vial IV 11/05/24 10:04 Not Given ONCE ONE Iopamidol 80 ml 11/05/24 10:45 11/05/24 10:46 Iopamidol-370 (76%);100ml Bottle IV 11/05/24 10:46 80 ml ONCE ONE Administration Prochlorperazine Edisylate 5 mg 11/05/24 10:03 11/05/24 10:28 Prochlorperazine 10mg/2ml Vial IV 11/05/24 10:04 Not Given ONCE ONE Sodium Chloride 10 ml 11/05/24 10:45 11/05/24 10:46 Sodium Chloride 0.9% 10ml Syr (Rad Only) IV 11/05/24 10:46 10 ml ONCE ONE Administration Sodium Chloride 50 ml 11/05/24 10:45 11/05/24 10:46 0.9 % Sodium Chloride 50 Ml Vial IV 11/05/24 10:46 50 ml ONCE ONE Administration ORDERS Category Date Time Status CT Venogram head Stat Cat Scan 11/05/24 09:[address] head/brain wo con Stat Cat Scan 11/05/24 09:50 Completed POCUS Point of Care (ER Only) Stat Exams 11/05/24 09:28 Completed CBC w/Auto Diff [Complete Blood Count Auto Diff] Stat Lab 11/05/24 09:58 Completed CMP [Comprehensive Metabolic Panel] Stat Lab 11/05/24 09:58 Completed ESR [Erythrocyte Sedimentation Rate] Stat Lab 11/05/24 09:58 Received HCG Qualitative, Serum Stat Lab 11/05/24 09:58 Completed HIV Combo Stat Lab 11/05/24 09:58 Completed Hep C Ab with Reflex to RNA Stat Lab 11/05/24 09:58 Received Trop I [Troponin I] Stat Lab 11/05/24 09:58 Received Medical Decision Narrative: In summary patient is a 28-year-old female past medical history described above who presents emergency department for evaluation of headache and vision changes. Patient is hemodynamically stable nontoxic-appearing upon arrival, afebrile, blood pressure in the 140s systolic. With the specter elevated blood pressures I do not think there is anything acute to do and patient will benefit from outpatient surveillance as currently she has a class I hypertension and I do not think that this systolic blood pressure is contributing to her symptoms currently. Differential with respect to her headache and vision changes includes elevated intracranial pressure, migraine, anxiety, among others. [id number] ultrasound performed at bedside shows papilledema 5.7 mm on the right 5.3 mm on the left intraocular pressure just over 21 on the right and 19 on the left. Patient does not have an afferent pupillary defect. Workup will be conducted with hematologic labs and noncontrasted CT scan of the head as well as CTV. Initial inventions include IV Tylenol, Compazine, diphenhydramine. Visual acuity conducted OD 20/25, OS 20/25, OU 20/20. Initial workup reviewed by me, hematologic labs are nonactionable, no significant electrolyte abnormalities, no JACEY, no leukocytosis, hCG negative. Noncontrasted CT scan head informally visualized by me, no acute large intracranial hemorrhage or midline shift. CT head and CTV no acute pathology. Upon repeat evaluation patient some resolution of her headache and continue to have a nonfocal neurologic exam. Given headache with acute vision changes and suspected papilledema on [id number] ultrasound case discussed [facility] Dr. Patiño who agrees patient will benefit from expedited evaluation and graciously accepted patient for transfer for continued evaluation at this time. Given that patient had no rapid deterioration in the emergency department and remained nonfocal neurologic exam except for blurry vision patient is appropriate to go POV with someone else driving. Patient was discharged in stable condition. Procedure: Procedure performed was [id number] ultrasound. Procedure performed by Prasanth Owen. Using linear probe the right optic nerve and optic nerve sheath was identified, optic nerve sheath diameter 3 mm posterior the retina measures 5.7 mm. Optic nerve sheath identified on the left 3 mm posterior to the retina is 5.3 mm. Patient tolerated the procedure well. There were no immediate complications. Images were not saved to apartment archive, they were technically adequate and did necessitate further imaging. Critical Care Critical Care Time Critical Care Time: No
[2024-11-05] MEDS: ACETAMINOPHEN 1,000MG/100ML VIAL 1000 MG IV (10:02)
[2024-11-05 10:10] LABS: Basophils % 0.7 % (0.1-2.0); Eosinophils # 0.1 K/mm3 (0.0-0.4); Eosinophils % 1.9 % (0.1-12.0); Hematocrit 41.6 % (37.0-47.0); Hemoglobin 14.1 g/dL (12.2-16.2); Lymphocytes # 1.3 K/mm3 (0.7-4.5); Lymphocytes % 22.3 % (10-50); Mean Corpuscular HGB Conc 33.9 g/dL (31.8-35.4); Mean Corpuscular Hemoglobin 30.7 pg (27.0-31.2); Mean Corpuscular Volume 90.4 fl (81-99); Mean Platelet Volume 9.6 fl (7.4-10.4); Monocytes # 0.4 K/mm3 (0.1-1.0); Monocytes % 7.7 % (1.7-9.3); Neutrophils # 3.8 K/mm3 (1.8-7.8); Neutrophils % 67.2 % (37.0-80.0); Platelet Count 316 K/mm3 (142-424); Red Cell Distribution Width 13.4 % (11.5-17.5); White Blood Count 5.7 K/mm3 (4.8-10.8)
[2024-11-05 10:16] LABS: Chloride 104 mmol/L (98-107)
[2024-11-05 10:17] LABS: Albumin Level 4.6 g/dl (3.5-5.0); Sodium 137 mmol/L (136-145)
[2024-11-05 10:19] LABS: Blood Urea Nitrogen 8 mg/dl (7-17); Creatinine Clearance Estimated 130 mL/min (50-200); Estimated Glomerular Filt Rate 85 ml/min (>60); GFR (African American) 103 ML/MIN (>60)
[2024-11-05 10:20] LABS: Alanine Aminotransferase 36 U/L (12-78); Albumin/Globulin Ratio 1.4 (1.1-1.8); Alkaline Phosphatase 81 U/L (38-126); Aspartate Amino Transferase 40 U/L (14-36); Bilirubin,Total 0.5 mg/dl (0.2-1.3); Calcium 9.6 mg/dl (8.4-10.2); Carbon Dioxide 28 mmol/L (22.0-30.0); Globulin 3.3 g/dL (1.3-3.2); Glucose 82 mg/dl (74-100); Total Protein,Serum 7.9 g/dl (6.3-8.2)
[2024-11-05 10:26] LABS: HCG Qualitative, Serum Negative (Negative)
--- NOTE | 2024-11-05 10:28 | PC.NURSE ---
I rounded on the pt and took her a warm blanket. pt reports her BROWN has improved. no needs voiced. call owens in reach.
--- NOTE | 2024-11-05 10:40 | PC.NURSE ---
I rounded on the pt and took her a warm blanket. pt reports her BROWN and chest pain have both improved. no needs voiced. call owens in reach.
[2024-11-05] MEDS: 0.9 % SODIUM CHLORIDE 50 ML VIAL IV (10:46)
[2024-11-05] MEDS: SODIUM CHLORIDE 0.9% 10ML SYR (RAD ONLY) 10 ML IV (10:46)
[2024-11-05] MEDS: IOPAMIDOL-370 (76%);100ML BOTTLE 80 ML IV (10:46)
[2024-11-05 11:36] LABS: HIV Combo NEGATIVE (Negative)
--- NOTE | 2024-11-05 11:56 | PC.NURSE ---
Called [facility] per Dr. Owen for a possible transfer for papilledema, stated that they would give us a call back.
[2024-11-05 12:17] LABS: Troponin I < 0.01 ng/ml (0.00-0.034)
[2024-11-05 12:21] LABS: Erythrocyte Sedimentation Rate 1 mm/hr (0-20)
--- NOTE | 2024-11-05 12:21 | PC.NURSE ---
Dr. Owen on the phone with Dr. Patiño from .
--- NOTE | 2024-11-05 12:21 | PC.NURSE ---
Dr. Patiño accepted pt. to [facility].
--- NOTE | 2024-11-05 12:26 | PC.NURSE ---
I called report to Fe RYDER at [facility] ED
[2024-11-06 06:13] LABS: HCV Ab Non Reactive (Non Reactive)
== END 2024-11-05 13:51 | disposition short-term general hospital (02) ==
PROVIDERS: Emergency Provider Emergency Medicine; PCP Physician Assistant
DX: H47.10 Unspecified papilledema (principal); R51.9 Headache, unspecified; H53.9 Unspecified visual disturbance; I10 Essential (primary) hypertension
CPT/HCPCS: 70450; 70496; 80053; 84484; 84703; 85025; 85651; 86803; 87389; 93005; 96374; 96375; 99285; J0131; Q9967

== ENCOUNTER 2024-12-04 13:16 | Emergency (ER) | payer OTHER, SELFPAY ==
--- NOTE | 2024-12-04 13:19 | ED_ITS ---
Discharge Plan Disposition Patient Disposition: Home, Self-Care Condition: Good Prescriptions Prescriptions: New azithromycin [Zithromax] 250 mg tablet 250 mg PO UD DOSE PK Qty: 6 0RF Rx Instructions: Take two (2) tablets today, then one (1) tablet days #2 thru #5 methylprednisolone 4 mg Tablets,Dose Pack 4 mg PO DIRECTED 6 Days Qty: 21 0RF Rx Instructions: Take 1 pack as directed for 6 days joqthyfnrmjrykr-bvvpzrnks-YS [Bromfed DM] 2-30-10 mg/5 mL Syrup 5 ml PO Q6H PRN (Reason: Cough) Qty: 240 0RF No Action rizatriptan 10 mg tablet,disintegrating 10 mg PO ONCE PRN (Reason: migraine headache) Qty: 10 6RF Rx Instructions: do not exceed 3 doses per 24 hrs magnesium oxide 400 mg (241.3 mg magnesium) tablet 400 mg PO DAILY Patient Comments: TAKE ONE TABLET BY MOUTH EVERY DAY dextroamphetamine-amphetamine [Adderall XR] 20 mg capsule,extended release 24hr 20 mg PO DAILY Patient Comments: TAKE ONE CAPSULE BY MOUTH EVERY DAY fluoxetine 60 mg tablet 60 mg PO DAILY Patient Comments: TAKE ONE TABLET BY MOUTH EVERY DAY prednisone 20 mg tablet 20 mg PO BID Qty: 10 0RF Referrals Follow up/Referrals: Jacqueline Isbell PA [Primary Care Provider] - See instructions Activity Restrictions/Add. Instructions Additional Instructions/Restrictions: Drink plenty of fluids. Take tylenol or ibuprofen for pain or fever. Take the medications as directed. Follow up with your regular doctor. GO TO THE ER FOR ANY WORSENING SYMPTOMS Clinical Impressions Clinical Impression: Sinusitis, RSV exposure Stand Alone Forms Stand Alone Forms: Work/School Release Instructions Patient Instructions: Sinusitis, DI for Sinusitis Print Language Print Language: Ukrainian Discharge ED Provider: Jb Adame [facility] [place] HPI General Stated complaint: cheek head congestion cough Time Seen by Provider: 12/04/24 13:19 Related Data Home Medications ?Medication ?Instructions ?Recorded ?Confirmed dextroamphetamine-amphetamine ER 20 mg PO DAILY 10/13/24 12/04/24 20 mg 24hr capsule,extend release (Adderall XR) fluoxetine 60 mg tablet 60 mg PO DAILY 10/13/24 12/04/24 magnesium oxide 400 mg (241.3 mg 400 mg PO DAILY 10/13/24 12/04/24 magnesium) tablet Previous Rx's ?Medication ?Instructions ?Recorded prednisone 20 mg tablet 20 mg PO BID #10 tabs 10/13/24 rizatriptan 10 mg disintegrating 10 mg PO ONCE PRN migraine 10/17/24 tablet headache #10 tabs azithromycin 250 mg tablet 250 mg PO UD DOSE PK #6 tabs 12/04/24 (Zithromax) zosolujshunrhjb-mafxdyeftpcggty-LA 5 ml PO Q6H PRN Cough #240 mL 12/04/24 2 mg-30 mg-10 mg/5 mL oral syrup (Bromfed DM) methylprednisolone 4 mg tablets in 4 mg PO DIRECTED 6 days #21 tabs 12/04/24 a dose pack Allergies Allergy/AdvReac Type Severity Reaction Status Date / Time amoxicillin Allergy Hives Verified 11/05/24 10:15 viloxazine (From Qelbree) AdvReac Intermediate Nausea Verified 10/08/24 14:53 PFSH PFSH Disclaimer: The information contained in this section may have been updated after the patient was seen, as this information can be updated by other users. 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) Hx of tubal ligation History of ureter stent History of lithotripsy Family History , 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) Family history of heart disease FHx: mental illness Hypertension Stroke 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 , 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) Smoking Status: Never smoker second hand exposure: Yes alcohol intake: never substance use type: denies use, marijuana and amphetamines current occupational status: unemployed Travel in the last 8 weeks: None marital status: number of children: 3 do you feel safe at home: Yes victim of physical abuse: No victim of emotional abuse: No victim of sexual abuse: No Have you lived/traveled outside US in past 30 days?: No Contact w/someone who lives/traveled outside US past 30 days?: No Exposure to someone with infectious disease in past 14 days?: No Do you have a fever (greater than 100.4 F or 38 C)?: No Have you tested positive for COVID-19: No Exposed to someone with COVID-19 in past 14 days?: No Do you have a sore throat?: No Do you have a cough?: Yes Do you have any weakness?: Yes Do you have any diarrhea?: No Are you experiencing any unusual bleeding?: No Do you have any muscle aches/pain?: No Do you have any abdominal pain?: No Are you experiencing loss of taste or smell?: No ROS Obtained: Yes All systems reviewed & no additional complaints except as documented Constitutional Constitutional: Reports chills and Reports fever(s) Eyes Eyes: Denies eye discharge ENT Ears, Nose, Mouth, and Throat: Reports as per HPI Cardiovascular Cardiovascular: Denies chest pain Respiratory Respiratory: Denies chest congestion and Reports cough Gastrointestinal Gastrointestingal: Reports nausea; Denies abdominal pain, constipation, cramping, diarrhea or vomiting Musculoskeletal Musculoskeletal: Denies arthralgias Integumentary/Breasts Skin/Breast: Denies rash Neurologic Neurologic: Denies paresthesias Physical Exam General General appearance: alert and in no apparent distress Head Head exam: atraumatic, normocephalic and normal inspection Eye Eye exam: Present normal appearance, PERRL and EOMI ENT ENT exam: Present normal exam, normal oropharynx, mucous membranes moist, TM's normal bilaterally and normal external ear exam Neck Neck exam: Present normal inspection, full ROM and trachea midline; Absent meningismus or lymphadenopathy Chest Chest inspection: Present normal inspection and symmetric chest wall rise; Absent tenderness Respiratory Respiratory exam: Present normal lung sounds bilaterally; Absent respiratory distress Cardiovascular Cardiovascular exam: Present regular rate and normal rhythm; Absent JVD Abdominal Exam Abdominal exam: Present soft and normal bowel sounds; Absent distention, tenderness or guarding Extremities Exam Extremities exam: Present normal inspection, full ROM and normal capillary refill; Absent calf tenderness Back Exam Back exam: Present normal inspection; Absent tenderness Neurological Exam Neurological exam: Present alert and oriented X3 Psychiatric Psychiatric exam: Present normal affect and normal mood Skin Skin exam: Present warm, dry, intact and normal color Lymphatic Lymphatic Findings: no adenopathy Medical Decision Making Medical Records Medical records reviewed: No I reviewed the patient's medical records. Screening: Per USPSTF and CDC recommendations, given the prevalence of disease in our region, it is our hospital?s policy to screen for HIV and viral Hepatitis for all patients aged 18 and over and those with ongoing risk factors. Wili Inquiry Pt receiving controlled substance: No Lab Data Lab results reviewed: Yes I reviewed the patient's lab results.
[2024-12-04 13:32] VITALS: BP 102/60; PULSE 89; RESP 18; TEMP 37.1; O2SAT 99; BMI 29.5
[2024-12-04 14:28] VITALS: BP 102/60; PULSE 89; RESP 12; TEMP 37.1
[2024-12-04 15:11] LABS: RSV Rapid Ab Screen Negative (Negative)
== END 2024-12-04 14:32 | disposition home or self-care (01) ==
PROVIDERS: Emergency Provider Nurse Practitioner Family; PCP Physician Assistant
DX: J01.90 Acute sinusitis, unspecified (principal)
CPT/HCPCS: 87807; 99213; G0381

== ENCOUNTER 2025-06-26 11:27 | Outpatient (CLI) | payer OTHER, SELFPAY ==
--- OUTSIDE RECORDS SUMMARY | 2025-06-27 13:58 | XMS_ITS | Clinical Summary ---
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 Role Phone Pcp, No Primary Care Provider Unavailabl e Allergies Active Allergy Reactions Criticality Noted Date Comments Amoxicillin Hives Medium 05/26/2016 Hives - has tolerated cefazolin Nifedipine Palpitations,Shortne ss of breath High 06/20/2018 Viloxazine Nausea High 10/08/2024 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 Tobacco Use Types Packs/Day Years Used Date Smoking Tobacco: Never Assessed Comments Unknown Sex and Gender Information Value Date Recorded Sex Assigned at Not on file Legal Sex Female 6:24 PM EDT Gender Identity Not on file Sexual Orientation Not on file Last Filed Vital Signs Vital Sign Reading Time Taken Comments Blood Pressure 118/77 11/05/2024 7:09 PM EST Pulse 74 11/05/2024 7:09 PM EST Temperature 36.8 C (98.2 F) 11/05/2024 3:57 PM EST Respiratory Rate 18 11/05/2024 7:09 PM EST Oxygen Saturation 97% 11/05/2024 7:09 PM EST Inhaled Oxygen Concentration - - Weight 79.4 kg (175 lb 0.7 oz) 11/05/2024 3:57 P M EST Height - - Body Mass Index - - Plan of Treatment Health Maintenance Due Date Last Done Comments [facility]-Depression Screening 1994 [facility]-HIV Screening 1994 [facility]-Hepatitis C Screening 1994 [facility]-Infant/Child/Adol SDOH Screenings 1994 [facility]-Varicella Vaccines (1 of 2 - 13+ 2-dose series) 2007 [facility]- SDOH Screenings 2012 [facility]-Adult SDOH Screenings 2012 [facility]-Hepatitis B Vaccines (1 of 3 - 19+ 3-dose series) 2013 [facility]-Pap Smear 2015 HPV Vaccines (1 - 3-dose SCDM series) 2021 OUP-MBPNU-15 Vaccine (1 - season) 2024 [facility]-Cervical Cancer Screening 2024 [facility]-HPV/Cotest 2024 [facility]-Influenza Vaccine (#1) 07/07/202509/03, 09/23/2020 [facility]-DTaP,Tdap,and Td Vaccines (2 - Td or Tdap) 06/03/2034 06/03/2024 [facility]-Zoster Vaccines (1 of 2) 2044 [facility]-HIB Vaccines Aged Out No longer e ligible based on patient's age to complete this topic [facility]-Hepatitis A Vaccines Aged Out No longer eligible based on patient's age to complete this topic [facility]-IPV Vaccines Aged Out No longer e ligible based on patient's age to complete this topic [facility]-Pneumococcal Vaccine: Pediatrics (0 to 5 Years) and At-Risk Patients (6 to 49 Years) Aged Out No longer eligible b ased on patient's age to complete this topic [facility]-Rotavirus Vaccines Aged Out No lo nger eligible based on patient's age to complete this topic Insurance 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
--- OUTSIDE RECORDS SUMMARY | 2025-06-27 13:58 | XMS_ITS | Encounter Summary ---
Author Organization Healthcare Address [address] 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 Name Role Phone Pcp, No Primary Care Provider Unavailabl e Encounter Details Date Type Department Care Team (Late st Contact Info) Description 11/05/2024 Ophth Exam [facility] [address] [place] [address] Diaz Conrad MD [address] [place], [place] [id number] 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 Tobacco Use Types Packs/Day Years Used Date Smoking Tobacco: Never Assessed Comments Unknown Sex and Gender Information Value Date Recorded Sex Assigned at Not on file Legal Sex Female 6:24 PM EDT Gender Identity Not on file Sexual Orientation Not on file documented as of this encounter Functional Status * Calculated C-SSRS Risk Score (Lifetime/Recent) Answer Date of Assessment Author No Risk Indicated 11/05/2024 6:20 PM Kylie Durham RN * Question Answer Date of Assessment Author 1. Wish to be (Past 1 Month) No 024 6:20 PM Gorge Durham, RN 2. Non-Specific Active Suici jimmie Thoughts (Past 1 Month) No 11/05/2024 6:20 PM Viktoria Durham, RN 6. Suicidal Behavior (Lifetime) No 6:20 PM Gorge Durham, RN documented as of this encounter Plan of Treatment Not on file documented as of this encounter Visit Diagnoses Not on filedocumented in this encounter Care Teams Barber Apprentice Relationship Specialty Start Date End Date Pcp, No [address] [place] [address] PCP - General Family Medicine 11/05/24 documented as of this encounter
--- OUTSIDE RECORDS SUMMARY | 2025-06-27 13:58 | XMS_ITS | Clinical Summary ---
Author Organization [facility] Address [address] [place] [id number] Phone [email or web address] Care Team Providers Care Telephone Station Installer Name Role Phone Provider, No Primary Care Provider Unavailabl e Allergies Active Allergy Reactions Criticality Noted Date Comments Amoxicillin Hives 08/30/2023 Penicillins Rash Low 05/16/2025 Medications amphetamine-dext roamphetamine XR (ADDERALL XR) 20 MG 24 hr capsule Take 20 mg by mouth 1 (one) time each day. 02/21/2025 Active Active Problems Problem Noted Date Diagnosed Date Encounter for pre-employment health screening ex amination 05/16/2025 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 Tobacco Use Types Packs/Day Years Used Date Smoking Tobacco: Never Assessed Intimate Partner Violence Answer Date R ecorded Insults You Not on file 07/05/2022 Threatens You Not on file 07/05/2022 Screams at You Not on file 07/05/2022 Physically Hurt Not on file 07/05/2022 Intimate Partner Violence Score Not on file 07/05/2022 Stress Answer Date Recorded Stress in your Life Not on file 09/11/2024 Dealing with Stress 3 09/11/2024 Comments Unknown Sex and Gender Information Value Date Recorded Sex Assigned at Not on file Legal Sex Female 12:08 AM CDT Gender Identity Not on file Sexual Orientation Not on file Last Filed Vital Signs Vital Sign Reading Time Taken Comments Blood Pressure 108/64 05/16/2025 1:12 PM EDT Pulse 86 05/16/2025 1:12 PM EDT Temperature 36.6 C (97.8 F) 05/16/2025 1:12 PM EDT Respiratory Rate 14 05/16/2025 1:12 PM EDT Oxygen Saturation 97% 05/16/2025 1:12 PM EDT Inhaled Oxygen Concentration - - Weight 82 kg (180 lb 12.8 oz) 05/16/2025 1:12 PM EDT Height 166.4 cm (5' 5.5 ) 05/16/2025 1:12 PM EDT Body Mass Index 29.63 05/16/2025 1:12 PM EDT Plan of Treatment Health Maintenance Due Date Last Done Comments Cervical Cancer Screening Combo 1994 Dental Cleaning/Exam 1994 HIV Screening 1994 HPV / Cotest 1994 Hepatitis C Screening 1994 Pap Testing 1994 HPV Immunization (1 - 2-dose series) 2005 Hep B Infection Screening - Triple Screen 2012 Hepatitis B Immunization (1 of 3 - 19+ 3-dose series) 2013 Covid-19 Immunization (1 - season) 2024 Influenza Immunization (#1) 07/07/202508/07, 09/23/2020 Annual Preventive Exam 05/16/2026 , 08/30/2023 Tetanus Diphtheria and Pertussis Immunization (2 - Td or Tdap) 06/03/2034 06/03/2024 HIB Immunization Aged Out No longer e ligible based on patient's age to complete this topic Hepatitis A Immunization Aged Out No longer eligible based on patient's age to complete this topic Pneumococcal: Ped (0 to 5 Yrs) and At-Risk Member (6 to 64 Yrs) Aged Out No longer eligible b ased on patient's age to complete this topic Polio Immunization Aged Out No longer eligible based on patient's age to complete this topic Varicella Immunization Aged Out No lo nger eligible based on patient's age to complete this topic Procedures Procedure Name Priority Date/Time Associated Diagnosis Comments SPIROMETRY WITHOUT BRONCHODILATOR Routine 05/16/2025 1:27 PM EDT Encounter for pre-employment health screening examination from Last 3 Months Results * Spirometry, Complete CPT 46972 (05/16/2025 1:27 PM EDT) FVC 3.98 liters Comment:99 FEV1 3.51 liters Comment:104 FEV1/FVC 88 % Comment:104 us Jany Shea BUHR DRESSER PFT ORDERABLES Final Result from Last 3 Months Insurance OPT OUT NO COPAY NB Care Teams Telephone Station Installer Relationship Specialty Start Date End Date Provider, KRYSTEN Glass [id number] PCP - General Manager Video 08/30/23
== END 2025-06-26 23:59 | disposition home or self-care (01) ==
LOC: LAB.DROPOF 06-27 13:57
PROVIDERS: PCP Student in an Organized Health Care Education/Training Program; Visit Provider Student in an Organized Health Care Education/Training Program
DX: R30.0 Dysuria (principal)
CPT/HCPCS: 87086; 87088; 87186

== ENCOUNTER 2025-06-29 16:58 | Observation (INO) | payer OTHER, SELFPAY ==
[2025-06-29] VITALS (11 sets, daily range): BP systolic 99–125; BP diastolic 73–94; PULSE 68–86; RESP 14–18; TEMP 36.6–37.1; O2SAT 95–100; BMI 29.0
--- NOTE | 2025-06-29 17:27 | ED_ITS ---
<Statement entered by Rosales Venegas MD - 06/29/25 22:59> I was consulted by the TATIANA, and we discussed the complexity of the problems being addressed. I approved the treatment and management plan for this patient's care in the emergency department, thus performing a substantive portion of the medical decision making. Rosales Venegas MD, RADHA, FACEP Discharge Plan Disposition Patient Disposition: Admitted Clinical Impressions Clinical Impression: Urinary tract infection Discharge ED Provider: Rosales Venegas General Adult HPI General Chief complaint: Urogenital-Female Stated complaint: sent by [facility] care UTI, antibiotics not working Time Seen by Provider: 06/29/25 17:21 History of Present Illness HPI narrative: 29-year-old female presents to the ED today for complaint of her Macrobid not working. She got this from the [facility] or Monday. She says typically her antibiotic has worked within the first day or 2 she takes it but this 1 is not working. She says she can feel some low pelvic pressure. She has had trouble with stones in the past as well. She has no nausea, vomiting or diarrhea no other symptoms. Related Data Home Medications ?Medication ?Instructions ?Recorded ?Confirmed dextroamphetamine-amphetamine ER 20 mg PO DAILY 06/29/25 20 mg 24hr capsule,extend release (Adderall XR) Previous Rx's ?Medication ?Instructions ?Recorded rizatriptan 10 mg disintegrating 10 mg PO ONCE PRN yuri lucero 10/17/24 tablet headache #10 tabs desvenlafaxine succinate 50 mg 50 mg PO DAILY #30 tabs 05/20/25 tablet,extended release 24 hr (Pristiq) Allergies Allergy/AdvReac Type Severity Reaction Status Date / Time amoxicillin Allergy Hives Verified 06/26/25 11:36 viloxazine (From Qelbree) AdvReac Intermediate Nausea Verified 06/26/25 11:36 [facility] Disclaimer: The information contained in this section may have been updated after the patient was seen, as this information can be updated by other users. 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 Request for sterilization Left carpal tunnel syndrome Asymptomatic Status post normal vaginal delivery H/O nephrolithotomy with removal of calculi Marijuana use during Vulvar pruritus Vaginal discharge during Screening for genetic disease carrier status 01/24/24 - Horizon carrier screen negative for 4 conditions tested - CF, Fragile X, SMA and DMD Anxiety during History of kidney stones Attention Deficit Hyperactivity Disorder (ADHD) Spontaneous miscarriage History of delivery G1 33 wks, first Bipolar disorder Depression Anxiety Carpal tunnel syndrome Surgical History Hx of tubal ligation History of ureter stent History of lithotripsy Family History Other FHx: mental illness Family history of heart disease Hypertension Stroke 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 (Updated 06/29/25 @ 20:20 by Tami Sam RN) Smoking Status: Current every day smoker tobacco type: e-cigarettes second hand exposure: Yes alcohol intake: never substance use type: denies use, marijuana and amphetamines current occupational status: unemployed Travel in the last 8 weeks?: None marital status: number of children: 3 do you feel safe at home: Yes victim of physical abuse: No victim of emotional abuse: No victim of sexual abuse: No Have you lived/traveled outside US in past 30 days?: No Contact w/someone who lives/traveled outside US past 30 days?: No Exposure to someone with infectious disease in past 14 days?: No Do you have a fever (greater than 100.4 F or 38 C)?: No Have you tested positive for COVID-19?: No Exposed to someone with COVID-19 in past 14 days?: No Do you have a sore throat?: No Do you have a cough?: No Do you have any weakness?: No Do you have any diarrhea?: No Are you experiencing any unusual bleeding?: No Do you have any muscle aches/pain?: No Do you have any abdominal pain?: No Are you experiencing loss of taste or smell?: No Other 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 Have you received the Flu Vaccine for this season: No Have you received the Pneumonia Vaccine: No ROS Obtained: Yes Systems reviewed as appropriate & no additional complaints except as documented Constitutional Constitutional: Reports as per HPI Physical Exam General General appearance: alert and in no apparent distress Head Head exam: atraumatic and normocephalic Eye Eye exam: Present PERRL and EOMI ENT ENT exam: Present normal oropharynx and mucous membranes moist Neck Neck exam: Present full ROM and trachea midline Respiratory Respiratory exam: Present normal lung sounds bilaterally Cardiovascular Cardiovascular exam: Present regular rate, normal rhythm, normal heart sounds, +S1 and +S2 Abdominal Exam Abdominal exam: Present soft and normal bowel sounds Abdominal tenderness: Present suprapubic and mild Extremities Exam Extremities exam: Present normal inspection, full ROM and normal capillary refill Back Exam Back exam: Present normal inspection Neurological Exam Neurological exam: Present alert and oriented X3 Skin Skin exam: Present warm, dry and intact Medical Decision Making Medical Records Screening: Per USPSTF and CDC recommendations, given the prevalence of disease in our region, it is our hospital?s policy to screen for HIV and viral Hepatitis for all patients aged 18 and over and those with ongoing risk factors. Wili Inquiry Pt receiving controlled substance: No Wili was queried for this patient: No Vital Signs: 06/29/25 17:00 06/29/25 17:24 06/29/25 17:30 Temperature 98.7 F Temperature Source Oral Pulse Rate 76 68 Pulse Rate [Radial] 76 Respiratory Rate 18 Blood Pressure 125/80 122/80 Blood Pressure [Right Arm] 125/80 Blood Pressure Mean [Right Arm] 95 Blood Pressure Source [Right Arm] Automatic Cuff Blood Pressure Position Blood Pressure Position [Right Arm] Sitting 02 Sat by Pulse Oximetry 99 98 100 Oxygen Delivery Method Room Air 06/29/25 17:59 06/29/25 18:00 06/29/25 18:30 Temperature Temperature Source Pulse Rate 84 68 78 Pulse Rate [Radial] Respiratory Rate Blood Pressure 111/80 111/80 99/73 L Blood Pressure [Right Arm] Blood Pressure Mean [Right Arm] Blood Pressure Source [Right Arm] Blood Pressure Position Blood Pressure Position [Right Arm] 02 Sat by Pulse Oximetry 99 99 98 Oxygen Delivery Method 06/29/25 19:00 06/29/25 19:30 06/29/25 19:53 Temperature 97.8 F Temperature Source Oral Pulse Rate 74 72 75 Pulse Rate [Radial] Respiratory Rate 18 Blood Pressure 117/84 109/73 L 109/73 L Blood Pressure [Right Arm] Blood Pressure Mean [Right Arm] Blood Pressure Source [Right Arm] Blood Pressure Position Supine Blood Pressure Position [Right Arm] 02 Sat by Pulse Oximetry 95 96 Oxygen Delivery Method Room Air Lab Data Lab Results 06/29/25 17:25: Urine Color Yellow, Urine Appearance Clear, Urine pH 7.0, Ur Specific [place] 1.025, Urine Protein 3+ A, Urine Glucose (UA) Trace, Urine Ketones Trace, Urine Blood 3+ A, Urine Nitrate Positive A, Urine Bilirubin 1+ A, Urine Urobilinogen 4.0, Ur Leukocyte Esterase 2+ A, Urine RBC 20-50, Urine WBC 5-10, Ur Squamous Epith Cells Occasional, Urine Bacteria 1+ 06/29/25 18:51: WBC Cancelled 06/29/25 18:51: WBC 14.3 H, Corrected WBC Cancelled, RBC Cancelled 06/29/25 18:51: RBC 4.57, Hgb Cancelled 06/29/25 18:51: Hgb 14.2, Hct Cancelled 06/29/25 18:51: Hct 41.5, MCV Cancelled 06/29/25 18:51: MCV 90.8, MCH Cancelled 06/29/25 18:51: MCH 31.1, MCHC Cancelled 06/29/25 18:51: MCHC 34.2, RDW Cancelled 06/29/25 18:51: RDW 12.4, Plt Count Cancelled 06/29/25 18:51: Plt Count 306, MPV Cancelled 06/29/25 18:51: MPV 10.4, Neut % (Auto) Cancelled 06/29/25 18:51: Neut % (Auto) 74.9, Lymph % (Auto) Cancelled 06/29/25 18:51: Lymph % (Auto) 17.6, [place] % (Auto) Cancelled 06/29/25 18:51: [place] % (Auto) 5.9, Eos % (Auto) Cancelled 06/29/25 18:51: Eos % (Auto) 0.8, Baso % (Auto) Cancelled 06/29/25 18:51: Baso % (Auto) 0.5, Neut # (Auto) Cancelled 06/29/25 18:51: Neut # (Auto) 10.7 H, Lymph # (Auto) Cancelled 06/29/25 18:51: Lymph # (Auto) 2.5, [place] # (Auto) Cancelled 06/29/25 18:51: [place] # (Auto) 0.9, Eos # (Auto) Cancelled 06/29/25 18:51: Eos # (Auto) 0.1, Baso # (Auto) Cancelled 06/29/25 18:51: Baso # (Auto) 0.1, Sodium 140, Potassium 3.9, Chloride 107, Carbon Dioxide 25, Anion Gap 11.9, BUN 12, Creatinine 0.80, Estimated Creat Clear 133, Estimated GFR 84, Est GFR ( Amer) 102, Glucose 93, Calcium 9.5, Magnesium 1.8, Total Bilirubin 0.5, AST 29, ALT 23, Alkaline Phosphatase 85, Total Protein 8.0, Albumin 4.7, Globulin 3.3 H, Albumin/Globulin Ratio 1.4, Lipase 35 06/29/25 18:51 06/29/25 18:51 Orders (Tests/Meds): ED MEDICATIONS Generic Name Dose Route Start Last Admin Trade Name Freq PRN Reason Stop Dose Admin Acetaminophen 650 mg 06/29/25 19:42 Acetaminophen 325mg Tab PO 07/29/25 19:41 Q4HP PRN Fever or Mild Pain (1-3) Sodium Chloride 1,000 mls @ 100 mls/hr 06/29/25 19:45 06/29/25 20:29 Sod Chlor 0.9% 1000ml Bag IV 07/29/25 19:44 100 mls/hr .Q10H JOSE Administration Linezolid 600 mg in 300 mls @ 300 mls/hr 06/29/25 22:15 Zyvox 600mg/300ml Premix Bag IV 06/29/25 23:14 ONCE ONE Ketorolac Tromethamine 15 mg 06/29/25 19:42 06/29/25 20:35 Ketorolac 30mg/Ml Vial IV 07/04/25 19:41 15 mg Q6HP PRN Administration Moderate Pain (4-6) Discontinued Medications Generic Name Dose Route Start Last Admin Trade Name Freq PRN Reason Stop Dose Admin Phenazopyridine HCl 200 mg 06/29/25 18:16 06/29/25 18:59 Phenazopyridine 200mg Tablet PO 06/29/25 18:17 200 mg ONCE ONE Administration ORDERS Category Date Time Status Consult to Case Management [CONS] Routine Cons 06/29/25 19:42 Active Basic Metabolic Panel AMLAB Lab 06/30/25 06:00 Ordered Complete Blood Count Auto Diff AMLAB Lab 06/30/25 06:00 Ordered Complete Blood Count Auto Diff Routine Lab 06/29/25 18:51 Completed Comprehensive Metabolic Panel Stat Lab 06/29/25 18:51 Completed Lactic Acid Stat Lab 06/29/25 18:44 Ordered Lipase Stat Lab 06/29/25 18:51 Completed Magnesium Stat Lab 06/29/25 18:51 Completed Urinalysis and Microscopic Stat Lab 06/29/25 17:25 Completed Blood Culture Stat Micro 06/29/25 18:51 Received Urine Culture Stat Micro 06/29/25 17:25 Received Medical Decision Narrative: patient is a 29-year-old female presenting to the emergency department for evaluation of dysuria. Patient is hemodynamically stable and nontoxic-appearing upon arrival, afebrile. Differential diagnosis includes UTI, kidney stone, among others. Workup will be conducted with hematologic labs. Discussed with pharmacy on-call who is Kevin who says we do have IV linezolid in-house. We just need to get electrician powerhouse Moustapha to get the pharmacy to give it to patient. Patient will be admitted to hospital for IV medication. Accepted per hospital medicine Critical Care Critical Care Time Critical Care Time: No
--- OUTSIDE RECORDS SUMMARY | 2025-06-29 17:31 | XMS_ITS | Clinical Summary ---
Author Organization [facility] Address [facility] [place] [address] Care Team Providers Care Client Relations Associate Name Role Phone Pcp, No Primary Care [...] Vaccines (1 - 3-dose SCDM series) 2021 [id number] Vaccine (1 - season) 2024 UKY-Cervical Cancer [...] patient's age to complete this topic Insurance [facility] MEDICAID Care Teams Client Relations Associate Relationship Specialty Start Date End Date Pcp, No [address] [place] [address] PCP - General Family Medicine 11/05/24
--- OUTSIDE RECORDS SUMMARY | 2025-06-29 17:31 | XMS_ITS | Clinical Summary ---
Author Organization [facility] Address [address] [place] [id number] Phone [email or web address] Care Team Providers Care Registered Public Health Nurse Name Role Phone Provider, No Primary Care [...] 3 Months Results * Spirometry, Complete CPT 48902 (05/16/2025 1:27 PM EDT) FVC 3.98 liters Comment:99 FEV1 3.51 liters Comment:104 FEV1/FVC 88 % Comment:104 us Jany Shea SENIOR UI UX DESIGNER PFT ORDERABLES Final Result from Last 3 Months Insurance OPT OUT NO COPAY NB Care Teams Registered Public Health Nurse Relationship Specialty Start Date End Date Provider, KRYSTEN Glass [id number] PCP - General Cut Off Tender Glass 08/30/23
--- OUTSIDE RECORDS SUMMARY | 2025-06-29 17:31 | XMS_ITS | Encounter Summary ---
Author Organization [facility] Address [address] [place] [address] Care Team Providers Care Signs Cleaner Name Role Phone Pcp, No Primary Care Provider Unavailabl e Encounter Details Date Type Department Care Team (Late st Contact Info) Description 11/05/2024 Ophth Exam [facility] [address] [place] [address] Diaz Conrad MD [address] [place], [place] [id number] 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 Tobacco Use Types Packs/Day Years [...] on filedocumented in this encounter Care Teams Signs Cleaner Relationship Specialty Start Date End Date Pcp, No [address] [place] [address] PCP - General Family Medicine 11/05/24 documented as of this encounter
[2025-06-29 17:37] LABS: Microscopic, Urine URINE MICROSCOPIC (MICROSCOPIC)
[2025-06-29 17:38] LABS: Color,Urine YELLOW (Yellow); Glucose,Urine (UA) TRACE (Negative); Ketones,Urine TRACE (Negative); Leukocyte Esterase,Urine 2+ (Negative); PH,Urine 7.0 (5.0-8.5); Protein,Urine 3+ (Negative); Specific Gravity, Urine 1.025 (1.005-1.030); Urobilinogen,Urine 4.0 EU/dl (0.2)
[2025-06-29 17:57] LABS: Bilirubin,Urine 1+ (Negative)
[2025-06-29 18:26] LABS: Bacteria,Urine 1+ /lpf; RBC,Urine 20-50 #/hpf (0-3); Squamous Epithelial Cell,Urine Occasional #/hpf (0-5)
[2025-06-29] MEDS: PHENAZOPYRIDINE 200MG TABLET 200 MG PO (18:59)
[2025-06-29 19:10] LABS: Albumin Level 4.7 g/dl (3.5-5.0); Chloride 107 mmol/L (98-107)
[2025-06-29 19:11] LABS: Potassium 3.9 mmoL/L (3.5-5.1); Sodium 140 mmol/L (136-145)
[2025-06-29 19:15] LABS: Alanine Aminotransferase 23 U/L (12-78); Albumin/Globulin Ratio 1.4 (1.1-1.8); Alkaline Phosphatase 85 U/L (38-126); Anion Gap 11.9 mEq/L (5-15); Aspartate Amino Transferase 29 U/L (14-36); Bilirubin,Total 0.5 mg/dl (0.2-1.3); Blood Urea Nitrogen 12 mg/dl (7-17); Calcium 9.5 mg/dl (8.4-10.2); Carbon Dioxide 25 mmol/L (22.0-30.0); Creatinine Clearance Estimated 133 mL/min (50-200); Creatinine,Serum 0.80 mg/dl (0.52-1.04); Estimated Glomerular Filt Rate 84 ml/min (>60); GFR (African American) 102 ML/MIN (>60); Globulin 3.3 g/dL (1.3-3.2); Glucose 93 mg/dl (74-100); Lipase 35 U/L (23-300); Magnesium 1.8 mg/dl (1.6-2.3); Total Protein,Serum 8.0 g/dl (6.3-8.2)
[2025-06-29 19:23] LABS: Hematocrit 41.5 % (37.0-47.0); Hemoglobin 14.2 g/dL (12.2-16.2); Immature Granulocytes % 0.3 %; Mean Corpuscular HGB Conc 34.2 g/dL (31.8-35.4); Mean Corpuscular Hemoglobin 31.1 pg (27.0-31.2); Mean Corpuscular Volume 90.8 fl (81-99); Nucleated Red Blood Cells % 0 %; Platelet Count 306 K/mm3 (142-424); Red Blood Count 4.57 M/mm3 (4.20-5.40); Red Cell Distribution Width-SD 40.9 fL; White Blood Count 14.3 K/mm3 (4.8-10.8)
--- NOTE | 2025-06-29 20:22 | P.HP_ITS ---
<Statement entered by Syed Khan MD - 07/02/25 15:39> Personally evaluated patient and agree with the plan of care as outlined by the WAREHOUSE INVENTORY CLERK. History of Present Illness *Admission Date: 06/29/25 *Reason for visit:: Urinary tract infection *History of present illness: This is a very pleasant 29-year-old female with past medical history of bipolar disorder, anxiety and depression who presents emergency department today with complaints of suprapubic pain. She reports waking up on feeling discomfort in her pelvic region but no actual dysuria. Does not have a significant history of urinary tract infections but states when she does get them she gets very sick. She was seen in the walk-in clinic and received nitrofurantoin for her urinary tract infection. Presents back today with complaints of continued pain despite antibiotic therapy. Culture data available and appears to be MDRO with sensitivities only to daptomycin and gentamicin. ED provider did speak with pharmacy who states linezolid would be a good option but unable to secure oral dosing in the outpatient setting. Linezolid IV is on restriction here but is able to get a dose after consult with pharmacy. Given that she is admitted for IV linezolid and further evaluation to secure oral dosing of medication for urine culture. [facility] Disclaimer: The information contained in this section may have been updated after the patient was seen, as this information can be updated by other users. 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 Request for sterilization Left carpal tunnel syndrome Asymptomatic Status post normal vaginal delivery H/O nephrolithotomy with removal of calculi Marijuana use during Vulvar pruritus Vaginal discharge during Screening for genetic disease carrier status 01/24/24 - Horizon carrier screen negative for 4 conditions tested - CF, Fragile X, SMA and DMD Anxiety during History of kidney stones Attention Deficit Hyperactivity Disorder (ADHD) Spontaneous miscarriage History of delivery G1 33 wks, first Bipolar disorder Depression Anxiety Carpal tunnel syndrome Surgical History Hx of tubal ligation History of ureter stent History of lithotripsy Family History Other FHx: mental illness Family history of heart disease Hypertension Stroke 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 (Updated 08/24/25 @ 20:20 by Tami Sam RN) Smoking Status: Current every day smoker tobacco type: e-cigarettes second hand exposure: Yes alcohol intake: never substance use type: denies use, marijuana and amphetamines current occupational status: unemployed Travel in the last 8 weeks?: None marital status: number of children: 3 do you feel safe at home: Yes victim of physical abuse: No victim of emotional abuse: No victim of sexual abuse: No Have you lived/traveled outside US in past 30 days?: No Contact w/someone who lives/traveled outside US past 30 days?: No Exposure to someone with infectious disease in past 14 days?: No Do you have a fever (greater than 100.4 F or 38 C)?: No Have you tested positive for COVID-19?: No Exposed to someone with COVID-19 in past 14 days?: No Do you have a sore throat?: No Do you have a cough?: No Do you have any weakness?: No Do you have any diarrhea?: No Are you experiencing any unusual bleeding?: No Do you have any muscle aches/pain?: No Do you have any abdominal pain?: No Are you experiencing loss of taste or smell?: No Other 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 Have you received the Flu Vaccine for this season: No Have you received the Pneumonia Vaccine: No Review of Systems Review of Systems Review of systems:: pertinent systems reviewed and negative unless documented below Review of systems (narrative): Negative except for HPI Meds Home Medications and Allergies Home Medications ?Medication ?Instructions ?Recorded ?Confirmed ?Type dextroamphetamine-amphetamine ER 20 mg PO DAILY 06/29/25 History 20 mg 24hr capsule,extend release (Adderall XR) rizatriptan 10 mg disintegrating 10 mg PO ONCE PRN [facility] 10/17/24 06/29/25 Rx tablet headache #10 tabs desvenlafaxine succinate 50 mg 50 mg PO DAILY #30 tabs 05/20/25 06/29/25 Rx tablet,extended release 24 hr (Pristiq) New Prescriptions to Start Prescriptions: Allergies Allergy/AdvReac Type Severity Reaction Status Date / Time amoxicillin Allergy Hives Verified 06/26/25 11:36 viloxazine (From Qelbree) AdvReac Intermediate Nausea Verified 06/26/25 11:36 Exam Data for Last 24 hours Vital signs and Labs for Last 24 Hours: Temp Pulse Resp BP Pulse Ox O2 Del Method 98.8 F 86 14 124/94 H 98 Room Air 06/29/25 20:00 06/29/25 20:00 06/29/25 20:00 06/29/25 20:00 06/29/25 20:00 06/29/25 20:00 Laboratory Results - last 24 hr 06/29/25 17:25: Urine Color Yellow, Urine Appearance Clear, Urine pH 7.0, Ur Specific [place] 1.025, Urine Protein 3+ A, Urine Glucose (UA) Trace, Urine Ketones Trace, Urine Blood 3+ A, Urine Nitrate Positive A, Urine Bilirubin 1+ A, Urine Urobilinogen 4.0, Ur Leukocyte Esterase 2+ A, Urine RBC 20-50, Urine WBC 5-10, Ur Squamous Epith Cells Occasional, Urine Bacteria 1+ 06/29/25 18:51: WBC Cancelled 06/29/25 18:51: WBC 14.3 H, Corrected WBC Cancelled, RBC Cancelled 06/29/25 18:51: RBC 4.57, Hgb Cancelled 06/29/25 18:51: Hgb 14.2, Hct Cancelled 06/29/25 18:51: Hct 41.5, MCV Cancelled 06/29/25 18:51: MCV 90.8, MCH Cancelled 06/29/25 18:51: MCH 31.1, MCHC Cancelled 06/29/25 18:51: MCHC 34.2, RDW Cancelled 06/29/25 18:51: RDW 12.4, Plt Count Cancelled 06/29/25 18:51: Plt Count 306, MPV Cancelled 06/29/25 18:51: MPV 10.4, Neut % (Auto) Cancelled 06/29/25 18:51: Neut % (Auto) 74.9, Lymph % (Auto) Cancelled 06/29/25 18:51: Lymph % (Auto) 17.6, [place] % (Auto) Cancelled 06/29/25 18:51: [place] % (Auto) 5.9, Eos % (Auto) Cancelled 06/29/25 18:51: Eos % (Auto) 0.8, Baso % (Auto) Cancelled 06/29/25 18:51: Baso % (Auto) 0.5, Neut # (Auto) Cancelled 06/29/25 18:51: Neut # (Auto) 10.7 H, Lymph # (Auto) Cancelled 06/29/25 18:51: Lymph # (Auto) 2.5, [place] # (Auto) Cancelled 06/29/25 18:51: [place] # (Auto) 0.9, Eos # (Auto) Cancelled 06/29/25 18:51: Eos # (Auto) 0.1, Baso # (Auto) Cancelled 06/29/25 18:51: Baso # (Auto) 0.1, Sodium 140, Potassium 3.9, Chloride 107, Carbon Dioxide 25, Anion Gap 11.9, BUN 12, Creatinine 0.80, Estimated Creat Clear 133, Estimated GFR 84, Est GFR ( Amer) 102, Glucose 93, Calcium 9.5, Magnesium 1.8, Total Bilirubin 0.5, AST 29, ALT 23, Alkaline Phosphatase 85, Total Protein 8.0, Albumin 4.7, Globulin 3.3 H, Albumin/Globulin Ratio 1.4, Lipase 35 I & O for Last 24 hours: Intake & Output 06/26/25 06/27/25 06/28/25 06/29/25 23:59 23:59 23:59 23:59 Weight 81.647 kg Constitutional Constitutional: no acute distress *Routine HEENT Exam Head: Present normocephalic Eye: Present EOMI and PERRL ENT: Present mucous membranes moist *Routine Neck Exam Neck: Present supple; Absent lymphadenopathy *Routine Respiratory Exam Respiratory: Present CTA bilaterally *Routine Cardiovascular Exam Cardiovascular: Present RRR *Routine Abdominal Exam Abdominal: Present soft and normoactive bowel sounds; Absent tenderness *Routine Rectal Exam Rectal:: deferred *Routine Genitalia Exam Genitalia:: deferred *Routine Extremities Exam Extremities: Absent cyanosis, clubbing or edema *Routine Skin Exam Skin: Present warm; Absent rash *Routine Neurological Exam Neurological: Present alert and oriented X3 Assessment and Plan *Assessment and plan (1) Urinary tract infection: Status: Acute Category: Medical Code(s): N39.0 - Urinary tract infection, site not specified (2) Bipolar disorder: Status: Chronic Qualifiers: Active/Remission status: currently active Current bipolar episode type: depressed Current episode severity: moderate Qualified Code(s): F31.32 - Bipolar disorder, current episode depressed, moderate Category: Medical Code(s): F31.9 - Bipolar disorder, unspecified (3) Depression: Status: Chronic Qualifiers: Depression Type: major depressive disorder Major depression recurrence: single episode Active/Remission status: currently active Major depression episode severity: mild Qualified Code(s): F32.0 - Major depressive disorder, single episode, mild Category: Medical Code(s): F32.A - Depression, unspecified (4) Anxiety: Status: Chronic Category: Medical Code(s): F41.9 - Anxiety disorder, unspecified Plan #Acute cystitis Nitrite positive with pyuria and bacteria Urine culture data notable for greater than 100,000 CFU's of Enterococcus faecalis Resistant to ampicillin and penicillin, sensitive to Dapto and gentamicin Per pharmacy, linezolid is a good option as well. on restricted medication list here but pharmacy did approve IV dosing. Continue 600 mg every 12 IV dosing with pharmacy consult Case management consulted for possible preop for oral dosing in the outpatient setting versus other oral options White blood cell count of 14. Otherwise stable. #Anxiety and depression Start home medications once reconciled
[2025-06-29] MEDS: 0.9 % SODIUM CHLORIDE 1000ML 1,000 ML 100 ML IV (20:29)
[2025-06-29] MEDS: KETOROLAC 30MG/ML VIAL 15 MG IV (20:35)
[2025-06-29] MEDS: LINEZOLID 600 MG/300 ML IV.SOLN 300 MG IV (21:00)
[2025-06-30] VITALS: BP 104/50; PULSE 68; RESP 12; TEMP 36.3; O2SAT 96
--- NOTE | 2025-06-30 03:30 | PC.NURSE ---
06/29/25 2200: Pt. was admitted to Med/Surg unit this evening for UTI IV antibiotics. Pt. was in the urgent care 06/26/25 and was diagnosed with UTI. Pt was prescribed an antibiotic. After taking the antibiotics for a couple of days the symptoms of UTI got worse. a urine culture was done of urine from 06/26/25 and was positive for MDRO with sensitivity to Daptomycin and Gentamycin. Pharmacy was contacted in the ED and pharmacy suggested Linezolid . Unable to get oral Linezolid this evening Pt. was admitted for IV dose. Pt. arrived to the floor with the Linezolid dose to be given. Order for the Linezolid was not in the system. I spoke with Heather Hyman APRN she verified the Linezolid bag and IV dose. She was not able to put the order in the system that was pharmacy because Linezolid is a restricted antibiotic. After patient was settled I contacted [facility] pharmacy and spoke to Katarzyna . She verified the rate the Linezolid was supposed to run in. Linezolid dose again verified with Patsy Sam furnace charger RN and started the Linezolid infusion of 600mg /300 ml to run in over one hour at 300 ml/hr. Pt. tolerated IV dose well.
[2025-06-30 03:41] LABS: Urine Pregnancy, HCG Qual. Negative (Negative)
[2025-06-30 04:00] VITALS: BP 104/50; PULSE 68; RESP 12; TEMP 36.3; O2SAT 96; BMI 29.6
--- NOTE | 2025-06-30 05:26 | PC.NURSE ---
Pt. is alert and orientated x 4. Pt. is on room air. Pt. sleeping well. Pt. did c/o dysuria, urgency and frequency. Pt. medicated per JAN. Pt. felt much better after being medicated,. IV fluids infusing. Pt. got a dose of IV antibiotics and tolerated well. Personal items and call owens in reach. Bed in low and locked position. safety measures in place.
[2025-06-30] MEDS: 0.9 % SODIUM CHLORIDE 1000ML 1,000 ML 100 ML IV ×2 (06:21→17:16)
[2025-06-30 06:23] LABS: Hematocrit 39.5 % (37.0-47.0); Hemoglobin 13.2 g/dL (12.2-16.2); Immature Granulocytes % 0.1 %; Mean Corpuscular HGB Conc 33.4 g/dL (31.8-35.4); Mean Corpuscular Hemoglobin 30.9 pg (27.0-31.2); Mean Corpuscular Volume 92.5 fl (81-99); Nucleated Red Blood Cells % 0 %; Platelet Count 263 K/mm3 (142-424); Red Blood Count 4.27 M/mm3 (4.20-5.40); Red Cell Distribution Width-SD 42.6 fL; White Blood Count 7.8 K/mm3 (4.8-10.8)
[2025-06-30 06:33] LABS: Chloride 109 mmol/L (98-107); Potassium 3.9 mmoL/L (3.5-5.1); Sodium 141 mmol/L (136-145)
[2025-06-30 06:36] LABS: Anion Gap 10.9 mEq/L (5-15); Blood Urea Nitrogen 13 mg/dl (7-17); Calcium 8.4 mg/dl (8.4-10.2); Carbon Dioxide 25 mmol/L (22.0-30.0); Creatinine Clearance Estimated 133 mL/min (50-200); Creatinine,Serum 0.80 mg/dl (0.52-1.04); Estimated Glomerular Filt Rate 84 ml/min (>60); GFR (African American) 102 ML/MIN (>60); Glucose 100 mg/dl (74-100)
[2025-06-30 08:00] VITALS: BP 105/69; PULSE 67; RESP 16; TEMP 36.8; O2SAT 97
--- NOTE | 2025-06-30 08:25 | P.CONPHA_ITS ---
Pharmacy Consult Date: 06/30/25 Time: 08:25 Referring provider: DR. QUINONES Reason for Consult:: GENTAMICIN DOSING Allergies Allergy/AdvReac Type Severity Reaction Status Date / Time amoxicillin Allergy Hives Verified 06/26/25 11:36 [facility] AdvReac Intermediate Nausea Verified 06/26/25 11:36 Home Medications ?Medication ?Instructions ?Recorded ?Confirmed ?Type desvenlafaxine succinate 50 mg 50 mg PO DAILY #30 tabs 05/20/25 06/29/25 Rx tablet,extended release 24 hr (Pristiq) atomoxetine 40 mg capsule 40 mg PO DAILY 06/30/2506/07 History rizatriptan 10 mg disintegrating 10 mg PO DAILYP PRN m igraine 06/30/25 06/30/25 History tablet headache New Prescriptions to Start Prescriptions: Height: 1.68 m Weight: 83.7 kg Laboratory Results:: Laboratory Results - last 24 hr 06/29/25 17:25: Urine Color Yellow, Urine Appearance Clear, Urine pH 7.0, Ur Specific [place] 1.025, Urine Protein 3+ A, Urine Glucose (UA) Trace, Urine Ketones Trace, Urine Blood 3+ A, Urine Nitrate Positive A, Urine Bilirubin 1+ A, Urine Urobilinogen 4.0, Ur Leukocyte Esterase 2+ A, Urine RBC 20-50, Urine WBC 5-10, Ur Squamous Epith Cells Occasional, Urine Bacteria 1+ 06/29/25 17:35: Urine HCG, Qual Negative 06/29/25 18:51: WBC Cancelled 06/29/25 18:51: WBC 14.3 H, Corrected WBC Cancelled, RBC Cancelled 06/29/25 18:51: RBC 4.57, Hgb Cancelled 06/29/25 18:51: Hgb 14.2, Hct Cancelled 06/29/25 18:51: Hct 41.5, MCV Cancelled 06/29/25 18:51: MCV 90.8, MCH Cancelled 06/29/25 18:51: MCH 31.1, MCHC Cancelled 06/29/25 18:51: MCHC 34.2, RDW Cancelled 06/29/25 18:51: RDW 12.4, Plt Count Cancelled 06/29/25 18:51: Plt Count 306, MPV Cancelled 06/29/25 18:51: MPV 10.4, Neut % (Auto) Cancelled 06/29/25 18:51: Neut % (Auto) 74.9, Lymph % (Auto) Cancelled 06/29/25 18:51: Lymph % (Auto) 17.6, [place] % (Auto) Cancelled 06/29/25 18:51: [place] % (Auto) 5.9, Eos % (Auto) Cancelled 06/29/25 18:51: Eos % (Auto) 0.8, Baso % (Auto) Cancelled 06/29/25 18:51: Baso % (Auto) 0.5, Neut # (Auto) Cancelled 06/29/25 18:51: Neut # (Auto) 10.7 H, Lymph # (Auto) Cancelled 06/29/25 18:51: Lymph # (Auto) 2.5, [place] # (Auto) Cancelled 06/29/25 18:51: [place] # (Auto) 0.9, Eos # (Auto) Cancelled 06/29/25 18:51: Eos # (Auto) 0.1, Baso # (Auto) Cancelled 06/29/25 18:51: Baso # (Auto) 0.1, Sodium 140, Potassium 3.9, Chloride 107, Carbon Dioxide 25, Anion Gap 11.9, BUN 12, Creatinine 0.80, Estimated Creat Clear 133, Estimated GFR 84, Est GFR ( Amer) 102, Glucose 93, Calcium 9.5, Magnesium 1.8, Total Bilirubin 0.5, AST 29, ALT 23, Alkaline Phosphatase 85, Total Protein 8.0, Albumin 4.7, Globulin 3.3 H, Albumin/Globulin Ratio 1.4, Lipase 35 06/30/25 05:40: WBC 7.8 D, RBC 4.27, Hgb 13.2, Hct 39.5, MCV 92.5, MCH 30.9, MCHC 33.4, RDW 12.6, Plt Count 263, MPV 10.4, Neut % (Auto) 49.7, Lymph % (Auto) 40.7, [place] % (Auto) 7.4, Eos % (Auto) 1.7, Baso % (Auto) 0.4, Neut # (Auto) 3.9, Lymph # (Auto) 3.2, [place] # (Auto) 0.6, Eos # (Auto) 0.1, Baso # (Auto) 0.0, Sodium 141, Potassium 3.9, Chloride 109 H, Carbon Dioxide 25, Anion Gap 10.9, BUN 13, Creatinine 0.80, Estimated Creat Clear 133, Estimated GFR 84, Est GFR ( Amer) 102, Glucose 100, Calcium 8.4 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: 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 (Updated 06/29/25 @ 18:16 by Carol Walsh (ED), LOG MARKER) Request for sterilization Left carpal tunnel syndrome Status post normal vaginal delivery H/O nephrolithotomy with removal of calculi Marijuana use during Vulvar pruritus Vaginal discharge during Screening for genetic disease carrier status Anxiety during History of kidney stones Attention Deficit Hyperactivity Disorder (ADHD) Spontaneous miscarriage History of delivery Bipolar disorder Depression Anxiety Carpal tunnel syndrome Assessment and Plan Assessment and plan all Dx Assessment and Plan for all problems:: Pharmacokinetic dosing service Objective: Patient: Floor: Age: 29 yo Serum creatinine: 0.80 mg/dL Height: 66.1 Inches Weight (kg): 83.7 Assessment: IBW (kg): 59.53 Dosing wt(kg): 69.2 Estimated Creatinine clearance (ml/min): 96.6 CRCL method: Cockcroft and Gault using ibw(default). Drug selected: Gentamicin Loading dose (mg): 0 Vd (liters): 20.8 (factor used: 0.3 L/kg) Waldemar (hr-1): 0.297 Half life (hrs): 2.33 Recommended dose: 400 mg Interval: 24 hrs Infusion time (hrs): 1 Predicted peak (mcg/mL): 16.7 Predicted trough (mcg/mL): 0.02 Recommendations: Give Gentamicin 400 mg q 24 hrs with an expected Cpeak of 16.7 mcg/ml and an expected Ctrough of 0.02 mcg/ml Thank you for the consult, will continue to follow. -ADELIA WARDD
[2025-06-30] MEDS: GENTAMICIN SULFATE 400 MG in 0.9 % SODIUM CHLORIDE 100 ML 110 MG IV (08:49)
--- NOTE | 2025-06-30 14:27 | EXP.ACUTE.PN ---
Subjective *Date: 06/30/25 *Time: 14:27 Interval history: Patient doing well this morning, sitting up in bed. States she has minimal abdominal pain today. Denies dysuria, urinary frequency, urinary burning. Patient receiving IV gentamicin, culture on 06/26/2025 positive for Enterococcus faecalis sensitive to gentamicin. Medical Exam Vital signs and Labs for Last 24 Hours: Vital Signs Temp Pulse Pulse Resp BP BP Pulse Ox 06/30/25 13:00 06/30/25 11:00 06/30/25 09:00 06/30/25 08:00 06/30/25 08:00 98.3 F 67 16 105/69 L 97 06/30/25 07:00 06/30/25 05:00 06/30/25 04:00 97.4 F L 68 12 104/50 L 96 06/30/25 03:00 06/30/25 01:00 06/30/25 00:00 97.4 F L 68 12 104/50 L 96 06/29/25 23:00 06/29/25 21:00 06/29/25 20:30 14 98 06/29/25 20:00 98.8 F 86 14 124/94 H 98 06/29/25 19:53 97.8 F 75 18 109/73 L 06/29/25 19:30 72 109/73 L 96 06/29/25 19:00 74 117/84 95 06/29/25 18:30 78 99/73 L 98 06/29/25 18:00 68 111/80 99 06/29/25 17:59 84 111/80 99 06/29/25 17:30 68 122/80 100 06/29/25 17:24 76 125/80 98 06/29/25 17:00 98.7 F 76 18 125/80 99 O2 Del Method 06/30/25 13:00 Room Air 06/30/25 11:00 Room Air 06/30/25 09:00 Room Air 06/30/25 08:00 Room Air 06/30/25 08:00 Room Air 06/30/25 07:00 Room Air 06/30/25 05:00 Room Air 06/30/25 04:00 Room Air 06/30/25 03:00 Room Air 06/30/25 01:00 Room Air 06/30/25 00:00 Room Air 06/29/25 23:00 Room Air 06/29/25 21:00 Room Air 06/29/25 20:30 Room Air 06/29/25 20:00 Room Air 06/29/25 19:53 Room Air 06/29/25 19:30 06/29/25 19:00 06/29/25 18:30 06/29/25 18:00 06/29/25 17:59 06/29/25 17:30 06/29/25 17:24 06/29/25 17:00 Room Air Intake and Output 06/29/25 06/30/25 06/30/25 23:59 07:59 15:59 Intake Total 300 / 540 1218.333 / 1568.333 350 / 1568.333 Output Total 0 / 275 275 / 275 Balance 300 / 265 943.333 / 1293.333 350 / 1293.333 Intake: Intake, Oral Amount 240 / 480 240 / 480 Intake, Total IV Amount 300 / 300 978.333 / 1088.333 110 / 1088.333 0.9 % Sodium Chloride 1000ML 1, 978.333 / 978.333 000 ml @ 100 mls/hr IV .Q10H COUNTS INCLUDE 234 BEDS AT THE [facility] Rx#:[id number] Gentamicin Sulfate 400 mg In 0. 110 / 110 9 % Sodium Chloride 100 ml @ 110 mls/hr IV Q24H COUNTS INCLUDE 234 BEDS AT THE [facility] Rx#: [id number] Linezolid 600 mg In 300 ml @ 300 / 300 300 mls/hr IV ONCE ONE Rx#: [id number] Output: Output, Urine Amount 0 / 275 275 / 275 Other: Number of Unmeasured Voids 1 0 Weight 81.647 kg 83.7 kg 83.7 kg Patient Weight 06/30/25 23:59 Weight 83.7 kg Laboratory Results - last 24 hr 06/29/25 17:25: Urine Color Yellow, Urine Appearance Clear, Urine pH 7.0, Ur Specific [place] 1.025, Urine Protein 3+ A, Urine Glucose (UA) Trace, Urine Ketones Trace, Urine Blood 3+ A, Urine Nitrate Positive A, Urine Bilirubin 1+ A, Urine Urobilinogen 4.0, Ur Leukocyte Esterase 2+ A, Urine RBC 20-50, Urine WBC 5-10, Ur Squamous Epith Cells Occasional, Urine Bacteria 1+ 06/29/25 17:35: Urine HCG, Qual Negative 06/29/25 18:51: WBC Cancelled 06/29/25 18:51: WBC 14.3 H, Corrected WBC Cancelled, RBC Cancelled 06/29/25 18:51: RBC 4.57, Hgb Cancelled 06/29/25 18:51: Hgb 14.2, Hct Cancelled 06/29/25 18:51: Hct 41.5, MCV Cancelled 06/29/25 18:51: MCV 90.8, MCH Cancelled 06/29/25 18:51: MCH 31.1, MCHC Cancelled 06/29/25 18:51: MCHC 34.2, RDW Cancelled 06/29/25 18:51: RDW 12.4, Plt Count Cancelled 06/29/25 18:51: Plt Count 306, MPV Cancelled 06/29/25 18:51: MPV 10.4, Neut % (Auto) Cancelled 06/29/25 18:51: Neut % (Auto) 74.9, Lymph % (Auto) Cancelled 06/29/25 18:51: Lymph % (Auto) 17.6, [place] % (Auto) Cancelled 06/29/25 18:51: [place] % (Auto) 5.9, Eos % (Auto) Cancelled 06/29/25 18:51: Eos % (Auto) 0.8, Baso % (Auto) Cancelled 06/29/25 18:51: Baso % (Auto) 0.5, Neut # (Auto) Cancelled 06/29/25 18:51: Neut # (Auto) 10.7 H, Lymph # (Auto) Cancelled 06/29/25 18:51: Lymph # (Auto) 2.5, [place] # (Auto) Cancelled 06/29/25 18:51: [place] # (Auto) 0.9, Eos # (Auto) Cancelled 06/29/25 18:51: Eos # (Auto) 0.1, Baso # (Auto) Cancelled 06/29/25 18:51: Baso # (Auto) 0.1, Sodium 140, Potassium 3.9, Chloride 107, Carbon Dioxide 25, Anion Gap 11.9, BUN 12, Creatinine 0.80, Estimated Creat Clear 133, Estimated GFR 84, Est GFR ( Amer) 102, Glucose 93, Calcium 9.5, Magnesium 1.8, Total Bilirubin 0.5, AST 29, ALT 23, Alkaline Phosphatase 85, Total Protein 8.0, Albumin 4.7, Globulin 3.3 H, Albumin/Globulin Ratio 1.4, Lipase 35 06/30/25 05:40: WBC 7.8 D, RBC 4.27, Hgb 13.2, Hct 39.5, MCV 92.5, MCH 30.9, MCHC 33.4, RDW 12.6, Plt Count 263, MPV 10.4, Neut % (Auto) 49.7, Lymph % (Auto) 40.7, [place] % (Auto) 7.4, Eos % (Auto) 1.7, Baso % (Auto) 0.4, Neut # (Auto) 3.9, Lymph # (Auto) 3.2, [place] # (Auto) 0.6, Eos # (Auto) 0.1, Baso # (Auto) 0.0, Sodium 141, Potassium 3.9, Chloride 109 H, Carbon Dioxide 25, Anion Gap 10.9, BUN 13, Creatinine 0.80, Estimated Creat Clear 133, Estimated GFR 84, Est GFR ( Amer) 102, Glucose 100, Calcium 8.4 I & O for Labs for Last 24 Hours: Intake & Output 06/27/25 06/28/25 06/29/25 06/30/25 23:59 23:59 23:59 23:59 Intake Total 300 / 540 1568.333 / 1568.333 Output Total 0 / 275 275 / 275 Balance 300 / 265 1293.333 / 1293.333 Weight 81.647 kg 83.7 kg Constitutional: Present no acute distress and cooperative Head: Present atraumatic and normocephalic ENT: Present mucous membranes moist Neck: Present normal inspection and full ROM Respiratory: Present CTA bilaterally, normal respiratory effort, able to speak in complete sentences and symmetric chest movement; Absent wheezes or crackles Cardiac: Present Reg Rate and Rhythm; Absent No Murmur GI: Present soft and normal bowel sounds; Absent distention or tenderness Rectal (female): Present deferred (female): Present deferred Extremities: Present normal inspection and full ROM; Absent edema or calf tenderness Skin: Present intact and dry; Absent erythema or rash Neuro: Present Grossly Intact, alert, awake, oriented x 3 and moves all extremities Assessment and Plan *Assessment and plan (1) Urinary tract infection: Status: Acute Category: Medical Code(s): N39.0 - Urinary tract infection, site not specified (2) Dysuria: Status: Acute Category: Medical Code(s): R30.0 - Dysuria (3) Abdominal pain: Status: Acute Category: Medical Code(s): R10.9 - Unspecified abdominal pain Plan Ms. Santos is a 29-year-old female who presented to the emergency department yesterday with complaints of urinary symptoms, lower pelvic pressure/abdominal pain and dysuria. She stated that she went to the [facility] last week and was placed on Macrobid for a UTI but feels that it is not working. Urine culture from 06/26/2025 is positive for MDRO Enterococcus faecalis sensitive to daptomycin, gentamicin, vancomycin. Patient was admitted to the hospital for IV antibiotic treatment, plan of care was as follows: #Urinary tract infection #Dysuria #Abdominal pain ? Patient states her dysuria and abdominal pain are minimal today. She states she feels much better after her IV antibiotics. She is also receiving fluids. Patient was originally started on Zyvox IV but takes Pristiq and is at risk for sick serotonin syndrome. After discussion with pharmacy and the patient she was transition to gentamicin every 24 hours. ? Patient continues to necessitate inpatient care due to gentamicin level monitoring. Plans to discharge home tomorrow with outpatient gentamicin IV infusions to complete 5 days. Patient agreeable to this plan. ? Patient tolerating p.o. diet without issues. Pain is minimal at this time. Will continue to monitor. ? Initial WBC was 14.3, repeat today 7.8. No electrolyte abnormalities noted, kidney function WNL. Full code Ambulate as tolerated VTE?Lovenox 40 Regular diet
[2025-06-30 14:41] LABS: Gentamicin,Random 5.5 ug/ml
[2025-06-30 16:00] VITALS: BP 116/82; PULSE 83; RESP 16; TEMP 37.1; O2SAT 97
--- NOTE | 2025-06-30 17:38 | PC.NURSE ---
Pt is A&OX4. Vital signs stable tolerating room air. IV fluids and abx infused per MAR. No complaints of pain or nausea. Pt resting comfortably in bed with no further needs voiced at this time. Call light within reach.
[2025-06-30 20:00] VITALS: BP 130/69; PULSE 58; RESP 16; TEMP 37.2; O2SAT 98
[2025-06-30] MEDS: ACETAMINOPHEN 325MG TAB 650 MG PO (20:37)
[2025-06-30 23:05] LABS: Gentamicin,Random 0.8 ug/ml
[2025-07-01] VITALS: BP 119/64; PULSE 73; RESP 16; TEMP 36.8; O2SAT 98
[2025-07-01] MEDS: 0.9 % SODIUM CHLORIDE 1000ML 1,000 ML 100 ML IV (03:13)
[2025-07-01 04:00] VITALS: BP 98/64; PULSE 62; RESP 16; TEMP 36.7; O2SAT 97; BMI 29.7
--- NOTE | 2025-07-01 04:49 | PC.NURSE ---
Pt A&OX4 and has tolerated room air. She has denied any pain or N/v. She has ambulated room independently. NS infusing at 100ml/hr. No complaints at this time, call light within reach.
[2025-07-01 08:00] VITALS: BP 118/74; PULSE 75; RESP 18; TEMP 36.9; O2SAT 99
[2025-07-01] MEDS: GENTAMICIN SULFATE 400 MG in 0.9 % SODIUM CHLORIDE 100 ML 110 MG IV (09:25)
--- NOTE | 2025-07-01 11:49 | P.CONPHA_ITS ---
Pharmacy Consult Date: 07/01/25 Time: 11:49 Referring provider: DR. QUINONES Reason for Consult:: GENTAMICIN LEVELS Allergies Allergy/AdvReac Type Severity Reaction Status Date / Time amoxicillin Allergy Hives Verified 06/26/25 11:36 viloxazine (From Qelbree) AdvReac Intermediate Nausea Verified 06/26/25 11:36 Home Medications ?Medication ?Instructions ?Recorded ?Confirmed ?Type desvenlafaxine succinate 50 mg 50 mg PO DAILY #30 tabs 05/20/25 06/29/25 Rx tablet,extended release 24 hr (Pristiq) atomoxetine 40 mg capsule 40 mg PO DAILY 06/30/25 08/03/30 History rizatriptan 10 mg disintegrating 10 mg PO DAILYP PRN m igraine 06/30/25 06/30/25 History tablet headache New Prescriptions to Start Prescriptions: Height: 1.68 m Weight: 84.005 kg Laboratory Results:: Laboratory Results - last 24 hr 06/29/25 17:25: Urine Color Yellow, Urine Appearance Clear, Urine pH 7.0, Ur Specific [place] 1.025, Urine Protein 3+ A, Urine Glucose (UA) Trace, Urine Ketones Trace, Urine Blood 3+ A, Urine Nitrate Positive A, Urine Bilirubin 1+ A, Urine Urobilinogen 4.0, Ur Leukocyte Esterase 2+ A, Urine RBC 20-50, Urine WBC 5-10, Ur Squamous Epith Cells Occasional, Urine Bacteria 1+ 06/30/25 14:06: Random Gentamicin 5.5 06/30/25 22:22: Random Gentamicin 0.8 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: 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 (Updated 06/30/25 @ 16:03 by Augustina Medina APRN) Request for sterilization Left carpal tunnel syndrome Status post normal vaginal delivery H/O nephrolithotomy with removal of calculi Marijuana use during Vulvar pruritus Vaginal discharge during Screening for genetic disease carrier status Anxiety during History of kidney stones Attention Deficit Hyperactivity Disorder (ADHD) Spontaneous miscarriage History of delivery Bipolar disorder Depression Anxiety Carpal tunnel syndrome Assessment and Plan Assessment and plan all Dx Assessment and Plan for all problems:: BASED ON PATIENT FACTORS AND GENTAMICIN LEVELS POST-INFUSION, RECOMMEND CONTINUING CURRENT DOSE OF GENTAMICIN AT 400MG EVERY 24 HOURS. PHARMACY WILL CONTINUE TO MONITOR AND WILL ADJUST DOSE APPROPRIATE. -ROLANDA FERNÁNDEZ PHARMD
--- NOTE | 2025-07-01 12:24 | P.DS_ITS ---
<Statement entered by Syed Khan MD - 07/02/25 15:42> Personally evaluated patient and agree with the plan of care as outlined by the TAPE DECK INSTALLER. General Admission date:: 06/29/25 Discharge date: 07/01/25 HPI HPI HPI: This is a very pleasant 29-year-old female with past medical history of bipolar disorder, anxiety and depression who presents emergency department today with complaints of suprapubic pain. She reports waking up on feeling discomfort in her pelvic region but no actual dysuria. Does not have a significant history of urinary tract infections but states when she does get them she gets very sick. She was seen in the walk-in clinic and received nitrofurantoin for her urinary tract infection. Presents back today with complaints of continued pain despite antibiotic therapy. Culture data available and appears to be MDRO with sensitivities only to daptomycin and gentamicin. ED provider did speak with pharmacy who states linezolid would be a good option but unable to secure oral dosing in the outpatient setting. Linezolid IV is on restriction here but is able to get a dose after consult with pharmacy. Given that she is admitted for IV linezolid and further evaluation to secure oral dosing of medication for urine culture. Hospital Course Hospital Course Hospital Course: Ms. Santos is a 29-year-old female who presented to the emergency department with complaints of urinary symptoms, lower pelvic pressure/abdominal pain and dysuria. She stated that she went to the [facility] last week and was placed on Macrobid for a UTI but feels that it is not working. Urine culture from 06/26/2025 is positive for MDRO Enterococcus faecalis sensitive to daptomycin, gentamicin, vancomycin. Patient was admitted to the hospital for IV antibiotic treatment, plan of care was as follows: #Urinary tract infection #Dysuria #Abdominal pain ? Patient denies abdominal pain, dysuria, urinary frequency, urinary hesitancy today. She states she feels much better after her IV antibiotics. She is tolerating a p.o. diet without issues. Patient was originally started on Zyvox IV but takes Pristiq and is at risk for sick serotonin syndrome. After discussion with pharmacy and the patient, she was transition to gentamicin every 24 hours. Patient received 2 doses IV infusion during admission. ? Patient scheduled for daily infusions of gentamicin in the outpatient infusion clinic. Will complete a total of 5 days gentamicin IV. ? Patient's white count remains stable, no electrolyte abnormalities noted, kidney function in normal range. Total time spent on discharge 32 minutes in counseling, documentation, chart review, and direct care with patient. Exam Data for Last 24 hours Vital signs and Labs for Last 24 Hours: Temp Pulse Resp BP Pulse Ox O2 Del Method 98.4 F 75 18 118/74 99 Room Air 07/01/25 08:00 07/01/25 08:00 07/01/25 08:00 07/01/25 08:00 07/01/25 08:00 07/01/25 11:00 Laboratory Results - last 24 hr 06/29/25 17:25: Urine Color Yellow, Urine Appearance Clear, Urine pH 7.0, Ur Specific [place] 1.025, Urine Protein 3+ A, Urine Glucose (UA) Trace, Urine Ketones Trace, Urine Blood 3+ A, Urine Nitrate Positive A, Urine Bilirubin 1+ A, Urine Urobilinogen 4.0, Ur Leukocyte Esterase 2+ A, Urine RBC 20-50, Urine WBC 5-10, Ur Squamous Epith Cells Occasional, Urine Bacteria 1+ 06/30/25 14:06: Random Gentamicin 5.5 06/30/25 22:22: Random Gentamicin 0.8 I & O for Last 24 hours: Intake & Output 06/28/25 06/29/25 06/30/25 07/01/25 23:59 23:59 23:59 23:59 Intake Total 300 / 540 3168.333 / 3368.333 1305 / 1305 Output Total 0 / 275 275 / 275 0 / 0 Balance 300 / 265 2893.333 / 3093.333 1305 / 1305 Weight 81.647 kg 83.7 kg 84.005 kg Microbiology Reports for the Last 24 Hours: Microbiology 06/29/25 17:25 Urine,Clean Catch Urine Culture - Preliminary Gram Positive Cocci 06/29/25 18:51 Blood Blood Culture - Preliminary NO GROWTH AFTER 24 HOURS 06/29/25 18:51 Blood Blood Culture - Preliminary NO GROWTH AFTER 24 HOURS Constitutional Constitutional: no acute distress and cooperative *Routine HEENT Exam Head: Present normocephalic Eye: Present EOMI ENT: Present mucous membranes moist *Routine Respiratory Exam Respiratory: Present CTA bilaterally, normal respiratory effort, able to speak in complete sentences and symmetric chest movement; Absent wheezes or crackles *Routine Cardiovascular Exam Cardiovascular: Present RRR, Normal S1 and Normal S2; Absent murmur *Routine Abdominal Exam Abdominal: Present soft and normoactive bowel sounds; Absent tenderness or distended *Routine Extremities Exam Extremities: Present full ROM and normal capillary refill; Absent edema *Routine Neurological Exam Neurological: Present alert, oriented X3, vision grossly intact, hearing grossly intact and normal speech Routine Psychiatric Exam Psychiatric: Present normal affect, cooperative, good insight and good judgment Results Data Completed and Pending Labs on day of discharge: Labs from last 24 hours 06/30/25 06/30/25 06/29/25 22:22 14:06 17:25 Urine Color Yellow Urine Appearance Clear Urine pH 7.0 Ur Specific [place] 1.025 Urine Protein 3+ A Urine Glucose (UA) Trace Urine Ketones Trace Urine Blood 3+ A Urine Nitrate Positive A Urine Bilirubin 1+ A Urine Urobilinogen 4.0 Ur Leukocyte Esterase 2+ A Urine RBC 20-50 Urine WBC 5-10 Ur Squamous Epith Cells Occasional Urine Bacteria 1+ Random Gentamicin 0.8 5.5 Preliminary micro results at discharge 06/29/25 17:25 Urine Culture - Preliminary Urine,Clean Catch Gram Positive Cocci 06/29/25 18:51 Blood Culture - Preliminary Blood NO GROWTH AFTER 24 HOURS 06/29/25 18:51 Blood Culture - Preliminary Blood NO GROWTH AFTER 24 HOURS DS: Diagnosis Discharge Diagnosis (1) Urinary tract infection: Status: Acute Code(s): N39.0 - Urinary tract infection, site not specified (2) Dysuria: Status: Acute Code(s): R30.0 - Dysuria (3) Abdominal pain: Status: Acute Code(s): R10.9 - Unspecified abdominal pain Meds Home Medications and Allergies Home Medications ?Medication ?Instructions ?Recorded ?Confirmed ?Type desvenlafaxine succinate 50 mg 50 mg PO DAILY #30 tabs 05/20/25 06/29/25 Rx tablet,extended release 24 hr (Pristiq) atomoxetine 40 mg capsule 40 mg PO DAILY 06/30/2506/07 History rizatriptan 10 mg disintegrating 10 mg PO DAILYP PRN m igraine 06/30/25 06/30/25 History tablet headache New Prescriptions to Start Prescriptions: Allergies Allergy/AdvReac Type Severity Reaction Status Date / Time amoxicillin Allergy Hives Verified 06/26/25 11:36 viloxazine (From Qel[place]ree) AdvReac Intermediate Nausea Verified 06/26/25 11:36 Discharge Plan Disposition Patient Disposition: Home, Self-Care Condition: Good Follow up Plan Follow up with: Jacqueline Isbell PA [Primary Care Provider, Medical] - 1 week Prescriptions/Medication Reconciliation: Continued desvenlafaxine succinate [Pristiq] 50 mg tablet extended release 24 hr 50 mg PO DAILY Qty: 30 2RF atomoxetine 40 mg capsule 40 mg PO DAILY Patient Comments: TAKE ONE CAPSULE BY MOUTH EVERY DAY rizatriptan 10 mg tablet,disintegrating 10 mg PO DAILYP PRN (Reason: migraine headache) Rx Instructions: do not exceed 3 doses per 24 hrs Problem Reconciliation Problems Reviewed?: Yes Patient Discharge Instructions ACTIVITY: Continue current activity DIET: continue same diet Patient Instructions: DI for Urinary Tract Infection (UTI), Stop Light Infection Print Language: Tajik Providers Primary Care Provider: Jacqueline Isbell Admit Provider: Kulwant Robles Attending Provider: Kulwant Robles
--- NOTE | 2025-07-02 09:36 | PC.NURSE ---
urine culture results forwarded to hospitalist.
--- NOTE | 2025-07-03 12:45 | SW/DCPLANNER ---
Phoned patient x2. Left message with name and call back number. Ruthann Benson
== END 2025-07-01 13:59 | disposition home or self-care (01) ==
LOC: ER 19:37 → 2ND 19:44
PROVIDERS: Nurse Practitioner; Nurse Practitioner Acute Care; Student in an Organized Health Care Education/Training Program; Admitting Provider Internal Medicine; Emergency Provider Student in an Organized Health Care Education/Training Program; PCP Physician Assistant; Visit Provider Internal Medicine
DX: N30.00 Acute cystitis without hematuria (principal); F31.32 Bipolar disorder, current episode depressed, moderate; F41.9 Anxiety disorder, unspecified; R10.9 Unspecified abdominal pain; F90.9 Attention-deficit hyperactivity disorder, unspecified type; F17.290 Nicotine dependence, other tobacco product, uncomplicated; B95.2 Enterococcus as the cause of diseases classified elsewhere; Z88.0 Allergy status to penicillin; Z88.8 Allergy status to other drugs, medicaments and biological substances; Z79.899 Other long term (current) drug therapy
CPT/HCPCS: 36415; 80048; 80053; 80170; 81001; 81025; 83690; 83735; 85025; 87040; 87086; 87088; 87186; 96361; 96365; 96366; 96367; 96375; 99284; G0378; J1580; J1650; J1885; J2020; J7030

== ENCOUNTER 2025-07-02 15:12 | Outpatient (CLI) | payer OTHER, SELFPAY ==
--- OUTSIDE RECORDS SUMMARY | 2025-07-02 15:16 | XMS_ITS | Encounter Summary ---
Author Organization Healthcare Address [address] [place] [address] Care Team Providers Care Lead Radiologic Technologist Name Role Phone Pcp, No Primary Care Provider Unavailabl e Encounter Details Date Type Department Care Team (Late st Contact Info) Description 11/05/2024 Ophth Exam [facility] [address] [place] [address] Diaz Conrad MD [address] [place], [place] [id number] 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 Tobacco Use Types Packs/Day Years [...] on filedocumented in this encounter Care Teams Lead Radiologic Technologist Relationship Specialty Start Date End Date Pcp, No [address] [place] [address] PCP - General Family Medicine 11/05/24 documented as of this encounter
--- OUTSIDE RECORDS SUMMARY | 2025-07-02 15:16 | XMS_ITS | Clinical Summary ---
Author Organization [facility] Address [address] [place] [id number] Phone [email or web address] Care Team Providers Care Monogram Technician Name Role Phone Provider, No Primary Care [...] 3 Months Results * Spirometry, Complete CPT 78116 (05/16/2025 1:27 PM EDT) FVC 3.98 liters Comment:99 FEV1 3.51 liters Comment:104 FEV1/FVC 88 % Comment:104 us Jany Shea CLEARING HOUSE CLERK PFT ORDERABLES Final Result from Last 3 Months Insurance OPT OUT NO COPAY NB Care Teams Monogram Technician Relationship Specialty Start Date End Date Provider, KRYSTEN Glass [id number] PCP - General Retail Marketing Coordinator 08/30/23
--- OUTSIDE RECORDS SUMMARY | 2025-07-02 15:16 | XMS_ITS | Clinical Summary ---
Author Organization [facility] Address [facility] [place] [address] Care Team Providers Care Avionics Shop Supervisor Name Role Phone Pcp, No Primary Care [...] Vaccines (1 - 3-dose SCDM series) 2021 [id number] Vaccine (1 - season) 2024 [facility]-Cervical Cancer [...] patient's age to complete this topic Insurance [facility] MEDICAID Care Teams Avionics Shop Supervisor Relationship Specialty Start Date End Date Pcp, No [address] [place] [address] PCP - General Family Medicine 11/05/24
[2025-07-02] MEDS: 0.9 % SODIUM CHLORIDE 50 ML IV (15:22)
[2025-07-02 15:23] VITALS: BP 122/73; PULSE 71; RESP 18; TEMP 36.4; O2SAT 99
[2025-07-02] MEDS: GENTAMICIN SULFATE 400 MG in 0.9 % SODIUM CHLORIDE 100 ML 100 MG IV (15:23)
[2025-07-02] MEDS: SODIUM CHLORIDE 0.9% 10ML FLUSH SYRINGE 10 ML IV (15:23)
[2025-07-02 16:34] VITALS: BP 138/78; PULSE 74; RESP 18; O2SAT 98
== END 2025-07-02 16:38 | disposition home or self-care (01) ==
LOC: INF 15:14
PROVIDERS: PCP Physician Assistant
DX: N39.0 Urinary tract infection, site not specified (principal)
CPT/HCPCS: 96365; J1580

== ENCOUNTER 2025-07-03 11:10 | Outpatient (CLI) | payer OTHER, SELFPAY ==
--- OUTSIDE RECORDS SUMMARY | 2025-07-03 11:22 | XMS_ITS | Clinical Summary ---
Author Organization [facility] Address [facility] [place] [address] Care Team Providers Care Trust Operations Assistant Name Role Phone Pcp, No Primary Care [...] Vaccines (1 - 3-dose SCDM series) 2021 [id number] Vaccine (1 - season) 2024 [facility]-Cervical Cancer [...] patient's age to complete this topic Insurance [facility] MEDICAID Care Teams Trust Operations Assistant Relationship Specialty Start Date End Date Pcp, No [address] [place] [address] PCP - General Family Medicine 11/05/24
--- OUTSIDE RECORDS SUMMARY | 2025-07-03 11:22 | XMS_ITS | Encounter Summary ---
Author Organization [facility] Address [address] [place] [address] Care Team Providers Care Footwear Production Machine Operator Name Role Phone Pcp, No Primary Care Provider Unavailabl e Encounter Details Date Type Department Care Team (Late st Contact Info) Description 11/05/2024 Ophth Exam [facility] [address] [place] [address] Diaz Conrad MD [address] [place], [place] [id number] 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 Tobacco Use Types Packs/Day Years [...] on filedocumented in this encounter Care Teams Footwear Production Machine Operator Relationship Specialty Start Date End Date Pcp, No [address] [place] [address] PCP - General Family Medicine 11/05/24 documented as of this encounter
--- OUTSIDE RECORDS SUMMARY | 2025-07-03 11:22 | XMS_ITS | Clinical Summary ---
Author Organization [facility] Address [address] [place] [address] Phone [email or web address] Care Team Providers Care City Maintenance Manager Name Role Phone Provider, No Primary Care [...] 3 Months Results * Spirometry, Complete CPT 45266 (05/16/2025 1:27 PM EDT) FVC 3.98 liters Comment:99 FEV1 3.51 liters Comment:104 FEV1/FVC 88 % Comment:104 us Jany Shea HEAD MACHINIST PFT ORDERABLES Final Result from Last 3 Months Insurance OPT OUT NO COPAY NB Care Teams City Maintenance Manager Relationship Specialty Start Date End Date Provider, KRYSTEN Glass [id number] PCP - General Options Trader 08/30/23
[2025-07-03] MEDS: GENTAMICIN SULFATE 400 MG in 0.9 % SODIUM CHLORIDE 100 ML 110 MG IV (11:23)
[2025-07-03 11:31] VITALS: BP 107/56; PULSE 75; RESP 18; TEMP 36.8; O2SAT 99
[2025-07-03 12:00] VITALS: BP 115/58; PULSE 73
[2025-07-03 12:36] VITALS: BP 123/66; PULSE 76; RESP 18; TEMP 36.8; O2SAT 99
== END 2025-07-03 12:50 | disposition home or self-care (01) ==
LOC: INF 11:12
PROVIDERS: PCP Nurse Practitioner
DX: N39.0 Urinary tract infection, site not specified (principal)
CPT/HCPCS: 96365; J1580

== ENCOUNTER 2025-07-04 11:40 | Outpatient (CLI) | payer OTHER, SELFPAY ==
--- OUTSIDE RECORDS SUMMARY | 2025-07-04 11:45 | XMS_ITS | Clinical Summary ---
Author Organization [facility] Address [facility] [place] [place] [address] Care Team Providers Care Agricultural Agent Name Role Phone Pcp, No Primary Care [...] Vaccines (1 - 3-dose SCDM series) 2021 [id number] Vaccine (1 - season) 2024 [facility]-Cervical Cancer [...] patient's age to complete this topic Insurance [facility] MEDICAID Care Teams Agricultural Agent Relationship Specialty Start Date End Date Pcp, No [address] [place] [address] PCP - General Family Medicine 11/05/24
--- OUTSIDE RECORDS SUMMARY | 2025-07-04 11:45 | XMS_ITS | Encounter Summary ---
Author Organization [facility] Address [address] [place] [address] Care Team Providers Care Gum Remover Name Role Phone Pcp, No Primary Care Provider Unavailabl e Encounter Details Date Type Department Care Team (Late st Contact Info) Description 11/05/2024 Ophth Exam [facility] [address] [place] [address] Diaz Conrad MD [address] [place], [place] [id number] 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 Tobacco Use Types Packs/Day Years [...] on filedocumented in this encounter Care Teams Gum Remover Relationship Specialty Start Date End Date Pcp, No [address] [place] [address] PCP - General Family Medicine 11/05/24 documented as of this encounter
--- OUTSIDE RECORDS SUMMARY | 2025-07-04 11:45 | XMS_ITS | Clinical Summary ---
Author Organization [facility] Address [address] [place] [address] Phone [email or web address] Care Team Providers Care Research Consultant Name Role Phone Provider, No Primary Care [...] 3 Months Results * Spirometry, Complete CPT 17255 (05/16/2025 1:27 PM EDT) FVC 3.98 liters Comment:99 FEV1 3.51 liters Comment:104 FEV1/FVC 88 % Comment:104 us Jany Shea SWATCH CHECKER PFT ORDERABLES Final Result from Last 3 Months Insurance OPT OUT NO COPAY NB Care Teams Research Consultant Relationship Specialty Start Date End Date Provider, KRYSTEN Glass [id number] PCP - General Senior Air Director 08/30/23
[2025-07-04 11:58] VITALS: BP 121/74; PULSE 63; RESP 18; O2SAT 100
[2025-07-04] MEDS: GENTAMICIN SULFATE 400 MG in 0.9 % SODIUM CHLORIDE 100 ML 100 MG IV (11:58)
[2025-07-04 13:21] VITALS: BP 130/88; PULSE 72; RESP 18; O2SAT 100
== END 2025-07-04 13:21 | disposition home or self-care (01) ==
LOC: INF 11:43
PROVIDERS: PCP Physician Assistant
DX: R30.0 Dysuria (principal)
CPT/HCPCS: 96365; J1580